=== PATIENT | female | born 1960 | race Caucasian/White ===

== ENCOUNTER 2017-07-09 | Emergency (ER) | payer OTHER ==
[~2017-07-09] VITALS: Ht 167.6 cm; Wt 55.0 kg
[~2017-07-09] MED LIST: DICY1TAB26 PO; MOTR200T PO; PRIL20TA2 PO; TAB-TAB PO; VITATAB11 PO; ZOFR4TAB3 SL
[2017-07-09 00:01] VITALS: PULSE 105; RESP 24; TEMP 98.7; O2SAT 100
[2017-07-09 00:30] VITALS: BP 105/56; PULSE 103; RESP 28; O2SAT 97
[2017-07-09] MEDS ORDERED: SODIUM CHLORIDE 0.9% FLUSH 10 ML FLUSH IVF PRN (00:30)
--- NOTE | 2017-07-09 00:58 | RADRPT ---
EXAM DATE/TIME: 07/09/2017 00:39 [facility] COMPARISON: No previous studies available for comparison. INDICATIONS : Cough. MEDICAL HISTORY : Chronic obstructive pulmonary disease. SURGICAL HISTORY : None. ENCOUNTER: Initial ACUITY: 1 day PAIN SCORE: 0/10 LOCATION: Bilateral chest FINDINGS: A single view of the chest demonstrates the lungs to be symmetrically aerated without evidence of mas s, infiltrate or effusion. The cardiomediastinal contours are unremarkable. Osseous structures are intact. CONCLUSION: No acute cardiopulmonary disease demonstrated. Kristian Abraham MD on July 09, 2017 at 0:56 Board Certified Radiologist. This report was verified electronically.
[2017-07-09 01:19] LABS: BICARBONATE 28.5 MEQ/L (21.0-32.0); POTASSIUM 3.4 MEQ/L (3.5-5.1)
--- NOTE | 2017-07-09 01:44 | PD ---
HPI . Cough Chief Complaint: General Weakness Time Seen by Provider: 00:30 Travel History International Travel<30 days: No Contact w/Intl Traveler<30days: No Traveled to known affect area: No History of Present Illness HPI This patient was sent to us from [facility] for evaluation of cough. She is currently at [facility] for alcohol abuse. She is of absolutely no use as far as a history is concerned. PFSH Past Medical History Cancer: Yes (vocal cord right side) COPD: Yes Diminished Hearing: No Respiratory: Yes (COPD) Immunizations Current: Yes Radiation Therapy: Yes (2004) Tetanus Vaccination: > 5 Years ?: Not : 2 Para: 2 Past Surgical History Cholecystectomy: Yes Genitourinary Surgery: Yes (fistula repair bladder) Hysterectomy: Yes (partial) Social History Alcohol Use: Yes (1 -2 drinks daily) Tobacco Use: Yes (1/2 PPD) Substance Use: No Allergies-Medications (Allergen,Severity, Reaction): Coded Allergies: penicillin G (Unverified Allergy, Severe, hives, 07/09/17) Reported Meds & Prescriptions Reported Meds & Active Scripts Active No Active Prescriptions or Reported Medications Review of Systems ROS Limitations: Poor Historian Respiratory: Positive: Cough Physical Exam Narrative GENERAL: This is a chronically ill-appearing woman who appears much older than her stated age. SKIN: warm/dry. Scattered old bruises. HEAD: Normocephalic. Atraumatic. EYES: Pupils equal and round. No scleral icterus. No injection or drainage. ENT: No nasal bleeding or discharge. Mucous membranes pink and moist. NECK: Trachea midline. Full range of motion without pain.. CARDIOVASCULAR: Regular rate and rhythm. Heart sounds are normal. RESPIRATORY: No accessory muscle use. Clear to auscultation. Breath sounds equal bilaterally. GASTROINTESTINAL: Abdomen soft. Nontender. Bowel sounds present. Nondistended. MUSCULOSKELETAL: No obvious deformities. NEUROLOGICAL: Awake and alert. No obvious cranial nerve deficits. Motor grossly within normal limits. Normal speech. PSYCHIATRIC: History of substance abuse. Data Data Last Documented VS Vital Signs Date Time Temp Pulse Resp B/P (MAP) Pulse Ox O2 Delivery O2 Flow Rate FiO2 07/09/17 00:30 103 28 105/56 (72) 97 2.00 07/09/17 00:01 98.7 Orders Orders Basic Metabolic Panel (Bmp) (07/09/17 00:30) Complete Blood Count With Diff (07/09/17 00:30) Chest, Single Ap (07/09/17 00:30) Sodium Chloride 0.9% Flush (Ns Flush) (07/09/17 00:30) Sodium Chlor 0.9% 1000 Ml Inj (Ns 1000 M (07/09/17 01:45) Labs Laboratory Tests Test 07/09/17 00:39 07/09/17 00:44 Blood Urea Nitrogen 8 MG/DL Creatinine 0.56 MG/DL Random Glucose 98 MG/DL Calcium Level 8.3 MG/DL Sodium Level 135 MEQ/L Potassium Level 3.4 MEQ/L Chloride Level 97 MEQ/L Carbon Dioxide Level 28.5 MEQ/L Anion Gap 10 MEQ/L Estimat Glomerular Filtration Rate 111 ML/MIN MDM Medical Decision Making Medical Screen Exam Complete: Yes Emergency Medical Condition: Yes Differential Diagnosis Differential diagnosis includes but is not limited to viral respiratory illness , bronchitis, pneumonia, allergies, CHF, asthma/COPD. Narrative Course Patient was sent to us from [facility] for the evaluation of cough. Vital Signs Date Time Temp Pulse Resp B/P (MAP) Pulse Ox O2 Delivery O2 Flow Rate FiO2 07/09/17 00:30 103 28 105/56 (72) 97 2.00 07/09/17 00:01 98.7 105 24 100 She is now off of oxygen and her sats continue to run in the upper 90s. Chest x-ray is negative for infiltrate. CBC Diagram 07/09/17 00:44 BMP Diagram 07/09/17 00:39 Calcium Level 8.3 L This patient is stable for discharge back to [facility]. I hand wrote her a prescription for Delsym. The long-acting formulation was not in our formulary. Diagnosis Primary Impression: Cough Patient Instructions: Acute Cough (ED), General Instructions Med/Other Pt SpecificInfo: Prescription(s) given Scripts No Active Prescriptions or Reported Meds Disposition: DISCHARGE HOME Condition: Stable Akiko Singh MD Jul 09, 2017 01:44
[2017-07-09] MEDS ORDERED: SODIUM CHLOR 0.9% 1000 ML INJ 1,000 ML IV ONE (01:45)
[2017-07-09 01:48] LABS: AUTOMATED NEUTROPHIL # 10.4 TH/MM3 (1.8-7.7); BASOPHIL % 0.1 % (0.0-2.0); HEMATOCRIT 38.5 % (35.0-46.0); HEMO FLAGS DIFF FINAL; LYMPH % 3.1 % (9.0-44.0); LYMPHOCYTE # 0.4 TH/MM3 (1.0-4.8); MEAN CELL VOLUME 108.6 FL (80.0-100.0); MEAN CORPUSCULAR HEMOGLOBIN 37.6 PG (27.0-34.0); MEAN CORPUSCULAR HGB CONC 34.7 % (32.0-36.0); NEUT % 86.8 % (16.0-70.0); PLATELET COUNT 183 TH/MM3 (150-450); RED BLOOD COUNT 3.55 MIL/MM3 (4.00-5.30); RED CELL DISTRIBUTION WIDTH 14.2 % (11.6-17.2)
[2017-07-09] MEDS ORDERED: CLON0.1T PO (22:19)
[2017-07-09] MEDS ORDERED: VIST25CA PO (22:19)
[2017-07-09] MEDS ORDERED: LORA-392 PO (22:19)
== END 2017-07-09 03:34 | disposition home or self-care (01) ==
LOC: NEPE → NEPB 03:34
DX: R05 Cough (principal); F17.200 Nicotine dependence, unspecified, uncomplicated
CPT/HCPCS: 71010; 80048; 85025; 99284; J7030

== ENCOUNTER 2017-07-09 19:14 | Inpatient (IN) | payer OTHER ==
[~2017-07-09] VITALS: Ht 149.9 cm; Wt 45.0 kg
[2017-07-09 19:56] VITALS: BP 102/69; PULSE 91; RESP 24; TEMP 98
[2017-07-09] MEDS ORDERED: RESP: ALBUTEROL 2.5 MG/IPRATROPIUM 0.5 MG NEB (SCH) NEB ONE (20:00)
[2017-07-09] MEDS ORDERED: methylPREDNISolone SOD SUCC 125 MG/2 ML VIAL IV PUSH ONE (20:00)
--- NOTE | 2017-07-09 20:01 | PD ---
HPI Chief Complaint: Respiratory Symptoms Time Seen by Provider: 19:39 Travel History International Travel<30 days: No Contact w/Intl Traveler<30days: No History of Present Illness HPI The patient is a 56 year old female who presents to the [facility] emergency department with a history of shortness of breath that she reports has gradually been worsening since Saturday. She reports that she's had a cough that has been intermittent only productive of yellow sputum for the last 2 months. The patient was seen in the emergency department yesterday and had an evaluation done and was discharged back to the [facility] to continue alcohol-related rehabilitation with a prescription for Delsym. The patient reports that she was admitted to the [facility] on Saturday for alcohol abuse. She reports that she was drinking vodka daily. 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 The patient is incidentally also noted to have older appearing ecchymosis underneath the right eye and a Band-Aid over the nasal bridge. She reports that she fell approximately a week ago. She reports having a headache and neck pain. She denies being evaluated for this previously. The patient reports that she does have a history of COPD. The patient is brought in by ambulance services. The patient's O2 saturations on room air were 88% prior to arrival. The patient was placed on 2 L nasal cannula by ambulance services and her O2 saturation came up to 92-93%. She denies being on oxygen at home. On review of systems, she denies any recent known fevers, neck pain, chest pain, abdominal pain, vomiting, diarrhea, urinary symptoms, or neurologic symptoms. The patient reports that she did have vomiting on Saturday, however this resolved. [facility] Past Medical History Narrative Medical The patient's past medical history is significant for vocal cord cancer status post surgery and radiation therapy, history of COPD, history of alcohol abuse, currently in rehabilitation, history of tobacco abuse. Cancer: Yes (vocal cord right side) COPD: Yes Diminished Hearing: No Respiratory: Yes (COPD) Immunizations Current: Yes Radiation Therapy: Yes (2004) : 2 Para: 2 Past Surgical History Narrative Surgical The patient's past surgical history is significant for a cholecystectomy, fistula repair, partial hysterectomy Cholecystectomy: Yes Genitourinary Surgery: Yes (fistula repair bladder) Hysterectomy: Yes (partial) Social History Alcohol Use: No (in rehabilitation since Saturday) Tobacco Use: Yes (1/2 PPD) Substance Use: No Allergies-Medications (Allergen,Severity, Reaction): Coded Allergies: penicillin G (Verified Allergy, Severe, hives, 07/09/17) Reported Meds & Prescriptions Reported Meds & Active Scripts Active Reported Clonidine (Clonidine HCl) 0.1 Mg Tab 0.1 Mg PO Q3HR PRN Vistaril (Hydroxyzine Pamoate) 25 Mg Cap 25 Mg PO Q6H PRN Ativan (Lorazepam) 0.5 Mg Tab 0.5 Mg PO Q6H PRN Review of Systems Except as stated in HPI: all other systems reviewed are Neg General / Constitutional: No: Fever Eyes: No: Visual changes HENT: Positive: Congestion, No: Headaches Cardiovascular: Positive: Dyspnea on exertion, No: Chest Pain or Discomfort Respiratory: Positive: Cough, Shortness of Breath Gastrointestinal: Positive: Nausea, Vomiting (last a few days ago), No: Diarrhea, Abdominal Pain Genitourinary: No: Dysuria Musculoskeletal: No: Pain Skin: No Rash Neurologic: No: Weakness, Focal Abnormalities, Change in Mentation, Slurred Speech, Sensory Disturbance Psychiatric: No: Depression Endocrine: No: Polydipsia Hematologic/Lymphatic: No: Easy Bruising Physical Exam Narrative General: The patient is a well-developed thin appearing female in no acute distress. Head and Neck exam: Head is normocephalic, evidence of older appearing trauma with an area of older appearing bruise underneath the right eye, abrasion over lying the nasal bridge. No crepitus or step-off. No increase facial bone motility on palpation. Eyes: EOMI, pupils are equal round and reactive to light. Nose: Midline septum with pink mucous membranes Mouth: Dentition unremarkable. Moist mucus membranes. Posterior oropharynx is not erythematous. No tonsillar hypertrophy. Uvula midline. Airway patent. Neck: No palpable lymphadenopathy. No nuchal rigidity. No thyromegaly. No spinous process tenderness to palpation, no step-off or crepitus, no erythema or ecchymosis. The patient does however have paraspinal muscle tenderness on palpation of the cervical spine musculature bilaterally. She reports neck tightness with rotation of her neck and flexion and extension. Cardiovascular: Regular rate and rhythm without murmurs, gallops, or rubs. Lungs: Clear to auscultation bilaterally. No wheezes, rhonchi, or rales. Abdomen: Soft, without tenderness to palpation in all 4 quadrants of the abdomen. No guarding, rebound, or rigidity. Normal bowel sounds are audible. No tenderness on palpation of McBurney's point. Extremities: No clubbing, cyanosis, or edema. 2+ pulses in all 4 extremities. No calf tenderness on palpation. Back: No spinous process tenderness to palpation. No costovertebral angle tenderness to palpation. Neurologic Exam: Grossly nonfocal. Skin Exam: No rash noted. Intact skin that is warm and dry. Data Data Last Documented VS Vital Signs Date Time Temp Pulse Resp B/P (MAP) Pulse Ox O2 Delivery O2 Flow Rate FiO2 07/09/17 21:06 94 Nasal Cannula 2.00 07/09/17 20:52 92 24 07/09/17 19:56 98.0 102/69 (80) Orders Orders Electrocardiogram (07/09/17 19:51) Complete Blood Count With Diff (07/09/17 19:51) Comprehensive Metabolic Panel (07/09/17 19:51) Ckmb (Isoenzyme) Profile (07/09/17 19:51) Troponin I (07/09/17 19:51) B-Type Natriuretic Peptide (07/09/17 19:51) Prothrombin Time / Inr (Pt) (07/09/17 19:51) Act Partial Throm Time (Ptt) (07/09/17 19:51) Blood Culture (07/09/17 19:51) Urinalysis - C+S If Indicated (07/09/17 19:51) D-Dimer (07/09/17 19:51) Magnesium (Mg) (07/09/17 19:51) Chest, Single Ap (07/09/17 19:51) Ct Brain W/O Iv Contrast(Rout) (07/09/17 19:51) Iv Access Insert/Monitor (07/09/17 19:51) Ecg Monitoring (07/09/17 19:51) Oximetry (07/09/17 19:51) Lactic Acid Sepsis Protocol (07/09/17 19:51) Ct Cerv Spine W/O Contrast (07/09/17 ) Methylprednisolone So Succ Inj (Solumedr (07/09/17 20:00) Albuterol-Ipratropium Neb (Duoneb Neb) (07/09/17 20:00) Urine Culture (07/09/17 20:40) Ceftriaxone Inj (Rocephin Inj) (07/09/17 21:30) Azithromycin Inj (Zithromax Inj) (07/09/17 21:30) Mri C Spine W&W/O Contrast (07/09/17 ) Admit Order (Ed Use Only) (07/09/17 21:54) Ct Pulmonary Angiogram (07/09/17 ) Place In Observation (07/09/17 ) Vital Signs (Adult) Q4H (07/09/17 22:05) Activity Oob With Assistance (07/09/17 22:05) Sign Artist / Telemetry .CONTINUOUS (07/09/17 22:05) Diet Heart Healthy (07/10/17 Breakfast) Sodium Chloride 0.9% Flush (Ns Flush) (07/09/17 22:15) Sodium Chloride 0.9% Flush (Ns Flush) (07/10/17 09:00) Basic Metabolic Panel (Bmp) (07/10/17 06:00) Complete Blood Count With Diff (07/10/17 06:00) Case Management Consult (07/09/17 22:05) Naloxone Inj (Narcan Inj) (07/09/17 22:15) Labs Laboratory Tests Test 07/09/17 20:40 White Blood Count 11.8 TH/MM3 Red Blood Count 3.13 MIL/MM3 Hemoglobin 11.6 GM/DL Hematocrit 33.6 % Mean Corpuscular Volume 107.4 FL Mean Corpuscular Hemoglobin 37.1 PG Mean Corpuscular Hemoglobin Concent 34.5 % Red Cell Distribution Width 14.3 % Platelet Count 149 TH/MM3 Mean Platelet Volume 7.7 FL Neutrophils (%) (Auto) 78.5 % Lymphocytes (%) (Auto) 7.3 % Monocytes (%) (Auto) 13.5 % Eosinophils (%) (Auto) 0.5 % Basophils (%) (Auto) 0.2 % Neutrophils # (Auto) 9.2 TH/MM3 Lymphocytes # (Auto) 0.9 TH/MM3 Monocytes # (Auto) 1.6 TH/MM3 Eosinophils # (Auto) 0.1 TH/MM3 Basophils # (Auto) 0.0 TH/MM3 CBC Comment DIFF FINAL Differential Comment Prothrombin Time 12.0 SEC Prothromb Time International Ratio 1.1 RATIO Activated Partial Thromboplast Time 31.7 SEC D-Dimer Quantitative (PE/DVT) 3.06 MG/L FEU Urine Color YELLOW Urine Turbidity HAZY Urine pH 5.5 Urine Specific [place] 1.010 Urine Protein NEG mg/dL Urine Glucose (UA) NEG mg/dL Urine Ketones 10 mg/dL Urine Occult Blood NEG Urine Nitrite POS Urine Bilirubin NEG Urine Urobilinogen 8.0 MG/DL Urine Leukocyte Esterase LARGE Urine RBC 2 /hpf Urine WBC 19 /hpf Urine Squamous Epithelial Cells 2 /hpf Urine Bacteria MANY /hpf Urine Mucus FEW /lpf Microscopic Urinalysis Comment CULTURE INDICATED Blood Urea Nitrogen 10 MG/DL Creatinine 0.40 MG/DL Random Glucose 86 MG/DL Total Protein 5.9 GM/DL Albumin 1.9 GM/DL Calcium Level 8.2 MG/DL Magnesium Level 1.4 MG/DL Alkaline Phosphatase 132 U/L Aspartate Amino Transf (AST/SGOT) 54 U/L Alanine Aminotransferase (ALT/SGPT) 18 U/L Total Bilirubin 0.8 MG/DL Sodium Level 136 MEQ/L Potassium Level 3.2 MEQ/L Chloride Level 101 MEQ/L Carbon Dioxide Level 24.5 MEQ/L Anion Gap 11 MEQ/L Estimat Glomerular Filtration Rate 164 ML/MIN Lactic Acid Level 0.8 mmol/L Total Creatine Kinase 24 U/L Troponin I LESS THAN 0.02 NG/ML B-Type Natriuretic Peptide 316 PG/ML MDM Medical Decision Making Medical Screen Exam Complete: Yes Emergency Medical Condition: Yes Medical Record Reviewed: Yes Differential Diagnosis COPD exacerbation, versus pulmonary embolus, versus pneumonia, versus new-onset congestive heart failure, versus acute coronary syndrome Narrative Course During the course of the patients emergency department visit, the patients history, examination, and differential diagnosis were reviewed with the patient. The patient had IV access obtained and blood work sent for analysis. The patient was placed on a general expeditor with oximetry and blood pressure monitoring. The patient had an ECG done on arrival. The patient's ECG shows a sinus rhythm with a short NE interval, right bundle branch block with a QRS duration of 122 ms, QTC 453 ms, no acute ST segment elevation. T waves are inverted in V1. The patient was initially provided Solu-Medrol 125 mg IV, DuoNeb 1. Rocephin 1 g IV, Zithromax 500 IV for respiratory coverage of suspected bronchitis versus pneumonia with a COPD exacerbation. The patients laboratory studies were reviewed and remarkable for a white count of 11.8, hemoglobin 11.6, platelets 149 with 78.5 neutrophils, lymphocytes 7.3, monocytes 13.5. CMP is remarkable for potassium of 3.2 which will be supplemented orally, creatinine 0.40, calcium 8.2, magnesium 1.4 which will be supplemented IV, AST 54, alkaline phosphatase 132, CPK 24, troponin I less than 0.02, BNP 316, albumin 1.9, urinalysis shows positive nitrite 8 urobilinogen, large leukocyte esterase, 19 WBCs and many bacteria, culture indicated. The patient's initial dose of Rocephin will cover for urinary tract infection. Radiology studies were reviewed and remarkable for a chest x-ray that shows volume loss in the right chest, prominence of the hilar regions. The prominent hilar regions and the volume loss of the right chest could be further evaluated with a CT scan ideally with contrast according to the reading radiologist. CT scan of the brain showed no acute abnormality. CT scan of the C-spine was called to me by Dr. Johnston as showing a C3 vertebral lucency that appears to be chronic, and a right lateral recess disc protrusion with epidural mass like effect. He recommended an MRI of the C-spine with and without contrast on a nonemergent basis to further evaluate these abnormalities. The MRI was ordered. The patients results were discussed with the patient, including the plan of care. I explained that further testing and/ or monitoring is indicated based on the patients history, examination, and/ or laboratory findings. Therefore, I recommended admission for additional evaluation. The patient expressed understanding and was agreeable with this plan. The patient was admitted to the hospital in stable condition and [facility] Communication Physician Communication The patient's case is discussed with Dr. Rosales who did agree to admit the patient for further evaluation and treatment at this time. Diagnosis Primary Impression: Hypoxemia Additional Impressions: Shortness of breath Abnormal CT scan, cervical spine Admitting Information Admitting Physician Requests: Admit Keesha Portillo MD Jul 09, 2017 20:01
--- NOTE | 2017-07-09 20:47 | RADRPT ---
EXAM DATE/TIME: 07/09/2017 20:04 [facility] COMPARISON: CHEST SINGLE AP, July 09, 2017, 0:39. INDICATIONS : Short of breath. MEDICAL HISTORY : Chronic obstructive pulmonary disease. SURGICAL HISTORY : None. ENCOUNTER: Initial ACUITY: 1 day PAIN SCORE: 0/10 LOCATION: Bilateral chest FINDINGS: There is volume loss in the right chest with shift of the heart and mediastinal structures towards th e right and elevation of the right hemidiaphragm. The hilar regions appear somewhat prominent. There is minimal increased density seen at the right base. The left lung is clear. Surgical hardware is see n at the proximal left humerus. CONCLUSION: 1. Volume loss in the right chest. 2. Prominence of the hilar regions. 3. The prominent hilar regions and the volume loss at the right chest could be further evaluated with a CT examination ideally with contrast if there is no contraindication. Kristian Fierro MD on July 09, 2017 at 20:43 Board Certified Radiologist. This report was verified electronically.
[2017-07-09 20:53] LABS: AUTOMATED NEUTROPHIL # 9.2 TH/MM3 (1.8-7.7); BASOPHIL % 0.2 % (0.0-2.0); EOSINOPHIL # 0.1 TH/MM3 (0-0.4); EOSINOPHIL % 0.5 % (0.0-4.0); HEMATOCRIT 33.6 % (35.0-46.0); HEMO FLAGS DIFF FINAL; LYMPH % 7.3 % (9.0-44.0); LYMPHOCYTE # 0.9 TH/MM3 (1.0-4.8); MEAN CELL VOLUME 107.4 FL (80.0-100.0); MEAN CORPUSCULAR HEMOGLOBIN 37.1 PG (27.0-34.0); MEAN CORPUSCULAR HGB CONC 34.5 % (32.0-36.0); MONO % 13.5 % (0.0-8.0); NEUT % 78.5 % (16.0-70.0); PLATELET COUNT 149 TH/MM3 (150-450); RED BLOOD COUNT 3.13 MIL/MM3 (4.00-5.30); RED CELL DISTRIBUTION WIDTH 14.3 % (11.6-17.2); WHITE BLOOD COUNT 11.8 TH/MM3 (4.0-11.0)
[2017-07-09 20:54] VITALS: O2SAT 94
[2017-07-09 21:00] LABS: BACTERIA, URINE MANY /hpf; BLOOD, URINE NEG (NEG); COMMENT (UR) CULTURE INDICATED; CULTURE IF INDICATED CULTURE INDICATED; GLUCOSE,URINE NEG (NEG); KETONE, URINE 10 mg/dL (NEG); MUCUS URINE FEW /lpf (OCC); NITRITE,URINE POS (NEG); PH, URINE 5.5 (5.0-8.5); SQUAMOUS EPITHELIAL CELL URINE 2 /hpf (0-5); URINE COLOR YELLOW (YELLW/STRAW)
[2017-07-09 21:06] VITALS: O2SAT 94
[2017-07-09 21:18] LABS: ANION GAP 11 MEQ/L (5-15); AST (GOT) 54 U/L (15-37); BICARBONATE 24.5 MEQ/L (21.0-32.0); BLOOD UREA NITROGEN 10 MG/DL (7-18); CHLORIDE 101 MEQ/L (98-107); GLOMERULAR FILTRATION RATE 164 ML/MIN (>89); MAGNESIUM 1.4 MG/DL (1.5-2.5); POTASSIUM 3.2 MEQ/L (3.5-5.1); SODIUM (NA) 136 MEQ/L (136-145)
[2017-07-09 21:19] LABS: ALT (GPT) 18 U/L (10-53)
[2017-07-09 21:22] LABS: ALKALINE PHOSPHATASE 132 U/L (45-117); TOTAL BILIRUBIN ADULT 0.8 MG/DL (0.2-1.0)
[2017-07-09] MEDS ORDERED: AZITHROMYCIN INJ 500 MG in SODIUM CHLOR 0.9% 250 ML INJ 250 ML IV ONE (21:30)
[2017-07-09] MEDS ORDERED: cefTRIAXone INJ 1,000 MG in SODIUM CHLORIDE 0.9% INJ 100 ML IV ONE (21:30)
[2017-07-09 21:32] LABS: CREATINE KINASE 24 U/L (26-192)
--- NOTE | 2017-07-09 21:38 | RADRPT ---
EXAM DATE/TIME: 07/09/2017 20:45 [facility] COMPARISON: No previous studies available for comparison. INDICATIONS : Trauma, fall. RADIATION DOSE: 50.16 CTDIvol (mGy) MEDICAL HISTORY : Chronic obstructive pulmonary disease. Cancer of vocal cords, right side. SURGICAL HISTORY : Hysterectomy. Cholecystectomy. ENCOUNTER: Initial ACUITY: 1 day PAIN SCALE: 6/10 LOCATION: cranial TECHNIQUE: Multiple contiguous axial images were obtained of the head. Using automated exposure control and adj ustment of the mA and/or kV according to patient size, radiation dose was kept as low as reasonably a chievable to obtain optimal diagnostic quality images. DICOM format image data is available electro nically for review and comparison. FINDINGS: CEREBRUM: The ventricles are normal for age. No evidence of midline shift, mass lesion, hemorrhage or acute in farction. No extra-axial fluid collections are seen. POSTERIOR FOSSA: The cerebellum and brainstem are intact. The 4th ventricle is midline. The cerebellopontine angle i s unremarkable. EXTRACRANIAL: The visualized portion of the orbits is intact. SKULL: The calvaria is intact. No evidence of skull fracture. CONCLUSION: No acute disease. Kristian Fierro MD on July 09, 2017 at 21:36 Board Certified Radiologist. This report was verified electronically.
[2017-07-09 21:48] LABS: APTT (PATIENT) 31.7 SEC (24.3-30.1); INTERNATIONAL NORMALIZED RATIO 1.1 RATIO
--- NOTE | 2017-07-09 22:06 | RADRPT ---
EXAM DATE/TIME: 07/09/2017 20:45 [facility] COMPARISON: No previous studies available for comparison. INDICATIONS : Trauma, fall. RADIATION DOSE: 36.36 CTDIvol (mGy) MEDICAL HISTORY : Chronic obstructive pulmonary disease. Vocal cord cancer, right side. SURGICAL HISTORY : Cholecystectomy. Hysterectomy. ENCOUNTER: Initial ACUITY: 1 day PAIN SCALE: 4/10 LOCATION: Neck TECHNIQUE: Volumetric scanning of the cervical spine was performed. Multiplanar reconstructions i n the sagittal, coronal and oblique axial planes were performed. Using automated exposure control a nd adjustment of the mA and/or kV according to patient size, radiation dose was kept as low as reason ably achievable to obtain optimal diagnostic quality images. DICOM format image data is available e lectronically for review and comparison. FINDINGS: VERTEBRAE: There is a focal lucent area seen at the anterior inferior aspect of the C3 vertebral body measuring approximately 0.6 x 0.5 cm. There is some possible minimal fragmentation at the ante rior inferior cortex of C3 associated with this lucent lesion. The remaining aspect of the C3 vertebr al body is intact. No other possible focal bone lesions are seen. There is air within the soft tiss ues in the prevertebral soft tissues and in the anterior epidural space. There is a vacuum phenomeno n at the C3-C4 disc space. An injury to this level could result in the intradiscal gas escaping into the soft tissues. Gas is not seen in any other disc level. The craniovertebral junction is intact. The C1 ring is intact. The C1-C2 articulation and dens are intact. ALIGNMENT: No evidence of subluxation. C2-C3: The disc space is intact. There is air within the anterior right lateral epidural space. Th ere is some mild expansion with increased density seen in the anterior right lateral epidural space w hich may represent a mild area of hemorrhage. There continues to be CSF around the cord. C3-C4: Again noted is the vacuum phenomenon. The disc appears decreased in height. There is a right lateral recess suspected disc protrusion. Air is seen within this region. This causes at least a m ild impression on the anterior right lateral aspect of the thecal sac. There is some narrowing of th e right neural foramina secondary to this. The left neural foramina is patent. There is a thin laye r of CSF seen around the cord. C4-C5: The posterior disc margin appears grossly intact. Significant spinal stenosis is not appreci ated. The neural foramina are grossly intact. C5-C6: Disc space is intact. There is no spinal stenosis and the neural foramina are normal. C6-C7: Disc space is intact. There is no spinal stenosis and the neural foramina are normal. C7-T1: Disc space is intact. There is no spinal stenosis and the neural foramina are normal. CONCLUSION: 1. Focal lucent lesion at the anterior-inferior aspect of the C3 vertebral body. Much of the anterio r cortex over this region is missing. There is some fragmentation at the anterior-inferior cortex wh ich may represent some minimal fracturing of the anterior-inferior aspect of the C3 vertebral body at the margin of this lucent mass. The remaining aspect of the C3 vertebral body is intact. 2. Right lateral recess mild disc protrusion at the C3-C4 level. There does appear to be increased so ft tissue density in the anterior right lateral epidural space at this region and extending to the C2 -3 level. This could be secondary to some degree of superior extrusion and/or some degree of accompa nying hemorrhage. There does continue to be CSF around the cord at these levels. 3. Air within the epidural space and the prevertebral soft tissues likely from disruption of the C3-4 disc. 4. The cervical spine could be further evaluated with an MRI examination with and without contrast. The above information was relayed to Dr. Portillo by telephone. Kirstian Fierro MD on July 09, 2017 at 21:37 Board Certified Radiologist. This report was verified electronically.
[2017-07-09] MEDS ORDERED: SODIUM CHLORIDE 0.9% FLUSH 10 ML FLUSH IV FLUSH PRN (22:15)
[2017-07-09] MEDS ORDERED: IOHEXOL 350 MG/ML 10 ML VIAL (for RAD DIAG) IVCONTRAST ONE (22:15)
[2017-07-09] MEDS ORDERED: NALOXONE HCL 0.4 MG/ML AMP IV PUSH PRN (22:15)
[2017-07-09] MEDS ORDERED: VIST25CA PO (22:19)
[2017-07-09] MEDS ORDERED: CLON0.1T PO (22:19)
[2017-07-09] MEDS ORDERED: LORA-392 PO (22:19)
[2017-07-09] MEDS ORDERED: MAGNESIUM SULFATE 1 GM PREMIX 100 ML IV ONE (22:30)
[2017-07-09] MEDS ORDERED: POTASSIUM CHLORIDE 20 MEQ CONTROLLED RELEASE TAB PO ONE (22:30)
[2017-07-10] VITALS (7 sets, daily range): BP systolic 104–114; BP diastolic 57–76; PULSE 70–89; RESP 17–24; TEMP 96.2–98; O2SAT 90–98
--- NOTE | 2017-07-10 00:01 | RADRPT ---
EXAM DATE/TIME: 07/09/2017 23:22 [facility] COMPARISON: Report only CT ABDOMEN & PELVIS W/O CONTRAST, June 05, 2013, 19:22. INDICATIONS : Short of breath. IV CONTRAST: 60 cc Omnipaque 350 (iohexol) IV RADIATION DOSE: 4.37 CTDIvol (mGy) MEDICAL HISTORY : Chronic obstructive pulmonary disease. Vocal cord cancer. SURGICAL HISTORY : Cholecystectomy. Hysterectomy.Arm sx. ENCOUNTER: Initial ACUITY: 1 day PAIN SCALE: 3/10 LOCATION: Bilateral cranial TECHNIQUE: Volumetric scanning of the chest was performed using a pulmonary embolism protocol MIP images were re constructed. Using automated exposure control and adjustment of the mA and/or kV according to patien t size, radiation dose was kept as low as reasonably achievable to obtain optimal diagnostic quality images. DICOM format image data is available electronically for review and comparison. Follow-up recommendations for detected pulmonary nodules are based at a minimum on nodule size and pa tient risk factors according to Fleischner Society Guidelines. FINDINGS: There is no pulmonary embolus. Right side of the heart is enlarged and central pulmonary arteries are prominent caliber suggesting pulmonary hypertension. Patient has mild to moderate emphysema. A tiny pericardial effusion is present. Patchy infiltrates seen of both lungs, especially right greater the left bases and in the medial lingula. A few scattered areas of nodular consolidation are noted, 9 x 17 mm in the left upper lobe 14 x 18 mm in the right upper lobe, a 7 x 10 mm in the right lower lobe and 7 x 10 mm in the right up per lobe. A tiny right pleural effusion is present. There is no pneumothorax. 13 x 20 mm right hilar lymph node. No mediastinal or left hilar lymphadenopathy demonstrated. No acute abnormality seen of the upper abdomen. A few scattered calcifications are noted within the samira er, have been described previously. CONCLUSION: 1. No pulmonary embolus. 2. Suspected pulmonary artery hypertension. 3. Mild to moderate emphysema. 4. Patchy bilateral infiltrate including bilateral nodular areas which are most likely infectious or inflammatory. Followup noncontrast chest CT is recommended in approximately 3 months. The nonspecific mildly enlarged right hilar lymph node should be rechecked at that time as well. 5. Tiny pericardial effusion. Kristian Abraham MD on July 09, 2017 at 23:53 Board Certified Radiologist. This report was verified electronically.
[2017-07-10] MEDS ORDERED: LORazepam 2 MG TAB PO PRN (01:00)
[2017-07-10] MEDS ORDERED: LORazepam 1 MG TAB PO PRN (01:00)
[2017-07-10] MEDS ORDERED: LORazepam 2 MG/ML VIAL IV PUSH PRN ×4 (01:00)
[2017-07-10] MEDS ORDERED: FLUMAZENIL 0.5 MG/5 ML VIAL IV PUSH PRN (01:00)
--- NOTE | 2017-07-10 04:45 | HHI.HP ---
[facility] No Primary Care Physician Admission Diagnosis COPD exacerbation, hypoxemia on RA, Acute cervical disc protrusion Diagnoses: (1) Bilateral pneumonia (2) Hypoxemia Chief Complaint: Low oxygen saturation, weakness, high blood pressure Travel History International Travel<30 Days: No Contact w/Intl Traveler <30 Da: No Traveled to Known Affected Are: No History of Present Illness Written by Ana Velez, acting as scribe for Dr. Rosales on 07/10/17 at 04:45. The patient is seen in the CDU. The patient states that she came to the hospital because her oxygen was low, high blood pressure, neck and head pain. The patient came here from [facility] where she is being detoxified. She said she stood up there and felt weak and fell down face first a few days ago. Denies chest pain, palpations prior to fall. Denies syncope. She states she wasn't getting up, wasn't able to eat, wasn't able to take care of herself. She says she had a fever: once was over 101 and another time over 99. They didn 't like the way she was breathing. She also had a cough but she states this is a chronic smoker's cough. Her oxygen saturation was checked and it was in the 70's. Cough with sputum that was no different than her normal. Denies fever, chest pain, abdominal pain, nausea, vomiting, diarrhea, black or bloody stool. . Review of Systems Except as stated in HPI: all other systems reviewed are Neg Past Family Social History Past Medical History COPD - not on home oxygen Valvular heart disease - when she was in her 20's treated with antibiotics by Dr. Mullins per patient; never treated surgically Cancer of vocal cord s/p radiation Denies hypertension, diabetes mellitus, CAD, CHF, COPD, liver or kidney problems , blood clots in legs or lungs, CVA, seizures . Past Surgical History Hysterectomy Cholecystectomy Bladder fistula surgery Left wrist fracture repair Left humerus fracture repair . Reported Medications Reported Meds & Active Scripts Active Reported Clonidine (Clonidine HCl) 0.1 Mg Tab 0.1 Mg PO Q3HR PRN Vistaril (Hydroxyzine Pamoate) 25 Mg Cap 25 Mg PO Q6H PRN Ativan (Lorazepam) 0.5 Mg Tab 0.5 Mg PO Q6H PRN . Allergies: Coded Allergies: penicillin G (Verified Allergy, Severe, hives, 07/09/17) Active Ordered Medications Current Medications Methylprednisolone Sodium Succinate (SoluMEDROL INJ) 125 mg ONCE ONCE IV PUSH Last administered on 07/09/17 20:00; Start 07/09/17 at 20:00; Stop 07/09/17 at 20:01; Status DC Albuterol/ Ipratropium (Duoneb Neb) 1 ampule ONCE ONCE NEB Last administered on 07/09/17 21:04; Start 07/09/17 at 20:00; Stop 07/09/17 at 20:01; Status DC Ceftriaxone Sodium 1000 mg/ Sodium Chloride 100 ml @ 200 mls/hr ONCE ONCE IV Last administered on 07/09/17 23:05; Start 07/09/17 at 21:30; Stop 07/09/17 at 21:59; Status DC Azithromycin 500 mg/Sodium Chloride 250 ml @ 250 mls/hr ONCE ONCE IV Last administered on 07/10/17 01:43; Start 07/09/17 at 21:30; Stop 07/09/17 at 22:29 ; Status DC Sodium Chloride (NS Flush) 2 ml UNSCH PRN IV FLUSH FLUSH AFTER USING IV ACCESS ; Start 07/09/17 at 22:15 Sodium Chloride (NS Flush) 2 ml BID IV FLUSH ; Start 07/10/17 at 09:00 Naloxone HCl (Narcan Inj) 0.4 mg UNSCH PRN IV PUSH SEE LABEL COMMENTS; Start 07/09/17 at 22:15 Potassium Chloride (KCl) 20 meq ONCE ONCE PO Last administered on 07/09/17 23 :05; Start 07/09/17 at 22:30; Stop 07/09/17 at 22:31; Status DC Magnesium Sulfate/ Dextrose 100 ml @ 100 mls/hr ONCE ONCE IV Last administered on 07/09/17 23:05; Start 07/09/17 at 22:30; Stop 07/09/17 at 23:29 ; Status DC Iohexol (Omnipaque 350 Inj) 60 ml STK-MED ONCE IVCONTRAST Last administered on 07/09/17t 22:15; Start 07/09/17 at 22:15; Stop 07/09/17 at 23:30; Status DC Folic Acid (Folate) 1 mg DAILY PO ; Start 07/10/17 at 09:00; Stop 07/15/17 at 08 :59 Thiamine HCl (Vitamin B1) 100 mg DAILY PO ; Start 07/10/17 at 09:00 Multivitamins/ Minerals Therapeutic (Theragran M Tab) 1 tab DAILY PO ; Start at 09:00; Stop 07/15/17 at 08:59 Flumazenil (Romazicon Inj) 0.2 mg Q1M PRN IV PUSH SEE LABEL COMMENTS; Start at 01:00 Lorazepam (Ativan) 1 mg Q4H PRN PO CIWA 8 - 10; Start 07/10/17 at 01:00 Lorazepam (Ativan Inj) 1 mg Q4H PRN IV PUSH CIWA 8 - 10; Start 07/10/17 at 01: 00 Lorazepam (Ativan) 2 mg Q2H PRN PO CIWA 11-14; Start 07/10/17 at 01:00 Lorazepam (Ativan Inj) 2 mg Q2H PRN IV PUSH CIWA 11-14; Start 07/10/17 at 01:00 Lorazepam (Ativan Inj) 2 mg Q1H PRN IV PUSH CIWA 15-20; Start 07/10/17 at 01:00 Lorazepam (Ativan Inj) 2 mg Q15M PRN IV PUSH CIWA > 20; Start 07/10/17 at 01:00 . Family History Denies any family history of cancers, heart disease . Social History Tobacco: smokes 1 PPD Alcohol: excessive alcohol intake; "I drink a lot" Illicit Drugs: former IVDA . Physical Exam Vital Signs Vital Signs Date Time Temp Pulse Resp B/P (MAP) Pulse Ox O2 Delivery O2 Flow Rate FiO2 07/10/17 03:45 97.8 80 17 113/76 (88) 98 07/10/17 00:18 98.0 83 18 114/75 (88) 96 07/09/17 21:06 94 Nasal Cannula 2.00 07/09/17 20:54 94 Nasal Cannula 2.00 07/09/17 20:52 92 24 92 Nasal Cannula 07/09/17 19:56 98.0 91 24 102/69 (80) Physical Exam GENERAL: This is a thin, chronically ill-appearing patient, in no apparent distress. SKIN: No rashes. Cool and dry. Multiple ecchymotic areas noted on upper extremities. HEAD: Atraumatic. Normocephalic. EYES: No scleral icterus. No injection or drainage. ENT: Nose without bleeding, purulent drainage. Uvula midline. Hypophonia. NECK: Trachea midline. No JVD. CARDIOVASCULAR: Regular rate and rhythm without murmurs, gallops, or rubs. RESPIRATORY: Clear to auscultation. Breath sounds equal bilaterally. No wheezes , rales, or rhonchi. GASTROINTESTINAL: Abdomen soft, non-tender, nondistended. No guarding. MUSCULOSKELETAL: Extremities without clubbing, cyanosis, or edema. No calf tenderness. NEUROLOGICAL: Sleepy. Motor and sensory grossly within normal limits. Normal speech. . Laboratory Laboratory Tests Test 07/09/17 20:40 White Blood Count 11.8 Red Blood Count 3.13 Hemoglobin 11.6 Hematocrit 33.6 Mean Corpuscular Volume 107.4 Mean Corpuscular Hemoglobin 37.1 Mean Corpuscular Hemoglobin Concent 34.5 Red Cell Distribution Width 14.3 Platelet Count 149 Mean Platelet Volume 7.7 Neutrophils (%) (Auto) 78.5 Lymphocytes (%) (Auto) 7.3 Monocytes (%) (Auto) 13.5 Eosinophils (%) (Auto) 0.5 Basophils (%) (Auto) 0.2 Neutrophils # (Auto) 9.2 Lymphocytes # (Auto) 0.9 Monocytes # (Auto) 1.6 Eosinophils # (Auto) 0.1 Basophils # (Auto) 0.0 CBC Comment DIFF FINAL Differential Comment Prothrombin Time 12.0 Prothromb Time International Ratio 1.1 Activated Partial Thromboplast Time 31.7 D-Dimer Quantitative (PE/DVT) 3.06 Urine Color YELLOW Urine Turbidity HAZY Urine pH 5.5 Urine Specific [place] 1.010 Urine Protein NEG Urine Glucose (UA) NEG Urine Ketones 10 Urine Occult Blood NEG Urine Nitrite POS Urine Bilirubin NEG Urine Urobilinogen 8.0 Urine Leukocyte Esterase LARGE Urine RBC 2 Urine WBC 19 Urine Squamous Epithelial Cells 2 Urine Bacteria MANY Urine Mucus FEW Microscopic Urinalysis Comment CULTURE INDICATED Blood Urea Nitrogen 10 Creatinine 0.40 Random Glucose 86 Total Protein 5.9 Albumin 1.9 Calcium Level 8.2 Magnesium Level 1.4 Alkaline Phosphatase 132 Aspartate Amino Transf (AST/SGOT) 54 Alanine Aminotransferase (ALT/SGPT) 18 Total Bilirubin 0.8 Sodium Level 136 Potassium Level 3.2 Chloride Level 101 Carbon Dioxide Level 24.5 Anion Gap 11 Estimat Glomerular Filtration Rate 164 Lactic Acid Level 0.8 Total Creatine Kinase 24 Troponin I LESS THAN 0.02 B-Type Natriuretic Peptide 316 Date/Time Source Procedure Growth Status 07/09/17 20:40 Blood Peripheral Aerobic Blood Culture Pending Received 07/09/17 20:40 Blood Peripheral Anaerobic Blood Culture Pending Received 07/09/17 20:40 Urine Random Urine Urine Culture Pending Received Result Diagram: 07/09/17203907/09/172039 Imaging Last Impressions Head CT 07/09/171950 Signed Impressions: Service Date/Time: Sunday, July 09, 2017 20:45 - CONCLUSION: No acute disease. Kristian Fierro MD Chest X-Ray 07/09/171950 Signed Impressions: Service Date/Time: Sunday, July 09, 2017 20:04 - CONCLUSION: 1. Volume loss in the right chest. 2. Prominence of the hilar regions. 3. The prominent hilar regions and the volume loss at the right chest could be further evaluated with a CT examination ideally with contrast if there is no contraindication. Kristian Fierro MD Cervical Spine CT 07/09/17 0000 Signed Impressions: Service Date/Time: Sunday, July 09, 2017 20:45 - CONCLUSION: 1. Focal lucent lesion at the anterior-inferior aspect of the C3 vertebral body. Much of the anterior cortex over this region is missing. There is some fragmentation at the anterior-inferior cortex which may represent some minimal fracturing of the anterior-inferior aspect of the C3 vertebral body at the margin of this lucent mass. The remaining aspect of the C3 vertebral body is intact. 2. Right lateral recess mild disc protrusion at the C3-C4 level. There does appear to be increased soft tissue density in the anterior right lateral epidural space at this region and extending to the C2-3 level. This could be secondary to some degree of superior extrusion and/or some degree of accompanying hemorrhage. There does continue to be CSF around the cord at these levels. 3. Air within the epidural space and the prevertebral soft tissues likely from disruption of the C3-4 disc. 4. The cervical spine could be further evaluated with an MRI examination with and without contrast. The above information was relayed to Dr. Portillo by telephone. MD Isabel Huntley VTE Risk Assessment Isabel VTE Risk Assessment: Mod/High Risk (score >= 2) Caprini Risk Assessment Model Point Value = 1 Point Value = 2 Point Value = 3 Point Value = 5 Age 41-60 Minor surgery BMI > 25 kg/m2 Swollen legs Varicose veins or History of unexplained or recurrent spontaneous Oral contraceptives or hormone replacement Sepsis (< 1 month) Serious lung disease, including pneumonia (< 1 month) Abnormal pulmonary function Acute myocardial infarction Congestive heart failure (< 1 month) History of inflammatory bowel disease Medical patient at bed rest Age 61-74 Arthroscopic surgery Major open surgery (> 45 min) Laparoscopic surgery (> 45 min) Malignancy Confined to bed (> 72 hours) Immobilizing plaster cast Central venous access Age >= 75 History of VTE Family history of VTE Factor V Leiden Prothrombin [id number] Lupus anticoagulant Anticardiolipin antibodies Elevated serum homocysteine Heparin-induced thrombocytopenia Other congenital or acquired thrombophilia Stroke (< 1 month) Elective arthroplasty Hip, pelvis, or leg fracture Acute spinal cord injury (< 1 month) Prophylaxis Regimen Total Risk Factor Score Risk Level Prophylaxis Regimen 0-1 Low Early ambulation 2 Moderate Order ONE of the following: *Sequential Compression Device (SCD) *Heparin 5000 units SQ BID 3-4 Higher Order ONE of the following medications: *Heparin 5000 units SQ TID *Enoxaparin/Lovenox 40 mg SQ daily (WT < 150 kg, CrCl > 30 mL/min) *Enoxaparin/Lovenox 30 mg SQ daily (WT < 150 kg, CrCl > 10-29 mL/min) *Enoxaparin/Lovenox 30 mg SQ BID (WT < 150 kg, CrCl > 30 mL/min) AND/OR *Sequential Compression Device (SCD) 5 or more Highest Order ONE of the following medications: *Heparin 5000 units SQ TID (Preferred with Epidurals) *Enoxaparin/Lovenox 40 mg SQ daily (WT < 150 kg, CrCl > 30 mL/min) *Enoxaparin/Lovenox 30 mg SQ daily (WT < 150 kg, CrCl > 10-29 mL/min) *Enoxaparin/Lovenox 30 mg SQ BID (WT < 150 kg, CrCl > 30 mL/min) AND *Sequential Compression Device (SCD) Assessment and Plan Problem List: (1) Bilateral pneumonia ICD Code: J18.9 - Pneumonia, unspecified organism (2) Hypoxemia ICD Code: R09.02 - Hypoxemia Status: Acute Assessment and Plan 56 y/o female undergoing detoxification at [facility] who presented to ED on 07/09/17 for evaluation of hypoxemia: Bilateral pneumonia - Levaquin 750 mg IV - Duonebulizers q6h and q2h PRN shortness of breath/wheezing - physical therapy to prevent further debility Recent Fall with abnormal CT of cervical spine - CT shows a focal lucent lesion at the anterior inferior aspect of the C3 vertebral body and a right lateral recess disc protrusion with epidural mass like effect. - MRI with and without contrast of spine due to abnormality noted on CT scan of spine. Alcohol Abuse - CIWA protocol - Librium 10 mg QID p.o. - CM consultation - should return to [facility] on discharge Hypokalemia - K+ 3.2 on admission - replace potassium - recheck bmp and replace potassium as needed DVT prophylaxis - SCDs/TEDs . This note was transcribed by [email or web address] [Ana Velez]. I, Dr. Leigha Rosales personally performed the history, physical exam, and medical decision making; and confirmed the accuracy of the information in the transcribed note. Authenticated by Dr. Leigha Rosales on07/10/17 at 04:45. Discussed Condition With ER physician, patient, and RN Physician Certification 2 Midnight Certification Type: Admission for Inpatient Services Order for Inpatient Services The services are ordered in accordance with Medicare regulations or non- Medicare payer requirements, as applicable. In the case of services not specified as inpatient-only, they are appropriately provided as inpatient services in accordance with the 2-midnight benchmark. Estimated LOS (days): 3 days is the estimated time the patient will need to remain in the hospital, assuming treatment plan goals are met and no additional complications. Post-Hospital Plan: Not yet determined Ana Velez Jul 10, 2017 04:45 Leigha Rosales MD Jul 16, 2017 23:17
[2017-07-10] MEDS: LEVOFLOXACIN 750 MG PREMIX INJ 150 ML IV SCH (05:12)
[2017-07-10 08:50] LABS: AUTOMATED NEUTROPHIL # 9.1 TH/MM3 (1.8-7.7); EOSINOPHIL # 0.1 TH/MM3 (0-0.4); EOSINOPHIL % 0.9 % (0.0-4.0); HEMATOCRIT 37.3 % (35.0-46.0); HEMO FLAGS DIFF FINAL; LYMPH % 1.9 % (9.0-44.0); LYMPHOCYTE # 0.2 TH/MM3 (1.0-4.8); MEAN CELL VOLUME 107.7 FL (80.0-100.0); MEAN CORPUSCULAR HEMOGLOBIN 37.1 PG (27.0-34.0); MEAN CORPUSCULAR HGB CONC 34.4 % (32.0-36.0); MONO % 5.2 % (0.0-8.0); PLATELET COUNT 146 TH/MM3 (150-450); RED BLOOD COUNT 3.46 MIL/MM3 (4.00-5.30); RED CELL DISTRIBUTION WIDTH 14.6 % (11.6-17.2); WHITE BLOOD COUNT 9.9 TH/MM3 (4.0-11.0)
[2017-07-10 09:00] LABS: BICARBONATE 25.4 MEQ/L (21.0-32.0); POTASSIUM 3.4 MEQ/L (3.5-5.1)
[2017-07-10] MEDS: FOLIC ACID 1 MG TAB PO SCH (09:59)
[2017-07-10] MEDS: THIAMINE HCL 100 MG TAB PO SCH (09:59)
[2017-07-10] MEDS: MULTIVITAMINS/MINERALS THERAPEUTIC TAB PO SCH (09:59)
[2017-07-10] MEDS: SODIUM CHLORIDE 0.9% FLUSH 10 ML FLUSH IV FLUSH SCH ×2 (09:59→20:18)
--- NOTE | 2017-07-10 10:02 | EKG ---
Date Performed: 07/10/2017 Time Performed: 02:51:25 PTAGE: 56 years EKG: Sinus rhythm ABNORMAL ECG NO PREVIOUS TRACING DOCTOR: Philippe Sandy Interpretating Date/Time 07/10/2017 10:01:38
--- NOTE | 2017-07-10 10:17 | EKG ---
Date Performed: 07/09/2017 Time Performed: 21:07:40 PTAGE: 56 years EKG: Sinus rhythm WITH SHORT OH INTERVAL INCOMPLETE RIGHT BUNDLE BRANCH BLOCK ABNORMAL ECG NO PREVIOUS TRACING DOCTOR: Philippe Sandy Interpretating Date/Time 07/10/2017 10:17:03
[2017-07-10] MEDS ORDERED: GADODIAMIDE PF 287 MG/ML 10 ML VIAL (for RAD MRI) IVCONTRAST ONE (17:03)
--- NOTE | 2017-07-10 17:38 | RADRPT ---
EXAM DATE/TIME: 07/10/2017 16:30 [facility] COMPARISON: CT CERVICAL SPINE W/O CONTRAST, July 09, 2017, 20:45. INDICATIONS : Trauma. Fall. Neck pain for 3 weeks. CONTRAST: 8 cc Omniscan (gadodiamide) IV MEDICAL HISTORY : Seizures. Hepatitis C. Carcinoma, esophageal. COPD. SURGICAL HISTORY : Hysterectomy. Cholecystectomy. Left wrist. Throat cancer removed. ENCOUNTER: Subsequent ACUITY: 2 day PAIN SCORE: 7/10 LOCATION: neck. TECHNIQUE: Multiplanar, multisequence MRI examination of the cervical spine was performed. FINDINGS: VERTEBRAE: Moderate presumed reactive signal changes and enhancement involving the C3 and C4 vertebra. ALIGNMENT: No evidence of subluxation. CORD: Normal configuration and signal. POST FOSSA: The cerebellar tonsils are normal in position. POST-CONTRAST: See above C2-C3: The thecal sac has a normal configuration. There is no evidence of disc herniation or spinal canal stenosis. The neural foramina are patent bilaterally. C3-C4: Very large right paracentral disc herniation obliterating the right lateral recess and neural foramen . C4-C5: The thecal sac has a normal configuration. There is no evidence of disc herniation or spinal canal s tenosis. The neural foramina are patent bilaterally. C5-C6: Minimal central disc protrusion slightly indenting thecal sac. Canal and foramina satisfactory. C6-C7: The thecal sac has a normal configuration. There is no evidence of disc herniation or spinal canal s tenosis. The neural foramina are patent bilaterally. C7-T1: The thecal sac has a normal configuration. There is no evidence of disc herniation or spinal canal s tenosis. The neural foramina are patent bilaterally. CONCLUSION: Very large right paracentral disc herniation at C3-4 obliterating the right lateral recess and neural foramen Kristian Avery MD on July 10, 2017 at 17:29 Board Certified Radiologist. This report was verified electronically.
--- NOTE | 2017-07-10 18:36 | HHI.PR ---
Addendum to Inpatient Note Addendum Reason: Additional Documentation Additional Information Nursing reports no acute deterioration since admission, patient still needing oxygen. Patient tolerated by mouth intake well. Patient seen, lying in bed, unlabored breathing, watching television. Vital signs stable, afebrile. Amol Reed MD Jul 10, 2017 18:36
[2017-07-11] VITALS (8 sets, daily range): BP systolic 102–131; BP diastolic 60–79; PULSE 75–85; RESP 16–20; TEMP 97.9–98.2; O2SAT 95–99
[2017-07-11] MEDS: LEVOFLOXACIN 750 MG PREMIX INJ 150 ML IV SCH (06:12)
[2017-07-11 08:18] LABS: ALT (GPT) 22 U/L (10-53); ANION GAP 10 MEQ/L (5-15); AST (GOT) 56 U/L (15-37); BICARBONATE 27.5 MEQ/L (21.0-32.0); BLOOD UREA NITROGEN 10 MG/DL (7-18); CHLORIDE 100 MEQ/L (98-107); GLOMERULAR FILTRATION RATE 143 ML/MIN (>89); SODIUM (NA) 137 MEQ/L (136-145)
[2017-07-11 08:19] LABS: ALKALINE PHOSPHATASE 122 U/L (45-117); TOTAL BILIRUBIN ADULT 0.6 MG/DL (0.2-1.0)
[2017-07-11] MEDS: THIAMINE HCL 100 MG TAB PO SCH (08:46)
[2017-07-11] MEDS: FOLIC ACID 1 MG TAB PO SCH (08:47)
[2017-07-11] MEDS: SODIUM CHLORIDE 0.9% FLUSH 10 ML FLUSH IV FLUSH SCH ×2 (08:47→22:20)
[2017-07-11] MEDS: MULTIVITAMINS/MINERALS THERAPEUTIC TAB PO SCH (08:47)
--- NOTE | 2017-07-11 15:53 | HHI.PR ---
Subjective Remarks The patient was with her mother. She said that she had a lot of pain that was generalized. The patient's mother was concerned that the patient never gets follow-up as an outpatient secondary to insurance problems. The patient says she was getting to the level of nearly being a bad alcoholic. Objective Vitals Vital Signs Date Time Temp Pulse Resp B/P (MAP) Pulse Ox O2 Delivery O2 Flow Rate FiO2 07/11/17 11:34 98.1 75 18 119/73 (88) 99 07/11/17 07:40 98.2 80 20 110/60 (77) 96 07/11/17 04:00 98.0 81 20 102/60 (74) 95 07/11/17 00:00 98.0 81 20 125/64 (84) 98 07/10/17 16:10 70 I/O 07/10/17 07/10/17 07/10/17 07/11/17 07/11/17 07/11/17 06:59 14:59 22:59 06:59 14:59 22:59 Intake Total 500 ml 700 ml 220 ml Output Total 600 ml Balance 500 ml 700 ml -380 ml Intake Oral 700 ml 220 ml IV Total 500 ml Output Urine Total 600 ml # Voids 5 3 # Bowel Movements 0 0 Result Diagram: 07/10/17 0759 07/11/17 0614 Imaging Last Impressions Cervical Spine MRI 07/10/17 0000 Signed Impressions: Service Date/Time: Monday, July 10, 2017 16:30 - CONCLUSION: Very large right paracentral disc herniation at C3-4 obliterating the right lateral recess and neural foramen Kristian Avery MD Head CT 07/09/171950 Signed Impressions: Service Date/Time: Sunday, July 09, 2017 20:45 - CONCLUSION: No acute disease. Kirstian Fierro MD Chest X-Ray 07/09/171950 Signed Impressions: Service Date/Time: Sunday, July 09, 2017 20:04 - CONCLUSION: 1. Volume loss in the right chest. 2. Prominence of the hilar regions. 3. The prominent hilar regions and the volume loss at the right chest could be further evaluated with a CT examination ideally with contrast if there is no contraindication. Kristian Fierro MD Cervical Spine CT 07/09/17 0000 Signed Impressions: Service Date/Time: Sunday, July 09, 2017 20:45 - CONCLUSION: 1. Focal lucent lesion at the anterior-inferior aspect of the C3 vertebral body. Much of the anterior cortex over this region is missing. There is some fragmentation at the anterior-inferior cortex which may represent some minimal fracturing of the anterior-inferior aspect of the C3 vertebral body at the margin of this lucent mass. The remaining aspect of the C3 vertebral body is intact. 2. Right lateral recess mild disc protrusion at the C3-C4 level. There does appear to be increased soft tissue density in the anterior right lateral epidural space at this region and extending to the C2-3 level. This could be secondary to some degree of superior extrusion and/or some degree of accompanying hemorrhage. There does continue to be CSF around the cord at these levels. 3. Air within the epidural space and the prevertebral soft tissues likely from disruption of the C3-4 disc. 4. The cervical spine could be further evaluated with an MRI examination with and without contrast. The above information was relayed to Dr. Portillo by telephone. Kristian Fierro MD CT Angiography 07/09/17 0000 Signed Impressions: Service Date/Time: Sunday, July 09, 2017 23:22 - CONCLUSION: 1. No pulmonary embolus. 2. Suspected pulmonary artery hypertension. 3. Mild to moderate emphysema. 4. Patchy bilateral infiltrate including bilateral nodular areas which are most likely infectious or inflammatory. Followup noncontrast chest CT is recommended in approximately 3 months. The nonspecific mildly enlarged right hilar lymph node should be rechecked at that time as well. 5. Tiny pericardial effusion. Kristian Abraham MD Objective Remarks GENERAL: This is a thin, chronically ill-appearing patient, in no apparent distress, appearing much older than stated age. SKIN: No rashes. Cool and dry. Multiple ecchymotic areas noted on upper extremities. HEAD: Atraumatic. Normocephalic. EYES: No scleral icterus. No injection or drainage. ENT: Nose without bleeding, purulent drainage. Uvula midline. Hypophonia. NECK: Trachea midline. No JVD. CARDIOVASCULAR: Regular rate and rhythm without murmurs, gallops, or rubs. RESPIRATORY: Decreased breath sounds. GASTROINTESTINAL: Abdomen soft, non-tender, nondistended. No guarding. MUSCULOSKELETAL: Extremities without clubbing, cyanosis, or edema. NEUROLOGICAL: Awake and alert. Motor and sensory grossly within normal limits. Normal speech. PSYCH: Flattened affect. Medications and IVs Current Medications Medications (Trade) Dose Ordered Sig/Valentine Route Start Time Stop Time Status Last Admin (NS Flush) 2 ml UNSCH PRN IV FLUSH 07/09/17 22:15 (NS Flush) 2 ml BID IV FLUSH 07/10/17 09:00 07/11/17 08:47 (Narcan Inj) 0.4 mg UNSCH PRN IV PUSH 07/09/17 22:15 (Folate) 1 mg DAILY PO 07/10/17 09:00 07/15/17 08:59 07/11/17 08:47 (Vitamin B1) 100 mg DAILY PO 07/10/17 09:00 07/11/17 08:46 (Theragran M Tab) 1 tab DAILY PO 07/10/17 09:00 07/15/17 08:59 07/11/17 08:47 (Romazicon Inj) 0.2 mg Q1M PRN IV PUSH 07/10/17 01:00 (Ativan) 1 mg Q4H PRN PO 07/10/17 01:00 (Ativan Inj) 1 mg Q4H PRN IV PUSH 07/10/17 01:00 (Ativan) 2 mg Q2H PRN PO 07/10/17 01:00 (Ativan Inj) 2 mg Q2H PRN IV PUSH 07/10/17 01:00 (Ativan Inj) 2 mg Q1H PRN IV PUSH 07/10/17 01:00 (Ativan Inj) 2 mg Q15M PRN IV PUSH 07/10/17 01:00 Levofloxacin/ Dextrose 150 ml @ 100 mls/hr Q24H IV 07/10/17 05:00 07/11/17 06:12 (Librium) 10 mg QID PO 07/10/17 09:00 07/11/17 13:09 (Roxicodone) 5 mg Q4H PRN PO 07/11/17 14:00 07/11/17 14:11 A/P Problem List: (1) Bilateral pneumonia ICD Code: J18.9 - Pneumonia, unspecified organism (2) Hypoxemia ICD Code: R09.02 - Hypoxemia Status: Acute Assessment and Plan 56 y/o female undergoing detoxification at [facility] who presented to ED on 07/09/17 for evaluation of hypoxemia: Bilateral pneumonia/ UTI Breathing well at this time. No pain on urination. - Levaquin 750 mg IV. - Duonebulizers q6h and q2h PRN shortness of breath/wheezing. - physical therapy to prevent further debility. - follow urine culture. Recent Fall with abnormal CT of cervical spine CT shows a focal lucent lesion at the anterior inferior aspect of the C3 vertebral body and a right lateral recess disc protrusion with epidural mass like effect. MRI with severe C3-C4 herniation. - neurosurgery consult requested. - PT/ OT. Alcohol Abuse The pt was at [facility] prior to hospitalization. - [facility] protocol - Librium scheduled. - CM consultation - should return to [facility] on discharge. Hypokalemia Persistent. - replace potassium. - recheck bmp and replace potassium as needed. Check mag and phos too. DVT prophylaxis - Nadeem/Aroldo Christopher DO Jul 11, 2017 15:53
[2017-07-11] MEDS ORDERED: POTASSIUM CHLORIDE 25 MEQ EFFERVESCENT TAB PO ONE (16:00)
[2017-07-12] VITALS (9 sets, daily range): BP systolic 108–144; BP diastolic 60–71; PULSE 75–97; RESP 16–20; TEMP 97.9–99.6; O2SAT 94–99
[2017-07-12] MEDS: LEVOFLOXACIN 750 MG PREMIX INJ 150 ML IV SCH (05:54)
[2017-07-12] MEDS: SODIUM CHLORIDE 0.9% FLUSH 10 ML FLUSH IV FLUSH SCH ×2 (08:51→21:30)
[2017-07-12] MEDS: MULTIVITAMINS/MINERALS THERAPEUTIC TAB PO SCH (08:51)
[2017-07-12] MEDS: FOLIC ACID 1 MG TAB PO SCH (08:51)
[2017-07-12] MEDS: THIAMINE HCL 100 MG TAB PO SCH (08:51)
[2017-07-12 11:01] LABS: MEAN CELL VOLUME 106.2 FL (80.0-100.0); MEAN CORPUSCULAR HEMOGLOBIN 36.7 PG (27.0-34.0); MEAN CORPUSCULAR HGB CONC 34.6 % (32.0-36.0); PLATELET COUNT 141 TH/MM3 (150-450); RED CELL DISTRIBUTION WIDTH 14.4 % (11.6-17.2); WHITE BLOOD COUNT 9.4 TH/MM3 (4.0-11.0)
[2017-07-12 11:02] LABS: REVIEW FLAG FINAL
[2017-07-12 11:18] LABS: BICARBONATE 25.3 MEQ/L (21.0-32.0); MAGNESIUM 1.4 MG/DL (1.5-2.5); POTASSIUM 3.9 MEQ/L (3.5-5.1)
--- NOTE | 2017-07-12 14:46 | MB ---
cc: ISABELLA GUY MD DATE OF CONSULTATION: 07/12/2017. REASON FOR CONSULTATION: Cervical disk protrusion. HISTORY OF PRESENT ILLNESS: This is a 56-year-old female who was admitted on 07/09/2017 after she presented to the emergency room with shortness of breath progressively worsening along with productive cough which she has had the past two months. She has also admitted to the [facility] for alcohol abuse rehabilitation. She admits to drinking vodka heavily on a daily basis. She has chronic hoarseness from vocal cord surgery and radiation therapy to her neck and vocal cords with cancer diagnosed over ten years ago. She also complains of headache and neck pain which is chronic for the last several years. She does have a history of COPD. Denies any numbness, paresthesias in the upper or lower extremities or incontinence. PAST MEDICAL HISTORY: 1. Vocal cord cancer status post surgery and radiation therapy. 2. COPD. 3. Alcohol abuse currently in rehabilitation. 4. Tobacco abuse. 5. Cholecystectomy. 6. Bladder fistula repair. 7. Partial hysterectomy. ALLERGIES: PENICILLIN. MEDICATIONS PRIOR TO ADMISSION: 1. Clonidine. 2. Vistaril. 3. Ativan. SOCIAL HISTORY: She admits to smoking half a pack of cigarettes a day. She was drinking heavily prior to admission to the [facility]. Denies any illicit drug use. REVIEW OF SYSTEMS: Positive for neck pain. Positive for headache. Positive for productive cough and congestion. Positive for dyspnea though denies chest pain. Positive nausea. No abdominal pain or diarrhea or dysuria. Denies any focal weakness or numbness in the upper or lower extremities and just complains of generalized weakness. No skin rash or history of easy bleeding or bruising or fevers or chills. All other systems are negative. FAMILY HISTORY: Unremarkable for any cancer or coronary artery disease. LABORATORY FINDINGS: White blood cell count is 9.9, hemoglobin 12.8, platelet count is 146,000. PT 12, INR 1.1, PTT 31.7. Sodium 137, potassium 3.0, BUN 10, creatinine 0.5, glucose 86. Urinalysis is positive for urinary tract infection. PHYSICAL EXAMINATION: VITAL SIGNS: Temperature 98, pulse is 84, rest rate 16, blood pressure 130/79, oxygen saturations 97% on 2 liters nasal cannula. GENERAL: She has an overall very cachectic appearance. HEAD: Normocephalic, atraumatic. NECK: Neck is supple with no guarding or rigidity. CHEST: Clear bilaterally. HEART: Regular rate rhythm, normal without murmurs. ABDOMEN: Soft, nontender. No guarding or rigidity. EXTREMITIES: No cyanosis, edema or tenderness. NEUROLOGICAL EXAMINATION: She is awake, alert. Cranial nerves grossly intact. She is very hoarse which is chronic. Overall she moves upper and lower extremities with good strength and normal sensation. No Heydi's or Babinski. Speech is fluent. RADIOGRAPHY: Head CT scan is negative. CT of the cervical spine reveals small lucent abnormality in the right side at the C3 vertebral body, although no fracture is noted. MRI scan of the cervical spine reviewed shows a hypodensity involving the C3 and C4 vertebral bodies with some enhancement with contrast likely reflecting radiation changes. The disc space does not enhance with contrast and there is a disc protrusion at C3-4 on the right side but no spinal cord compression with some foraminal stenosis noted. No prevertebral soft tissue swelling is noted. IMPRESSION: 1. C3-4 disc protrusion without any spinal cord compression with changes in the vertebral body likely reflective of radiation effect. 2. Pneumonia / COPD with productive cough and dyspnea. Unfortunately the patient continues to smoke. 3. Alcohol abuse, currently in rehabilitation. PLAN: The patient does not require any neurosurgical intervention for the C3 and C4 disk protrusion as it does not appear to be symptomatic. There is no cord compression noted. Unfortunately given her vocal cord surgery and radiation to this area, any surgical intervention would also be fraught with significant complications. In any case at this point, no intervention is recommended and continued rehabilitation and treatment of her pneumonia / urinary tract infection. She has been instructed on alcohol and smoking cessation. MD SOHAM Avalos/YOSVANY /2:13 PM /2:25 PM SUZI
[2017-07-12] MEDS: MAGNESIUM SULFATE 1 GM PREMIX 100 ML IV SCH ×2 (14:51→16:11)
--- NOTE | 2017-07-12 17:23 | HHI.PR ---
Subjective Remarks The pt said she feels weak. She said that she has had some loose stools. She wants to go back home with her mother when she leaves the hospital. Objective Vitals Vital Signs Date Time Temp Pulse Resp B/P (MAP) Pulse Ox O2 Delivery O2 Flow Rate FiO2 07/12/17 16:12 97.9 88 20 144/64 (90) 97 07/12/17 12:18 98.2 80 18 120/60 (80) 95 07/12/17 08:36 98.2 90 20 119/64 (82) 96 07/12/17 08:00 88 07/12/17 04:21 99.6 90 18 122/67 (85) 94 07/12/17 00:09 99.6 94 18 123/71 (88) 95 07/12/17 00:05 98.0 75 18 108/66 (80) 99 07/11/17 19:46 97.9 85 18 131/66 (87) 98 I/O 07/11/17 07/11/17 07/11/17 07/12/17 07/12/17 07/12/17 07:00 15:00 23:00 07:00 15:00 23:00 Intake Total 220 ml 50 ml 200 ml 100 ml Output Total 600 ml Balance -380 ml 50 ml 200 ml 100 ml Intake Oral 220 ml 50 ml 200 ml IV Total 100 ml Output Urine Total 600 ml # Voids 3 # Bowel Movements 0 Result Diagram: 07/12/17 1013 07/12/17 1013 Imaging Last Impressions Cervical Spine MRI 07/10/17 0000 Signed Impressions: Service Date/Time: Monday, July 10, 2017 16:30 - CONCLUSION: Very large right paracentral disc herniation at C3-4 obliterating the right lateral recess and neural foramen Kristian Avery MD Head CT 07/09/171950 Signed Impressions: Service Date/Time: Sunday, July 09, 2017 20:45 - CONCLUSION: No acute disease. Kristian Fierro MD Chest X-Ray 07/09/171950 Signed Impressions: Service Date/Time: Sunday, July 09, 2017 20:04 - CONCLUSION: 1. Volume loss in the right chest. 2. Prominence of the hilar regions. 3. The prominent hilar regions and the volume loss at the right chest could be further evaluated with a CT examination ideally with contrast if there is no contraindication. Kristian Fierro MD Cervical Spine CT 07/09/17 0000 Signed Impressions: Service Date/Time: Sunday, July 09, 2017 20:45 - CONCLUSION: 1. Focal lucent lesion at the anterior-inferior aspect of the C3 vertebral body. Much of the anterior cortex over this region is missing. There is some fragmentation at the anterior-inferior cortex which may represent some minimal fracturing of the anterior-inferior aspect of the C3 vertebral body at the margin of this lucent mass. The remaining aspect of the C3 vertebral body is intact. 2. Right lateral recess mild disc protrusion at the C3-C4 level. There does appear to be increased soft tissue density in the anterior right lateral epidural space at this region and extending to the C2-3 level. This could be secondary to some degree of superior extrusion and/or some degree of accompanying hemorrhage. There does continue to be CSF around the cord at these levels. 3. Air within the epidural space and the prevertebral soft tissues likely from disruption of the C3-4 disc. 4. The cervical spine could be further evaluated with an MRI examination with and without contrast. The above information was relayed to Dr. Portillo by telephone. Kristian Fierro MD CT Angiography 07/09/17 0000 Signed Impressions: Service Date/Time: Sunday, July 09, 2017 23:22 - CONCLUSION: 1. No pulmonary embolus. 2. Suspected pulmonary artery hypertension. 3. Mild to moderate emphysema. 4. Patchy bilateral infiltrate including bilateral nodular areas which are most likely infectious or inflammatory. Followup noncontrast chest CT is recommended in approximately 3 months. The nonspecific mildly enlarged right hilar lymph node should be rechecked at that time as well. 5. Tiny pericardial effusion. Kristian Abraham MD Objective Remarks GENERAL: This is a thin, chronically ill-appearing patient, in no apparent distress, appearing much older than stated age. SKIN: No rashes. Cool and dry. Multiple ecchymotic areas noted on upper extremities. HEAD: Atraumatic. Normocephalic. EYES: No scleral icterus. No injection or drainage. ENT: Nose without bleeding, purulent drainage. Uvula midline. Hypophonia. NECK: Trachea midline. No JVD. CARDIOVASCULAR: Regular rate and rhythm without murmurs, gallops, or rubs. RESPIRATORY: Decreased breath sounds. GASTROINTESTINAL: Abdomen soft, non-tender, nondistended. No guarding. MUSCULOSKELETAL: Extremities without clubbing, cyanosis, or edema. NEUROLOGICAL: Awake and alert. Motor and sensory grossly within normal limits. Normal speech. PSYCH: Flattened affect. Medications and IVs Current Medications Medications (Trade) Dose Ordered Sig/Valentine Route Start Time Stop Time Status Last Admin (NS Flush) 2 ml UNSCH PRN IV FLUSH 07/09/17 22:15 (NS Flush) 2 ml BID IV FLUSH 07/10/17 09:00 07/12/17 08:51 (Narcan Inj) 0.4 mg UNSCH PRN IV PUSH 07/09/17 22:15 (Folate) 1 mg DAILY PO 07/10/17 09:00 07/15/17 08:59 07/12/17 08:51 (Vitamin B1) 100 mg DAILY PO 07/10/17 09:00 07/12/17 08:51 (Theragran M Tab) 1 tab DAILY PO 07/10/17 09:00 07/15/17 08:59 07/12/17 08:51 (Romazicon Inj) 0.2 mg Q1M PRN IV PUSH 07/10/17 01:00 (Ativan) 1 mg Q4H PRN PO 07/10/17 01:00 (Ativan Inj) 1 mg Q4H PRN IV PUSH 07/10/17 01:00 (Ativan) 2 mg Q2H PRN PO 07/10/17 01:00 (Ativan Inj) 2 mg Q2H PRN IV PUSH 07/10/17 01:00 (Ativan Inj) 2 mg Q1H PRN IV PUSH 07/10/17 01:00 (Ativan Inj) 2 mg Q15M PRN IV PUSH 07/10/17 01:00 Levofloxacin/ Dextrose 150 ml @ 100 mls/hr Q24H IV 07/10/17 05:00 07/12/17 05:54 (Librium) 10 mg QID PO 07/10/17 09:00 07/12/17 13:28 (Roxicodone) 5 mg Q4H PRN PO 07/11/17 14:00 07/12/17 16:13 A/P Problem List: (1) Bilateral pneumonia ICD Code: J18.9 - Pneumonia, unspecified organism (2) Hypoxemia ICD Code: R09.02 - Hypoxemia Status: Acute Assessment and Plan 56 y/o female undergoing detoxification at [facility] who presented to ED on 07/09/17 for evaluation of hypoxemia: Bilateral pneumonia/ UTI Breathing well at this time. No pain on urination. - Levaquin 750 mg IV. - Duonebulizers q6h and q2h PRN shortness of breath/wheezing. - physical therapy to prevent further debility. - follow urine culture. Growing pseudomonas and E coli. Recent Fall with abnormal CT of cervical spine CT shows a focal lucent lesion at the anterior inferior aspect of the C3 vertebral body and a right lateral recess disc protrusion with epidural mass like effect. MRI with severe C3-C4 herniation. - neurosurgery consult appreciated. No intervention needed at this time. - PT/ OT. Alcohol Abuse The pt was at [facility] prior to hospitalization. - [facility] protocol - Librium scheduled. - CM consultation - should return to [facility] on discharge. Hypokalemia/ Hypomagnesemia Improving. - recheck bmp and replace as needed. DVT prophylaxis - SCDs/TEDs Discharge Planning Anticipate 1-2 more days Aroldo Villasenor DO Jul 12, 2017 17:23
[2017-07-13 03:17] VITALS: BP 119/66; PULSE 87; RESP 17; TEMP 99.2; O2SAT 97
[2017-07-13] MEDS: LEVOFLOXACIN 750 MG PREMIX INJ 150 ML IV SCH (04:50)
[2017-07-13 07:21] LABS: BICARBONATE 27.4 MEQ/L (21.0-32.0); MAGNESIUM 1.7 MG/DL (1.5-2.5)
[2017-07-13] MEDS: THIAMINE HCL 100 MG TAB PO SCH (08:03)
[2017-07-13] MEDS: FOLIC ACID 1 MG TAB PO SCH (08:03)
[2017-07-13] MEDS: SODIUM CHLORIDE 0.9% FLUSH 10 ML FLUSH IV FLUSH SCH ×2 (08:03→21:00)
[2017-07-13] MEDS: MULTIVITAMINS/MINERALS THERAPEUTIC TAB PO SCH (08:03)
[2017-07-13 08:15] VITALS: PULSE 94
[2017-07-13 08:52] VITALS: BP 120/60; PULSE 68; RESP 20; TEMP 96.8; O2SAT 96
[2017-07-13 12:09] VITALS: BP 120/60; PULSE 68; RESP 18; TEMP 97.8; O2SAT 95
--- NOTE | 2017-07-13 14:55 | PD.ID.CON ---
History of Present Illness Service ID Consult Requested By Reason for Consult Evaluation and Mment of UTI and Pneumonia. Primary Care Physician No Primary Care Physician Diagnoses: History of Present Illness is a 56 y/o CF with hx ETOH abuse, vocal cord ca s/p radiation who presented from [facility] with hypoxemia. She says she was smoking too much, getting drunk and falling down. After being at the center for 2 days she stood up and got dizzy. She was found to have bilat PNA. She has had difficulty swallowing for 11 years. She c/o of intermittent bolus sensation, regurgitation, and odynophagia. Has with liquids and solids. Never had EGD. Had colonoscopy 4-5 years ago in [facility], says findings were polyps. ID was consulted for evaluation and Mment of Bilateral Pneumonia, UTI. Review of Systems ROS Limitations: Poor Historian Past Family Social History Allergies: Coded Allergies: penicillin G (Verified Allergy, Severe, hives, 07/09/17) Past Medical History COPD - not on home oxygen Valvular heart disease - when she was in her 20's treated with antibiotics by Dr. Mullins per patient; never treated surgically Cancer of vocal cord s/p radiation Past Surgical History Hysterectomy Cholecystectomy Bladder fistula surgery Left wrist fracture repair Left humerus fracture repair Reported Medications I attest I obtained, reviewed or updated home meds and current meds(name, dose, freq and route of meds) Reported Meds & Active Scripts Active Reported Clonidine (Clonidine HCl) 0.1 Mg Tab 0.1 Mg PO Q3HR PRN Vistaril (Hydroxyzine Pamoate) 25 Mg Cap 25 Mg PO Q6H PRN Ativan (Lorazepam) 0.5 Mg Tab 0.5 Mg PO Q6H PRN Active Ordered Medications Current Medications Medications (Trade) Dose Ordered Sig/Valentine Route Start Time Stop Time Status Last Admin (NS Flush) 2 ml UNSCH PRN IV FLUSH 07/09/17 22:15 (NS Flush) 2 ml BID IV FLUSH 07/10/17 09:00 07/13/17 08:03 (Narcan Inj) 0.4 mg UNSCH PRN IV PUSH 07/09/17 22:15 (Folate) 1 mg DAILY PO 07/10/17 09:00 07/15/17 08:59 07/13/17 08:03 (Vitamin B1) 100 mg DAILY PO 07/10/17 09:00 07/13/17 08:03 (Theragran M Tab) 1 tab DAILY PO 07/10/17 09:00 07/15/17 08:59 07/13/17 08:03 (Romazicon Inj) 0.2 mg Q1M PRN IV PUSH 07/10/17 01:00 (Ativan) 1 mg Q4H PRN PO 07/10/17 01:00 (Ativan Inj) 1 mg Q4H PRN IV PUSH 07/10/17 01:00 (Ativan) 2 mg Q2H PRN PO 07/10/17 01:00 (Ativan Inj) 2 mg Q2H PRN IV PUSH 07/10/17 01:00 (Ativan Inj) 2 mg Q1H PRN IV PUSH 07/10/17 01:00 (Ativan Inj) 2 mg Q15M PRN IV PUSH 07/10/17 01:00 Levofloxacin/ Dextrose 150 ml @ 100 mls/hr Q24H IV 07/10/17 05:00 07/13/17 04:50 (Roxicodone) 5 mg Q4H PRN PO 07/11/17 14:00 07/13/17 14:53 Potassium Chloride/Sodium Chloride 1,000 ml @ 100 mls/hr Q10H IV 07/13/17 16:00 07/13/17 16:22 (Motrin) 800 mg Q8H PRN PO 07/13/17 16:15 (Librium) 10 mg BID PO 07/13/17 21:00 (Lovenox Inj) 30 mg Q24H SQ 07/13/17 18:00 07/13/17 17:49 Family History reviewed and NC to current ID problems. Social History Alcoholism. Has been to [facility] and was admitted from there. No illicit drugs. Physical Exam Vital Signs Vital Signs Date Time Temp Pulse Resp B/P (MAP) Pulse Ox O2 Delivery O2 Flow Rate FiO2 07/13/17 12:09 97.8 68 18 120/60 (80) 95 07/13/17 08:52 96.8 68 20 120/60 (80) 96 07/13/17 08:15 94 07/13/17 03:17 99.2 87 17 119/66 (83) 97 07/12/17 23:30 98.9 94 16 120/65 (83) 97 07/12/17 19:53 99.3 97 17 109/70 (83) 96 07/12/17 16:12 97.9 88 20 144/64 (90) 97 Physical Exam GENERAL: Thin built poorly-nourished, well-developed patient, in no apparent distress. SKIN: No rashes, ecchymoses or lesions. Cool and dry. HEAD: Atraumatic. Normocephalic. No temporal or scalp tenderness. EYES: Pupils equal round and reactive. Extraocular motions intact. No scleral icterus. No injection or drainage. ENT: Nose without bleeding, purulent drainage or septal hematoma. Throat without erythema, tonsillar hypertrophy or exudate. Uvula midline. Airway patent. NECK: Trachea midline. Supple, nontender, no meningeal signs. CARDIOVASCULAR: Regular rate and rhythm without murmurs, gallops, or rubs. RESPIRATORY: Clear to auscultation. Breath sounds equal bilaterally. No wheezes , rales, or rhonchi. GASTROINTESTINAL: Abdomen soft, non-tender, nondistended. MUSCULOSKELETAL: Extremities without clubbing, cyanosis, or edema. No joint tenderness, effusion, or edema noted. No calf tenderness. Negative Homans sign bilaterally. NEUROLOGICAL: Awake and alert. Cranial nerves II through XII intact. Motor and sensory grossly within normal limits. Five out of 5 muscle strength in all muscle groups. Normal speech. Psych: anxious, cursing at times. IV line sites with no e.o infection. Laboratory Laboratory Tests Test 07/13/17 05:55 Blood Urea Nitrogen 4 Creatinine 0.32 Random Glucose 119 Calcium Level 8.2 Magnesium Level 1.7 Sodium Level 128 Potassium Level 3.0 Chloride Level 93 Carbon Dioxide Level 27.4 Anion Gap 8 Estimat Glomerular Filtration Rate 212 Date/Time Source Procedure Growth Status 07/09/17 20:40 Blood Peripheral Aerobic Blood Culture - Preliminary NO GROWTH IN 4 DAYS Resulted 07/09/17 20:40 Blood Peripheral Anaerobic Blood Culture - Preliminary NO GROWTH IN 4 DAYS Resulted 07/09/17 20:40 Urine Random Urine Urine Culture - Final Escherichia Coli Pseudomonas Aeruginosa Complete Result Diagram: 07/12/17 1013 07/13/17 0555 Imaging Last Impressions Cervical Spine MRI 07/10/17 0000 Signed Impressions: Service Date/Time: Monday, July 10, 2017 16:30 - CONCLUSION: Very large right paracentral disc herniation at C3-4 obliterating the right lateral recess and neural foramen Kristian Avery MD Head CT 07/09/171950 Signed Impressions: Service Date/Time: Sunday, July 09, 2017 20:45 - CONCLUSION: No acute disease. Kristian Fierro MD Chest X-Ray 07/09/171950 Signed Impressions: Service Date/Time: Sunday, July 09, 2017 20:04 - CONCLUSION: 1. Volume loss in the right chest. 2. Prominence of the hilar regions. 3. The prominent hilar regions and the volume loss at the right chest could be further evaluated with a CT examination ideally with contrast if there is no contraindication. Kristian Fierro MD Cervical Spine CT 07/09/17 0000 Signed Impressions: Service Date/Time: Sunday, July 09, 2017 20:45 - CONCLUSION: 1. Focal lucent lesion at the anterior-inferior aspect of the C3 vertebral body. Much of the anterior cortex over this region is missing. There is some fragmentation at the anterior-inferior cortex which may represent some minimal fracturing of the anterior-inferior aspect of the C3 vertebral body at the margin of this lucent mass. The remaining aspect of the C3 vertebral body is intact. 2. Right lateral recess mild disc protrusion at the C3-C4 level. There does appear to be increased soft tissue density in the anterior right lateral epidural space at this region and extending to the C2-3 level. This could be secondary to some degree of superior extrusion and/or some degree of accompanying hemorrhage. There does continue to be CSF around the cord at these levels. 3. Air within the epidural space and the prevertebral soft tissues likely from disruption of the C3-4 disc. 4. The cervical spine could be further evaluated with an MRI examination with and without contrast. The above information was relayed to Dr. Portillo by telephone. Kristian Fierro MD CT Angiography 07/09/17 0000 Signed Impressions: Service Date/Time: Sunday, July 09, 2017 23:22 - CONCLUSION: 1. No pulmonary embolus. 2. Suspected pulmonary artery hypertension. 3. Mild to moderate emphysema. 4. Patchy bilateral infiltrate including bilateral nodular areas which are most likely infectious or inflammatory. Followup noncontrast chest CT is recommended in approximately 3 months. The nonspecific mildly enlarged right hilar lymph node should be rechecked at that time as well. 5. Tiny pericardial effusion. Kristian Abraham MD Assessment and Plan Assessment and Plan Aspiration Pneumonia E.coli PSAE UTI vs colonization Alcoholism Weight loss Dysphagia Prior Head neck cancer s/p radiation C3-4 large disc herniation Depression Recs: Continue Levaquin IV GI consult (Dysphagia evaluation) Psych consult (Depression, Alcoholism) d/w patients Mom: She was very concerned about pts depression, anorexia and dysphagia. Dolores Devlin MD Jul 13, 2017 14:55
[2017-07-13] MEDS ORDERED: IBUPROFEN 800 MG TAB PO PRN (16:15)
[2017-07-13] MEDS ORDERED: IBUPROFEN 800 MG TAB PO ONE (16:15)
[2017-07-13] MEDS ORDERED: POTASSIUM CHLORIDE 25 MEQ EFFERVESCENT TAB PO ONE (16:15)
[2017-07-13 16:16] VITALS: BP 122/60; PULSE 68; RESP 20; TEMP 98.2; O2SAT 96
--- NOTE | 2017-07-13 16:21 | HHI.PR ---
Subjective Remarks The patient said that she had a headache. She said her breathing was okay but sometimes worse depending on positioning. She said she has been trying to eat. She said her mom brought her some food. Discussed with nursing. Objective Vitals Vital Signs Date Time Temp Pulse Resp B/P (MAP) Pulse Ox O2 Delivery O2 Flow Rate FiO2 07/13/17 12:09 97.8 68 18 120/60 (80) 95 07/13/17 08:52 96.8 68 20 120/60 (80) 96 07/13/17 08:15 94 07/13/17 03:17 99.2 87 17 119/66 (83) 97 07/12/17 23:30 98.9 94 16 120/65 (83) 97 07/12/17 19:53 99.3 97 17 109/70 (83) 96 I/O 07/12/17 07/12/17 07/12/17 07/13/17 07/13/17 07/13/17 06:59 14:59 22:59 06:59 14:59 22:59 Intake Total 200 ml 1150 ml 240 ml Output Total 1100 ml Balance 200 ml 50 ml 240 ml Intake Oral 200 ml 750 ml 240 ml IV Total 400 ml Output Urine Total 1100 ml # Voids 1 2 Result Diagram: 07/12/17 1013 07/13/17 0555 Imaging Last Impressions Cervical Spine MRI 07/10/17 0000 Signed Impressions: Service Date/Time: Monday, July 10, 2017 16:30 - CONCLUSION: Very large right paracentral disc herniation at C3-4 obliterating the right lateral recess and neural foramen Kristian Avery MD Head CT 07/09/171950 Signed Impressions: Service Date/Time: Sunday, July 09, 2017 20:45 - CONCLUSION: No acute disease. Kristian Fierro MD Chest X-Ray 07/09/171950 Signed Impressions: Service Date/Time: Sunday, July 09, 2017 20:04 - CONCLUSION: 1. Volume loss in the right chest. 2. Prominence of the hilar regions. 3. The prominent hilar regions and the volume loss at the right chest could be further evaluated with a CT examination ideally with contrast if there is no contraindication. Kristian Fierro MD Cervical Spine CT 07/09/17 0000 Signed Impressions: Service Date/Time: Sunday, July 09, 2017 20:45 - CONCLUSION: 1. Focal lucent lesion at the anterior-inferior aspect of the C3 vertebral body. Much of the anterior cortex over this region is missing. There is some fragmentation at the anterior-inferior cortex which may represent some minimal fracturing of the anterior-inferior aspect of the C3 vertebral body at the margin of this lucent mass. The remaining aspect of the C3 vertebral body is intact. 2. Right lateral recess mild disc protrusion at the C3-C4 level. There does appear to be increased soft tissue density in the anterior right lateral epidural space at this region and extending to the C2-3 level. This could be secondary to some degree of superior extrusion and/or some degree of accompanying hemorrhage. There does continue to be CSF around the cord at these levels. 3. Air within the epidural space and the prevertebral soft tissues likely from disruption of the C3-4 disc. 4. The cervical spine could be further evaluated with an MRI examination with and without contrast. The above information was relayed to Dr. Portillo by telephone. Kristian Fierro MD CT Angiography 07/09/17 0000 Signed Impressions: Service Date/Time: Sunday, July 09, 2017 23:22 - CONCLUSION: 1. No pulmonary embolus. 2. Suspected pulmonary artery hypertension. 3. Mild to moderate emphysema. 4. Patchy bilateral infiltrate including bilateral nodular areas which are most likely infectious or inflammatory. Followup noncontrast chest CT is recommended in approximately 3 months. The nonspecific mildly enlarged right hilar lymph node should be rechecked at that time as well. 5. Tiny pericardial effusion. Kristian Abraham MD Objective Remarks GENERAL: This is a thin, chronically ill-appearing patient, in no apparent distress, appearing much older than stated age. SKIN: No rashes. Cool and dry. Multiple ecchymotic areas noted on upper extremities. HEAD: Atraumatic. Normocephalic. EYES: No scleral icterus. No injection or drainage. ENT: Nose without bleeding, purulent drainage. Uvula midline. Hypophonia. NECK: Trachea midline. No JVD. Tender to palpation. CARDIOVASCULAR: Regular rate and rhythm without murmurs, gallops, or rubs. RESPIRATORY: Decreased breath sounds. GASTROINTESTINAL: Abdomen soft, non-tender, nondistended. No guarding. MUSCULOSKELETAL: Extremities without clubbing, cyanosis, or edema. NEUROLOGICAL: Awake and alert. Motor and sensory grossly within normal limits. Normal speech. PSYCH: Flattened affect. Medications and IVs Current Medications Medications (Trade) Dose Ordered Sig/Valentine Route Start Time Stop Time Status Last Admin (NS Flush) 2 ml UNSCH PRN IV FLUSH 07/09/17 22:15 (NS Flush) 2 ml BID IV FLUSH 07/10/17 09:00 07/13/17 08:03 (Narcan Inj) 0.4 mg UNSCH PRN IV PUSH 07/09/17 22:15 (Folate) 1 mg DAILY PO 07/10/17 09:00 07/15/17 08:59 07/13/17 08:03 (Vitamin B1) 100 mg DAILY PO 07/10/17 09:00 07/13/17 08:03 (Theragran M Tab) 1 tab DAILY PO 07/10/17 09:00 07/15/17 08:59 07/13/17 08:03 (Romazicon Inj) 0.2 mg Q1M PRN IV PUSH 07/10/17 01:00 (Ativan) 1 mg Q4H PRN PO 07/10/17 01:00 (Ativan Inj) 1 mg Q4H PRN IV PUSH 07/10/17 01:00 (Ativan) 2 mg Q2H PRN PO 07/10/17 01:00 (Ativan Inj) 2 mg Q2H PRN IV PUSH 07/10/17 01:00 (Ativan Inj) 2 mg Q1H PRN IV PUSH 07/10/17 01:00 (Ativan Inj) 2 mg Q15M PRN IV PUSH 07/10/17 01:00 Levofloxacin/ Dextrose 150 ml @ 100 mls/hr Q24H IV 07/10/17 05:00 07/13/17 04:50 (Librium) 10 mg QID PO 07/10/17 09:00 07/13/17 13:07 (Roxicodone) 5 mg Q4H PRN PO 07/11/17 14:00 07/13/17 14:53 Potassium Chloride/Sodium Chloride 1,000 ml @ 100 mls/hr Q10H IV 07/13/17 16:00 (K-Lyte Cl Eff) 25 meq ONCE ONCE PO 07/13/17 16:15 07/13/17 16:16 UNV A/P Problem List: (1) Bilateral pneumonia ICD Code: J18.9 - Pneumonia, unspecified organism (2) Hypoxemia ICD Code: R09.02 - Hypoxemia Status: Acute Assessment and Plan 56 y/o female undergoing detoxification at [facility] who presented to ED on 07/09/17 for evaluation of hypoxemia: Bilateral pneumonia/ UTI Breathing well at this time. No pain on urination. - Levaquin 750 mg IV. - Duonebulizers q6h and q2h PRN shortness of breath/wheezing. - physical therapy to prevent further debility. - follow urine culture. Growing pseudomonas and E coli. ID consult requested. Recent Fall with abnormal CT of cervical spine CT shows a focal lucent lesion at the anterior inferior aspect of the C3 vertebral body and a right lateral recess disc protrusion with epidural mass like effect. MRI with severe C3-C4 herniation. - neurosurgery consult appreciated. No intervention needed at this time. - PT/ OT. - Ibuprofen started for pain control. Alcohol Abuse The pt was at [facility] prior to hospitalization. - CIWA protocol - Librium scheduled. Wean to 10 mg BID. - CM consultation. Hypokalemia/ Hyponatremia/ Hypomagnesemia Potassium and sodium still low. - IVFs with KCl started. PO supplementation also ordered. - recheck bmp and replace as needed. Dysphagia/ Hoarse voice S/t history of vocal cord cancer. - GI eval pending. PPx: Lovenox Discharge Planning Awaiting clinical improvement Aroldo Villasenor DO Jul 13, 2017 16:21
[2017-07-13] MEDS: NS + KCL 40 MEQ INJ 1,000 ML IV SCH (16:22)
--- NOTE | 2017-07-13 16:22 | PD.CONS ---
HPI History of Present Illness This is a 56 year old female with hx ETOH abuse, vocal cord ca s/p radiation who presented from [facility] with hypoxemia. She says she was smoking too much, getting drunk and falling down. AFter being at the center for 2 days she stook up and got dizzy. She was found to have bilat PNA. GI has been consulted for dysphagia. She has had difficulty swallowing for 11 years. SHe c/o of intermittent bolus sensation, regurgitation, and odynophagia. Has with liquids and solids. Never had EGD. Had colonoscopy 4-5 years ago in [facility], says findings were polyps. (Kristin Lino) PFSH Past Medical History COPD - not on home oxygen Valvular heart disease - when she was in her 20's treated with antibiotics by Dr. Mullins per patient; never treated surgically Cancer of vocal cord s/p radiation Denies hypertension, diabetes mellitus, CAD, CHF, COPD, liver or kidney problems , blood clots in legs or lungs, CVA, seizures . Past Surgical History Hysterectomy Cholecystectomy Bladder fistula surgery Left wrist fracture repair Left humerus fracture repair . (Kristin Lino) Coded Allergies: penicillin G (Verified Allergy, Severe, hives, 07/09/17) Family History Denies any family history of cancers, heart disease . Social History Tobacco: smokes 1 PPD Alcohol: excessive alcohol intake; "I drink a lot" Illicit Drugs: former IVDA . (Kristin Lino) Review of Systems Constitutional: COMPLAINS OF: Fever Respiratory: COMPLAINS OF: Cough Cardiovascular: DENIES: Chest pain Gastrointestinal: COMPLAINS OF: Difficulty Swallowing, Odynophagia, DENIES: Abdominal pain, Black stools, Bloody stools, Nausea, Vomiting Genitourinary: DENIES: Hematuria Musculoskeletal: DENIES: Joint Swelling Neurologic: COMPLAINS OF: Abnormal gait Psychiatric: DENIES: Agitation (Kristin Lino) GI Exam Vitals I&O Vital Signs Date Time Temp Pulse Resp B/P (MAP) Pulse Ox O2 Delivery O2 Flow Rate FiO2 07/13/17 12:09 97.8 68 18 120/60 (80) 95 07/13/17 08:52 96.8 68 20 120/60 (80) 96 07/13/17 08:15 94 07/13/17 03:17 99.2 87 17 119/66 (83) 97 07/12/17 23:30 98.9 94 16 120/65 (83) 97 07/12/17 19:53 99.3 97 17 109/70 (83) 96 I/O 07/12/17 07/12/17 07/12/17 07/13/17 07/13/17 07/13/17 07:00 15:00 23:00 07:00 15:00 23:00 Intake Total 200 ml 1150 ml 240 ml Output Total 1100 ml Balance 200 ml 50 ml 240 ml Intake Oral 200 ml 750 ml 240 ml IV Total 400 ml Output Urine Total 1100 ml # Voids 1 2 Laboratory Test 07/13/17 05:55 Blood Urea Nitrogen 4 MG/DL Creatinine 0.32 MG/DL Random Glucose 119 MG/DL Calcium Level 8.2 MG/DL Magnesium Level 1.7 MG/DL Sodium Level 128 MEQ/L Potassium Level 3.0 MEQ/L Chloride Level 93 MEQ/L Carbon Dioxide Level 27.4 MEQ/L Anion Gap 8 MEQ/L Estimat Glomerular Filtration Rate 212 ML/MIN Date/Time Source Procedure Growth Status 07/09/17 20:40 Blood Peripheral Aerobic Blood Culture - Preliminary NO GROWTH IN 4 DAYS Resulted 07/09/17 20:40 Blood Peripheral Anaerobic Blood Culture - Preliminary NO GROWTH IN 4 DAYS Resulted 07/13/17 15:30 Nasal Aspirate Influenza Types A,B Antigen (RL) - Final NEGATIVE FOR FLU A AND B ANTIGEN.... Complete 07/09/17 20:40 Urine Random Urine Urine Culture - Final Escherichia Coli Pseudomonas Aeruginosa Complete Physical Examination HEENT: PERRL; normocephalic; atraumatic; no jaundice. CHEST: diminished CARDIAC: RRR ABDOMEN: Soft, nondistended, nontender; no hepatosplenomegaly; bowel sounds are present in all four quadrants. EXTREMITIES: No clubbing, cyanosis, or edema. SKIN: Normal; no rash; no jaundice. FLAME CHANNELER: No focal deficits; alert and oriented times three. (Kristin Lino) Assessment and Plan Plan ASSESSMENT - dysphagia - intermittent bolus sensation, odynophagia, regurgitation foods solid and liquid for 11 years, hx vocal chord ca s/p radiation - bilat PNA, ID following PLAN - EGD inpt vs outpt when respiratory status improved - [facility] - supportive care This pt seen by [facility] and Dr Holder and this note is written on her behalf (Kristin Lino) Physician Comments seen, examined agree with above we will ask speech pathology to see her ba swallow depending on the reslts we will discuss about egd/dilatation states she lost a lot of weight over the years, does not recall having endoscopy , but she had colonoscopy 5 years ago (Mary Ann Holder MD) Kristin Lino Jul 13, 2017 16:22 Mary Ann Holder MD Jul 13, 2017 17:17
[2017-07-13] MEDS: ENOXAPARIN SODIUM 30 MG/0.3 ML SYRINGE SQ SCH (17:49)
[2017-07-13 20:31] VITALS: BP 92/45; PULSE 85; RESP 18; TEMP 98.2
[2017-07-14] VITALS (8 sets, daily range): BP systolic 95–124; BP diastolic 48–86; PULSE 80–100; RESP 16–22; TEMP 97.4–98.7; O2SAT 86–99
[2017-07-14] MEDS: NS + KCL 40 MEQ INJ 1,000 ML IV SCH (02:00)
[2017-07-14] MEDS: LEVOFLOXACIN 750 MG PREMIX INJ 150 ML IV SCH (04:13)
[2017-07-14] MEDS: MULTIVITAMINS/MINERALS THERAPEUTIC TAB PO SCH (08:31)
[2017-07-14] MEDS: THIAMINE HCL 100 MG TAB PO SCH (08:31)
[2017-07-14] MEDS: FOLIC ACID 1 MG TAB PO SCH (08:31)
[2017-07-14] MEDS: SODIUM CHLORIDE 0.9% FLUSH 10 ML FLUSH IV FLUSH SCH ×2 (08:33→22:32)
[2017-07-14 08:38] LABS: HEMATOCRIT 40.7 % (35.0-46.0); MEAN CELL VOLUME 108.1 FL (80.0-100.0); MEAN CORPUSCULAR HEMOGLOBIN 36.9 PG (27.0-34.0); MEAN CORPUSCULAR HGB CONC 34.2 % (32.0-36.0); PLATELET COUNT 246 TH/MM3 (150-450); RED BLOOD COUNT 3.77 MIL/MM3 (4.00-5.30); RED CELL DISTRIBUTION WIDTH 14.5 % (11.6-17.2); REVIEW FLAG FINAL; WHITE BLOOD COUNT 13.1 TH/MM3 (4.0-11.0)
[2017-07-14 09:12] LABS: BICARBONATE 25.5 MEQ/L (21.0-32.0); MAGNESIUM 1.8 MG/DL (1.5-2.5); POTASSIUM 4.6 MEQ/L (3.5-5.1)
--- NOTE | 2017-07-14 12:46 | RADRPT ---
EXAM DATE/TIME: 07/14/2017 11:58 [facility] COMPARISON: CHEST SINGLE AP, July 09, 2017, 20:04. INDICATIONS : Difficulty swallowing FLUORO TIME: 1.4 minutes IMAGE COUNT: 10 CONTRAST: 1. Liquid E-Z Paque Barium Sulfate (60% w/v, 41% w.w) MEDICAL HISTORY : Seizures. Hepatitis C. Carcinoma, esophageal. COPD SURGICAL HISTORY : Hysterectomy. Cholecystectomy. Left wrist. Throat cancer removed. ENCOUNTER: Initial ACUITY: 1 day PAIN SCORE: 0/10 LOCATION: esophagram FINDINGS: The patient was able to consume thin barium through a straw. The examination had to be performed with the patient lying down on or side due to or overall debilitated condition. There was prompt transit of barium from the oral pharynx into the esophagus. The examination demonstr ated penetration of barium into the airway with coating of the posterior aspect of the epiglottis but no definite aspiration into the airway. The mucosal contours of the esophagus were unremarkable by single contrast examination. The GE junction was unremarkable. CONCLUSION: 1. There was penetration of barium into the airway with coating of the inferior aspect of the epiglot tis but no definite aspiration. Rehabilitation swallow service would be indicated for further assessm ent. 2. No findings to indicate esophageal obstruction were identified. Silvestre Sumner MD on July 14, 2017 at 12:42 Board Certified Radiologist. This report was verified electronically.
--- NOTE | 2017-07-14 14:36 | HHI.PR ---
Subjective Remarks The patient endorsed weakness. She said she was afraid to stand with physical therapy. She said she was trying to eat a little bit. She had some pot roast. She has had a cough. Discussed with nursing. Objective Vitals Vital Signs Date Time Temp Pulse Resp B/P (MAP) Pulse Ox O2 Delivery O2 Flow Rate FiO2 07/14/17 12:00 100 07/14/17 12:00 98.6 98 22 109/86 (94) 99 07/14/17 08:00 98.4 92 18 95/63 (74) 98 07/14/17 06:10 98 07/14/17 06:02 98.2 80 20 86 07/14/17 00:56 98.2 86 18 99/48 (65) 92 07/13/17 20:31 98.2 85 18 92/45 (61) 07/13/17 16:16 98.2 68 20 122/60 (80) 96 I/O 07/13/17 07/13/17 07/13/17 07/14/17 07/14/17 07/14/17 07:00 15:00 23:00 07:00 15:00 23:00 Intake Total 240 ml Output Total 600 ml Balance 240 ml -600 ml Intake Oral 240 ml Output Urine Total 600 ml # Voids 2 Result Diagram: 07/14/17 0752 07/14/17 0752 Imaging Last Impressions Barium Swallow X-Ray 07/14/17 0000 Signed Impressions: Service Date/Time: Friday, July 14, 2017 11:58 - CONCLUSION: 1. There was penetration of barium into the airway with coating of the inferior aspect of the epiglottis but no definite aspiration. Rehabilitation swallow service would be indicated for further assessment. 2. No findings to indicate esophageal obstruction were identified. Silvestre Sumner MD Cervical Spine MRI 07/10/17 0000 Signed Impressions: Service Date/Time: Monday, July 10, 2017 16:30 - CONCLUSION: Very large right paracentral disc herniation at C3-4 obliterating the right lateral recess and neural foramen Kristian Avery MD Head CT 07/09/171950 Signed Impressions: Service Date/Time: Sunday, July 09, 2017 20:45 - CONCLUSION: No acute disease. Kristian Fierro MD Chest X-Ray 07/09/171950 Signed Impressions: Service Date/Time: Sunday, July 09, 2017 20:04 - CONCLUSION: 1. Volume loss in the right chest. 2. Prominence of the hilar regions. 3. The prominent hilar regions and the volume loss at the right chest could be further evaluated with a CT examination ideally with contrast if there is no contraindication. Kristian Fierro MD Cervical Spine CT 07/09/17 0000 Signed Impressions: Service Date/Time: Sunday, July 09, 2017 20:45 - CONCLUSION: 1. Focal lucent lesion at the anterior-inferior aspect of the C3 vertebral body. Much of the anterior cortex over this region is missing. There is some fragmentation at the anterior-inferior cortex which may represent some minimal fracturing of the anterior-inferior aspect of the C3 vertebral body at the margin of this lucent mass. The remaining aspect of the C3 vertebral body is intact. 2. Right lateral recess mild disc protrusion at the C3-C4 level. There does appear to be increased soft tissue density in the anterior right lateral epidural space at this region and extending to the C2-3 level. This could be secondary to some degree of superior extrusion and/or some degree of accompanying hemorrhage. There does continue to be CSF around the cord at these levels. 3. Air within the epidural space and the prevertebral soft tissues likely from disruption of the C3-4 disc. 4. The cervical spine could be further evaluated with an MRI examination with and without contrast. The above information was relayed to Dr. Portillo by telephone. Kristian Fierro MD CT Angiography 07/09/17 0000 Signed Impressions: Service Date/Time: Sunday, July 09, 2017 23:22 - CONCLUSION: 1. No pulmonary embolus. 2. Suspected pulmonary artery hypertension. 3. Mild to moderate emphysema. 4. Patchy bilateral infiltrate including bilateral nodular areas which are most likely infectious or inflammatory. Followup noncontrast chest CT is recommended in approximately 3 months. The nonspecific mildly enlarged right hilar lymph node should be rechecked at that time as well. 5. Tiny pericardial effusion. Kristian Abraham MD Objective Remarks GENERAL: This is a thin, chronically ill-appearing patient, in no apparent distress, appearing much older than stated age. SKIN: No rashes. Cool and dry. Multiple ecchymotic areas noted on upper extremities. HEAD: Atraumatic. Normocephalic. EYES: No scleral icterus. No injection or drainage. ENT: Nose without bleeding, purulent drainage. Uvula midline. Hypophonia. NECK: Trachea midline. No JVD. Tender to palpation. CARDIOVASCULAR: Regular rate and rhythm without murmurs, gallops, or rubs. RESPIRATORY: Decreased breath sounds. Bilateral wheezing. GASTROINTESTINAL: Abdomen soft, non-tender, nondistended. No guarding. MUSCULOSKELETAL: Extremities without clubbing, cyanosis, or edema. NEUROLOGICAL: Awake and alert. Motor and sensory grossly within normal limits. Normal speech. PSYCH: Flattened affect. Medications and IVs Current Medications Medications (Trade) Dose Ordered Sig/Valentine Route Start Time Stop Time Status Last Admin (NS Flush) 2 ml UNSCH PRN IV FLUSH 07/09/17 22:15 (NS Flush) 2 ml BID IV FLUSH 07/10/17 09:00 07/13/17 08:03 (Narcan Inj) 0.4 mg UNSCH PRN IV PUSH 07/09/17 22:15 (Folate) 1 mg DAILY PO 07/10/17 09:00 07/15/17 08:59 07/14/17 08:31 (Vitamin B1) 100 mg DAILY PO 07/10/17 09:00 07/14/17 08:31 (Theragran M Tab) 1 tab DAILY PO 07/10/17 09:00 07/15/17 08:59 07/14/17 08:31 (Romazicon Inj) 0.2 mg Q1M PRN IV PUSH 07/10/17 01:00 (Ativan) 1 mg Q4H PRN PO 07/10/17 01:00 (Ativan Inj) 1 mg Q4H PRN IV PUSH 07/10/17 01:00 (Ativan) 2 mg Q2H PRN PO 07/10/17 01:00 (Ativan Inj) 2 mg Q2H PRN IV PUSH 07/10/17 01:00 (Ativan Inj) 2 mg Q1H PRN IV PUSH 07/10/17 01:00 (Ativan Inj) 2 mg Q15M PRN IV PUSH 07/10/17 01:00 Levofloxacin/ Dextrose 150 ml @ 100 mls/hr Q24H IV 07/10/17 05:00 07/14/17 04:13 (Roxicodone) 5 mg Q4H PRN PO 07/11/17 14:00 07/14/17 13:19 (Motrin) 800 mg Q8H PRN PO 07/13/17 16:15 (Librium) 10 mg BID PO 07/13/17 21:00 07/14/17 08:31 (Lovenox Inj) 30 mg Q24H SQ 07/13/17 18:00 07/13/17 17:49 A/P Problem List: (1) Bilateral pneumonia ICD Code: J18.9 - Pneumonia, unspecified organism (2) Hypoxemia ICD Code: R09.02 - Hypoxemia Status: Acute Assessment and Plan 56 y/o female undergoing detoxification at [facility] who presented to ED on 07/09/17 for evaluation of hypoxemia: Bilateral pneumonia/ UTI Has wheezing on exam. No pain on urination. - Levaquin 750 mg IV. - Duonebulizers q6h and q2h PRN shortness of breath/wheezing. - Solumedrol 40 IV q 8 hours. - PT/ OT to prevent further debility. ST following. - follow urine culture. Growing pseudomonas and E coli. ID consult appreciated. Recent Fall with abnormal CT of cervical spine CT shows a focal lucent lesion at the anterior inferior aspect of the C3 vertebral body and a right lateral recess disc protrusion with epidural mass like effect. MRI with severe C3-C4 herniation. - neurosurgery consult appreciated. No intervention needed at this time. - PT/ OT. - Ibuprofen started for pain control. Alcohol Abuse The pt was at [facility] prior to hospitalization. - CISD protocol - Librium scheduled. Wean to 10 mg BID. - CM consultation. Hypokalemia/ Hyponatremia/ Hypomagnesemia Potassium and sodium still low. - IVFs with KCl started. PO supplementation also ordered. D/c fluids. - recheck bmp and replace as needed. Dysphagia/ Hoarse voice S/t history of vocal cord cancer. - GI eval appreciated. Barium study noted. - ST. PPx: Lovenox Discharge Planning Awaiting clinical improvement Aroldo Villasenor DO Jul 14, 2017 14:36
[2017-07-14] MEDS: RESP: ALBUTEROL 2.5 MG/IPRATROPIUM 0.5 MG NEB (SCH) NEB (14:45)
[2017-07-14] MEDS ORDERED: RESP: ALBUTEROL 2.5 MG/IPRATROPIUM 0.5 MG NEB (PRN) NEB (14:45)
--- NOTE | 2017-07-14 14:45 | HHI.GIFU ---
Subjective Remarks Patient is sitting up in bed, cont. to have difficulty swallowing, hoarse voice. (Allison Robbins) Objective Vitals I&O Vital Signs Date Time Temp Pulse Resp B/P (MAP) Pulse Ox O2 Delivery O2 Flow Rate FiO2 07/14/17 12:00 100 07/14/17 12:00 98.6 98 22 109/86 (94) 99 07/14/17 08:00 98.4 92 18 95/63 (74) 98 07/14/17 06:10 98 07/14/17 06:02 98.2 80 20 86 07/14/17 00:56 98.2 86 18 99/48 (65) 92 07/13/17 20:31 98.2 85 18 92/45 (61) 07/13/17 16:16 98.2 68 20 122/60 (80) 96 I/O 07/13/17 07/13/17 07/13/17 07/14/17 07/14/17 07/14/17 07:00 15:00 23:00 07:00 15:00 23:00 Intake Total 240 ml Output Total 600 ml Balance 240 ml -600 ml Intake Oral 240 ml Output Urine Total 600 ml # Voids 2 Laboratory Laboratory Tests Test 07/14/17 07:52 White Blood Count 13.1 Red Blood Count 3.77 Hemoglobin 13.9 Hematocrit 40.7 Mean Corpuscular Volume 108.1 Mean Corpuscular Hemoglobin 36.9 Mean Corpuscular Hemoglobin Concent 34.2 Red Cell Distribution Width 14.5 Platelet Count 246 Mean Platelet Volume 8.5 Blood Urea Nitrogen 5 Creatinine 0.35 Random Glucose 82 Calcium Level 8.7 Magnesium Level 1.8 Sodium Level 132 Potassium Level 4.6 Chloride Level 99 Carbon Dioxide Level 25.5 Anion Gap 8 Estimat Glomerular Filtration Rate 191 Date/Time Source Procedure Growth Status 07/09/17 20:40 Blood Peripheral Aerobic Blood Culture - Final NO GROWTH IN 5 DAYS Complete 07/09/17 20:40 Blood Peripheral Anaerobic Blood Culture - Final NO GROWTH IN 5 DAYS Complete 07/13/17 15:30 Nasal Aspirate Influenza Types A,B Antigen (RL) - Final NEGATIVE FOR FLU A AND B ANTIGEN.... Complete 07/09/17 20:40 Urine Random Urine Urine Culture - Final Escherichia Coli Pseudomonas Aeruginosa Complete Imaging Last Impressions Barium Swallow X-Ray 07/14/17 Signed Impressions: Service Date/Time: Friday, July 14, 2017 11:58 - CONCLUSION: 1. There was penetration of barium into the airway with coating of the inferior aspect of the epiglottis but no definite aspiration. Rehabilitation swallow service would be indicated for further assessment. 2. No findings to indicate esophageal obstruction were identified. Silvestre Sumner MD Cervical Spine MRI 07/10/17 Signed Impressions: Service Date/Time: Monday, July 10, 2017 16:30 - CONCLUSION: Very large right paracentral disc herniation at C3-4 obliterating the right lateral recess and neural foramen Kristian Avery MD Head CT 07/09/171950 Signed Impressions: Service Date/Time: Sunday, July 09, 2017 20:45 - CONCLUSION: No acute disease. Kristian Fierro MD Chest X-Ray 07/09/171950 Signed Impressions: Service Date/Time: Sunday, July 09, 2017 20:04 - CONCLUSION: 1. Volume loss in the right chest. 2. Prominence of the hilar regions. 3. The prominent hilar regions and the volume loss at the right chest could be further evaluated with a CT examination ideally with contrast if there is no contraindication. Kristian Fierro MD Cervical Spine CT 07/09/17 Signed Impressions: Service Date/Time: Sunday, July 09, 2017 20:45 - CONCLUSION: 1. Focal lucent lesion at the anterior-inferior aspect of the C3 vertebral body. Much of the anterior cortex over this region is missing. There is some fragmentation at the anterior-inferior cortex which may represent some minimal fracturing of the anterior-inferior aspect of the C3 vertebral body at the margin of this lucent mass. The remaining aspect of the C3 vertebral body is intact. 2. Right lateral recess mild disc protrusion at the C3-C4 level. There does appear to be increased soft tissue density in the anterior right lateral epidural space at this region and extending to the C2-3 level. This could be secondary to some degree of superior extrusion and/or some degree of accompanying hemorrhage. There does continue to be CSF around the cord at these levels. 3. Air within the epidural space and the prevertebral soft tissues likely from disruption of the C3-4 disc. 4. The cervical spine could be further evaluated with an MRI examination with and without contrast. The above information was relayed to Dr. Portillo by telephone. Kristian Fierro MD CT Angiography 07/09/17 0000 Signed Impressions: Service Date/Time: Sunday, July 09, 2017 23:22 - CONCLUSION: 1. No pulmonary embolus. 2. Suspected pulmonary artery hypertension. 3. Mild to moderate emphysema. 4. Patchy bilateral infiltrate including bilateral nodular areas which are most likely infectious or inflammatory. Followup noncontrast chest CT is recommended in approximately 3 months. The nonspecific mildly enlarged right hilar lymph node should be rechecked at that time as well. 5. Tiny pericardial effusion. Kristian Abraham MD Physical Exam HEENT: normocephalic; atraumatic; no jaundice. Throat is clear. CHEST: Bilateral wheezing CARDIAC: Regular rate and rhythm with no murmur gallop or rubs. ABDOMEN: Soft, nondistended, nontender; no hepatosplenomegaly; bowel sounds are present in all four quadrants. EXTREMITIES: No clubbing, cyanosis, or edema. SKIN: Normal; no rash; no jaundice. RISK MANAGEMENT DIRECTOR: No focal deficits; alert and oriented times three. (Allison Robbins) Assessment and Plan Plan ASSESSMENT - dysphagia - intermittent bolus sensation, odynophagia, regurgitation foods solid and liquid for 11 years, hx vocal chord ca s/p radiation S/P ST eval who recommended mech. soft and thin liquids. Barium swallow ( 07/14)---> penetration of barium into the airway with coating the inferior aspect of the epiglottis but no definite aspiration. No evidence of esophageal obstruction - bilat PNA, ID following, abx, PLAN - Mech. soft and thin liquids per ST recommendation - Cont. ST - EGD/dill one medically cleared and respiratory status has improved - supportive care This pt seen by myself and Dr Holder and this note is written on her behalf (Allison Robbins) Allison Robbins Jul 14, 2017 14:45 Mary Ann Holder MD Jul 14, 2017 19:37
--- NOTE | 2017-07-14 16:33 | PD.PSY.CON ---
Provisional Diagnosis Admission Date Jul 10, 2017 at 01:36 [place] I. Adjustment disorder with depressed mood History of Present Illness Service Psychiatry Consult Requested By Attending physician Reason for Consult Depression and anorexia. Primary Care Physician No Primary Care Physician Review of Systems Except as stated in HPI: all other systems reviewed are Neg Past Family Social History Coded Allergies: penicillin G (Verified Allergy, Severe, hives, 07/09/17) Reported Medications Clonidine (Clonidine) 0.1 Mg Tab, 0.1 MG PO Q3HR Y for Blood Pressure Management , #60 TAB 0 Refills 07/09/17 Hydroxyzine Pamoate (Vistaril) 25 Mg Cap, 25 MG PO Q6H Y for NAUSEA, CAP 0 Refills 07/09/17 Lorazepam (Ativan) 0.5 Mg Tab, 0.5 MG PO Q6H Y for ANXIETY AND/OR AGITATION, TAB 0 Refills 07/09/17 Current Medications Medications (Trade) Dose Ordered Sig/Valentine Route Start Time Stop Time Status Last Admin (NS Flush) 2 ml UNSCH PRN IV FLUSH 07/09/17 22:15 (NS Flush) 2 ml BID IV FLUSH 07/10/17 09:00 07/13/17 08:03 (Narcan Inj) 0.4 mg UNSCH PRN IV PUSH 07/09/17 22:15 (Folate) 1 mg DAILY PO 07/10/17 09:00 07/15/17 08:59 07/14/17 08:31 (Vitamin B1) 100 mg DAILY PO 07/10/17 09:00 07/14/17 08:31 (Theragran M Tab) 1 tab DAILY PO 07/10/17 09:00 07/15/17 08:59 07/14/17 08:31 (Romazicon Inj) 0.2 mg Q1M PRN IV PUSH 07/10/17 01:00 (Ativan) 1 mg Q4H PRN PO 07/10/17 01:00 (Ativan Inj) 1 mg Q4H PRN IV PUSH 07/10/17 01:00 (Ativan) 2 mg Q2H PRN PO 07/10/17 01:00 (Ativan Inj) 2 mg Q2H PRN IV PUSH 07/10/17 01:00 (Ativan Inj) 2 mg Q1H PRN IV PUSH 07/10/17 01:00 (Ativan Inj) 2 mg Q15M PRN IV PUSH 07/10/17 01:00 Levofloxacin/ Dextrose 150 ml @ 100 mls/hr Q24H IV 07/10/17 05:00 07/14/17 04:13 (Roxicodone) 5 mg Q4H PRN PO 07/11/17 14:00 07/14/17 13:19 (Motrin) 800 mg Q8H PRN PO 07/13/17 16:15 (Librium) 10 mg BID PO 07/13/17 21:00 07/14/17 08:31 (Lovenox Inj) 30 mg Q24H SQ 07/13/17 18:00 07/13/17 17:49 (Duoneb Neb) 1 ampule Q2HR NEB PRN NEB 07/14/17 14:45 (Duoneb Neb) 1 ampule Q6HR WHILE AWAKE NEB NEB 07/14/17 14:45 (SoluMEDROL INJ) 40 mg Q8HR IV PUSH 07/14/17 14:45 Family Psych History Significant for depression and alcoholism. Social History Multiyear history of alcoholism. Not currently employed. Does not have history of drug abuse. Limited family support. Patient's Strengths (min. 2) Verbal and has access to healthcare. Physical Exam Vital Signs Vital Signs Date Time Temp Pulse Resp B/P (MAP) Pulse Ox O2 Delivery O2 Flow Rate FiO2 07/14/17 16:16 99 Nasal Cannula 3.00 07/14/17 12:00 100 07/14/17 12:00 98.6 22 109/86 (94) I/O 07/14/17 07/14/17 07/15/17 08:00 16:00 00:00 Output Total 600 ml Balance -600 ml Lab Results Test 07/14/17 07:52 White Blood Count 13.1 TH/MM3 Red Blood Count 3.77 MIL/MM3 Hemoglobin 13.9 GM/DL Hematocrit 40.7 % Mean Corpuscular Volume 108.1 FL Mean Corpuscular Hemoglobin 36.9 PG Mean Corpuscular Hemoglobin Concent 34.2 % Red Cell Distribution Width 14.5 % Platelet Count 246 TH/MM3 Mean Platelet Volume 8.5 FL Blood Urea Nitrogen 5 MG/DL Creatinine 0.35 MG/DL Random Glucose 82 MG/DL Calcium Level 8.7 MG/DL Magnesium Level 1.8 MG/DL Sodium Level 132 MEQ/L Potassium Level 4.6 MEQ/L Chloride Level 99 MEQ/L Carbon Dioxide Level 25.5 MEQ/L Anion Gap 8 MEQ/L Estimat Glomerular Filtration Rate 191 ML/MIN Date/Time Source Procedure Growth Status 07/09/17 20:40 Blood Peripheral Aerobic Blood Culture - Final NO GROWTH IN 5 DAYS Complete 07/09/17 20:40 Blood Peripheral Anaerobic Blood Culture - Final NO GROWTH IN 5 DAYS Complete 07/13/17 15:30 Nasal Aspirate Influenza Types A,B Antigen (RL) - Final NEGATIVE FOR FLU A AND B ANTIGEN.... Complete 07/09/17 20:40 Urine Random Urine Urine Culture - Final Escherichia Coli Pseudomonas Aeruginosa Complete Mental Status Examination Appearance: Appropriate Consciousness: Alert Orientation: x4 Motor Activity: Normal gait Speech: Unremarkable Language: Adequate Fund of Knowledge: Adequate Attention and Concentration: Adequate Memory: Unremarkable Mood: Sad Affect: Sad Thought Process & Associations: Intact Thought Content: Appropriate Hallucination Type: None Delusion Type: None Suicidal Ideation: No Suicidal Plan: No Suicidal Intention: No Homicidal Ideation: No Homicidal Plan: No Homicidal Intention: No Insight: Adequate Judgment: Adequate Assessment & Plan Problem List: (1) Adjustment disorder with depressed mood ICD Codes: F43.21 - Adjustment disorder with depressed mood Assessment & Plan Estimated LOS: days. Patient felt to have depression as the direct result and the indirect result of her chronic alcoholism. This would also explain her anhedonia and her anorexia. This physician notes she was transferred to the [facility] from [facility], where she was being treated for alcoholism. In the face of chronic alcoholism, it is inappropriate for this physician to diagnose a major depressive disorder or some other major mental disorder. Patient's psychiatric needs are currently best served by providing supportive care. This would include medications for detox, nutritional supplements such as boost, appetite stimulants such as Remeron or Maxalt, and supportive encouragement from family and friends. Antidepressants are not likely to work under these circumstances. This physician hopes the patient can continue with rehabilitation at [facility] once she is medically stabilized. Marv Kearney MD Jul 14, 2017 16:33
[2017-07-14] MEDS: methylPREDNISolone SOD SUCC 40 MG/1 ML VIAL IV PUSH SCH ×2 (18:39→22:00)
[2017-07-14] MEDS: ENOXAPARIN SODIUM 30 MG/0.3 ML SYRINGE SQ SCH (18:39)
[2017-07-15] VITALS (16 sets, daily range): BP systolic 81–137; BP diastolic 44–89; PULSE 76–118; RESP 15–18; TEMP 97.7–98.4; O2SAT 92–100
[2017-07-15] MEDS: RESP: ALBUTEROL 2.5 MG/IPRATROPIUM 0.5 MG NEB (SCH) NEB ×4 (00:01→19:51)
[2017-07-15] MEDS: methylPREDNISolone SOD SUCC 40 MG/1 ML VIAL IV PUSH SCH ×5 (02:12→21:49)
[2017-07-15] MEDS: LEVOFLOXACIN 750 MG PREMIX INJ 150 ML IV SCH ×2 (05:00→09:00)
[2017-07-15] MEDS ORDERED: RESP: ACETYLCYSTEINE 20% 30 ML NEB NEB ONE (05:30)
--- NOTE | 2017-07-15 06:12 | RADRPT ---
EXAM DATE/TIME: 07/15/2017 05:26 [facility] COMPARISON: CT PULMONARY ANGIOGRAM, July 09, 2017, 23:22. CHEST SINGLE AP, July 09, 2017, 20:04. INDICATIONS : Shortness of breath, Low O2 SATS MEDICAL HISTORY : Chronic obstructive pulmonary disease. SURGICAL HISTORY : None. ENCOUNTER: Subsequent ACUITY: 1 week PAIN SCORE: 6/10 LOCATION: Bilateral chest FINDINGS: There has been interval collapse of the right lower lobe. There is rightward cardiomediastinal shift. Left lung remains focally clear. CONCLUSION: Collapse of the right lower lobe Kristian Avery MD on July 15, 2017 at 6:10 Board Certified Radiologist. This report was verified electronically.
[2017-07-15 06:13] LABS: BLOOD GAS BASE EXCESS 0.9 mmol/L (-2-2); BLOOD GAS HCO3 26 mmol/L (22-26); BLOOD GAS METHEMOGLOBIN 0.6 % (0-2); BLOOD GAS O2 HGB SATURATION 86 % (90-100); BLOOD GAS OXYGEN CONTENT 17.4 Vol % (12.0-20.0); BLOOD GAS PCO2 46 mmHg (38-42); BLOOD GAS PO2 57 mmHg (61-120); BLOOD GAS TOTAL HGB 14.3 G/DL (12.0-16.0); TEMP CORR TO 98.6
[2017-07-15 06:13] LABS: HEMATOCRIT 37.7 % (35.0-46.0); MEAN CELL VOLUME 106.9 FL (80.0-100.0); MEAN CORPUSCULAR HEMOGLOBIN 36.7 PG (27.0-34.0); MEAN CORPUSCULAR HGB CONC 34.3 % (32.0-36.0); PLATELET COUNT 332 TH/MM3 (150-450); RED BLOOD COUNT 3.52 MIL/MM3 (4.00-5.30); RED CELL DISTRIBUTION WIDTH 14.7 % (11.6-17.2); REVIEW FLAG FINAL
[2017-07-15 06:14] LABS: CRITICAL VALUE YES; DRAW SITE RT RADIAL; FIO2 100 %; NUMBER OF ARTERIAL PUNCTURES 1; OXYGEN DEVICE NRB; STAT YES; ULNAR PULSE PRESENT
[2017-07-15] MEDS ORDERED: ROCURONIUM INJ 100 MG/10 ML VIAL IV ONE (06:45)
[2017-07-15] MEDS ORDERED: ETOMIDATE 40 MG/20 ML VIAL IV PUSH ONE (06:45)
[2017-07-15 06:53] LABS: BICARBONATE 23.8 MEQ/L (21.0-32.0); MAGNESIUM 1.7 MG/DL (1.5-2.5); POTASSIUM 4.5 MEQ/L (3.5-5.1)
[2017-07-15] MEDS ORDERED: ETOMIDATE 20 MG/10 ML VIAL ONE (07:23)
--- NOTE | 2017-07-15 07:39 | PD.CONS ---
[facility] Service Critical Care Medicine Consult Requested By Ana Velez Reason for Consult Respiratory failure Primary Care Physician No Primary Care Physician History of Present Illness This is a 48-year-old female. Date of admission 07/10/2017. Date of consult 07/13/2017. 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 Patient was admitted to [facility] from [facility] with chief complaints of neck pain and symptomatic hypotension. She was originally admitted under the hospitalist service. Evaluation include evaluation by neurosurgery for C3/4 disc protrusion. Changes on MRI were thought to be secondary to radiation therapy. There is no spinal cord compression or significant foraminal encroachment. Recommended conservative therapy. Patient was evaluated by gastroenterology for dysphagia. Modified barium swallow showed no aspiration. Patient was evaluated by psychiatry for depression. Dr. Kearney recommended supportive care. Patient was evaluated by infectious disease for urinary tract infection. Patient is currently on levofloxacin for Pseudomonas and Escherichia coli UTI. This a.m., patient became acutely hypoxic likely secondary to aspiration. She was minimally responsive but was able to get permission for intubation and central line placement. Her peripheral IV was nonfunctional therefore central line was placed and patient was emergently intubated post line procedure. Follow-up chest x-ray revealed significant right lower lobe infiltrates likely aspiration. She is currently on low-dose norepinephrine. Review of Systems ROS Limitations: Intubated Past Family Social History Allergies: Coded Allergies: penicillin G (Verified Allergy, Severe, hives, 07/09/17) Past Medical History Depression/anxiety Alcohol abuse Seizure disorder NOS COPD Hepatitis C Valvular heart disease Hyperthyroidism History of vocal cord/laryngeal cancer status post radiation in chemotherapy C3/4 disc protrusion Past Surgical History Partial hysterectomy Cholecystectomy Bladder fistula repair Reported Medications Clonidine (Clonidine HCl) 0.1 Mg Tab 0.1 Mg PO Q3HR PRN Vistaril (Hydroxyzine Pamoate) 25 Mg Cap 25 Mg PO Q6H PRN Ativan (Lorazepam) 0.5 Mg Tab 0.5 Mg PO Q6H PRN Active Ordered Medications Reviewed in EMR Family History Not significant for coronary artery disease, hypertension, diabetes or cancer. Social History 1/2-1 pack per day 30 years. Binge drinking prior to Saturday admission to [facility]. Denies illicit drug use. Physical Exam Vital Signs Vital Signs Date Time Temp Pulse Resp B/P (MAP) Pulse Ox O2 Delivery O2 Flow Rate FiO2 07/15/17 06:31 118 18 85/56 (66) 96 07/15/17 06:27 92 100 07/15/17 06:25 98.4 114 16 81/44 (56) 97 07/15/17 06:12 94 Non-Rebreather 15.00 07/15/17 05:39 95 Non-Rebreather 15.00 07/15/17 05:33 90 Non-Rebreather 15.00 07/15/17 05:31 83 Non-Rebreather 15.00 07/15/17 05:25 80 Nasal Cannula 5.00 07/15/17 05:15 93 Nasal Cannula 5.00 07/15/17 05:15 93 Nasal Cannula 5.00 07/15/17 04:55 82 Nasal Cannula 4.00 07/15/17 04:00 97.7 99 18 92/55 (67) 07/15/17 00:02 97 Nasal Cannula 2.00 07/15/17 00:00 97.9 93 16 105/51 (69) 97 07/14/17 20:00 97.4 92 16 113/63 (80) 97 07/14/17 16:16 99 Nasal Cannula 3.00 07/14/17 16:00 98.7 97 20 124/70 (88) 97 07/14/17 12:00 100 07/14/17 12:00 98.6 98 22 109/86 (94) 99 07/14/17 08:00 98.4 92 18 95/63 (74) 98 Physical Exam GENERAL: 56-year-old female, critically ill currently orotracheally intubated SKIN: Cool and dry. Significant ecchymoses bilateral upper extremities. HEAD: Atraumatic. Normocephalic. EYES: Right pupil was 4 mm and reactive. Left pupil is 5 mm and reactive. No scleral icterus. No injection or drainage. ENT: No nasal bleeding or discharge. Mucous membranes pink and moist. NECK: Trachea midline. No JVD. CARDIOVASCULAR: Tachycardic, RR. S1, S2. No S4. No S3. 2/6 systolic murmur best appreciated in the left lower sternal border. RESPIRATORY: Breath sounds appreciated in the right lower lobe. No wheezing. Symmetrical excursion. GASTROINTESTINAL: Abdomen soft, non-tender, scaphoid. Hypoactive bowel sounds are appreciated.. MUSCULOSKELETAL: Extremities without significant peripheral edema. Ecchymoses at site of left upper extremity BP NEUROLOGICAL: Prior to intubation, awake and able to follow commands. Moves all 4 extremities spontaneously. Laboratory Laboratory Tests Test 07/14/17 07:52 07/15/17 05:55 07/15/17 06:04 White Blood Count 13.1 13.0 Red Blood Count 3.77 3.52 Hemoglobin 13.9 12.9 Hematocrit 40.7 37.7 Mean Corpuscular Volume 108.1 106.9 Mean Corpuscular Hemoglobin 36.9 36.7 Mean Corpuscular Hemoglobin Concent 34.2 34.3 Red Cell Distribution Width 14.5 14.7 Platelet Count 246 332 Mean Platelet Volume 8.5 7.8 Blood Urea Nitrogen 5 6 Creatinine 0.35 0.38 Random Glucose 82 150 Calcium Level 8.7 8.7 Magnesium Level 1.8 1.7 Sodium Level 132 130 Potassium Level 4.6 4.5 Chloride Level 99 96 Carbon Dioxide Level 25.5 23.8 Anion Gap 8 10 Estimat Glomerular Filtration Rate 191 174 Blood Gas Puncture Site RT RADIAL Blood Gas Patient Temperature 98.6 Blood Gas HCO3 26 Blood Gas Base Excess 0.9 Blood Gas Oxygen Saturation 86 Arterial Blood pH 7.36 Arterial Blood Partial Pressure CO2 46 Arterial Blood Partial Pressure O2 57 Arterial Blood Oxygen Content 17.4 Arterial Blood Carboxyhemoglobin 1.0 Arterial Blood Methemoglobin 0.6 Blood Gas Hemoglobin 14.3 Oxygen Delivery Device NRB Blood Gas Inspired Oxygen 100 Date/Time Source Procedure Growth Status 07/09/17 20:40 Blood Peripheral Aerobic Blood Culture - Final NO GROWTH IN 5 DAYS Complete 07/09/17 20:40 Blood Peripheral Anaerobic Blood Culture - Final NO GROWTH IN 5 DAYS Complete 07/13/17 15:30 Nasal Aspirate Influenza Types A,B Antigen (RL) - Final NEGATIVE FOR FLU A AND B ANTIGEN.... Complete 07/09/17 20:40 Urine Random Urine Urine Culture - Final Escherichia Coli Pseudomonas Aeruginosa Complete Result Diagram: 07/15/17 0604 07/15/17 0604 Imaging Last Impressions Chest X-Ray 07/15/17 0739 Signed Impressions: Service Date/Time: Saturday, July 15, 2017 07:40 - CONCLUSION: Right basilar consolidation with volume loss. Jonny Benton MD Barium Swallow X-Ray 07/14/17 Signed Impressions: Service Date/Time: Friday, July 14, 2017 11:58 - CONCLUSION: 1. There was penetration of barium into the airway with coating of the inferior aspect of the epiglottis but no definite aspiration. Rehabilitation swallow service would be indicated for further assessment. 2. No findings to indicate esophageal obstruction were identified. Silvestre Sumner MD Cervical Spine MRI 07/10/17 Signed Impressions: Service Date/Time: Monday, July 10, 2017 16:30 - CONCLUSION: Very large right paracentral disc herniation at C3-4 obliterating the right lateral recess and neural foramen Kristian Avery MD Head CT 07/09/171950 Signed Impressions: Service Date/Time: Sunday, July 09, 2017 20:45 - CONCLUSION: No acute disease. Kristian Fierro MD Cervical Spine CT 07/09/17 Signed Impressions: Service Date/Time: Sunday, July 09, 2017 20:45 - CONCLUSION: 1. Focal lucent lesion at the anterior-inferior aspect of the C3 vertebral body. Much of the anterior cortex over this region is missing. There is some fragmentation at the anterior-inferior cortex which may represent some minimal fracturing of the anterior-inferior aspect of the C3 vertebral body at the margin of this lucent mass. The remaining aspect of the C3 vertebral body is intact. 2. Right lateral recess mild disc protrusion at the C3-C4 level. There does appear to be increased soft tissue density in the anterior right lateral epidural space at this region and extending to the C2-3 level. This could be secondary to some degree of superior extrusion and/or some degree of accompanying hemorrhage. There does continue to be CSF around the cord at these levels. 3. Air within the epidural space and the prevertebral soft tissues likely from disruption of the C3-4 disc. 4. The cervical spine could be further evaluated with an MRI examination with and without contrast. The above information was relayed to Dr. Portillo by telephone. Kristian Fierro MD CT Angiography 07/09/17 Signed Impressions: Service Date/Time: Sunday, July 09, 2017 23:22 - CONCLUSION: 1. No pulmonary embolus. 2. Suspected pulmonary artery hypertension. 3. Mild to moderate emphysema. 4. Patchy bilateral infiltrate including bilateral nodular areas which are most likely infectious or inflammatory. Followup noncontrast chest CT is recommended in approximately 3 months. The nonspecific mildly enlarged right hilar lymph node should be rechecked at that time as well. 5. Tiny pericardial effusion. Kristian Abraham MD Assessment and Plan Assessment and Plan Neuro/Psych: Depression/anxiety Seizure disorder NOS EtOH abuse C3/4 disc protrusion Patient is currently on propofol/fentanyl drips for sedation/analgesia while intubated Goal of RA SS -2 to -1 Daily sedation vacation Patient is currently on thiamine, folate and multivitamin for EtOH abuse Patient was evaluated by Dr. Kearney/psychiatry this admission. Recommended supportive care. Possibly Maxalt/Remeron for dietary stimulation C-spine revealed C3/4 disc protrusion with mild foraminal protrusion without spinal cord compression. Likely radiation therapy induced. Evaluated by neurosurgery/Dr. Love. No intervention planned at this time CV: Sepsis Valvular Heart disease NOS Patient is currently on norepinephrine 4 g per minute to maintain mean arterial pressure greater than equal to 65 Status post 1 L normal saline Check CVP See infectious disease for antibiotic coverage Serial lactates Check limited 2-D echocardiogram to evaluate heart valves. Resp: Acute hypoxic hypercapnic respiratory failure likely secondary to aspiration pneumonia COPD [facility] 15/450/ Ventilator bundle Albuterol/ipratropium aerosols every 6 hours with albuterol aerosols every 2 hours as needed for dyspnea Spontaneous breathing trials when clinically indicated Follow-up post intubation ABG and chest x-ray CTA chest revealed moderate emphysema. Nodular densities recommended 3 month follow-up CT . GI: Dysphagia Severe protein calorie malnutrition NG tube has been placed currently to low intermittent wall suction Start tube feedings per dietary's recommendations. I did Jevity 1.5 goal 40 cc an hour lansoprazole for GI prophylaxis Docusate sodium liquid 100 mg twice a day for bowel regimen Gastroenterology is following Modified barium swallow showed penetration to the class but no suzanne aspiration. No signs of esophageal blockage : Mckee catheter has been placed for accurate I's and O's in a critically ill patient Endo: History of hypothyroidism Check TSH/free T4. Sliding-scale insulin with Accu-Cheks every 6 hours to maintain euglycemia Novulin R moderate regimen Renal: Creatinine currently within normal limits Monitor urine output Accurate I's and O's Currently on normal saline at 84 cc an hour Heme: Leukocytosis Macrocytosis Monitor CBC daily. Follow trends ID: Escherichia coli/Pseudomonas urinary tract infection Patient is currently on levofloxacin, aztreonam and vancomycin Pertinent cultures 07/13 - influenza a and b 07/09 - urine - E coli/Pseudomonas aeruginosa 07/09 - blood cultures 2 - no growth to date Infectious disease is following FEN: Hyponatremia Replace electrolytes as clinically indicated per ICU electrolyte protocol MSK: General debilitation PT/OT evaluate and treat Access - Utilize left IJ CVL day 1 placed 07/15/2017 Prophylaxis - GI - lansoprazole - DVT - SCD/enoxaparin Critical Care: The total critical care time was 35 minutes. Time to perform other separately billable procedures was not included in the critical care time. 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 Care plan discussed and all questions answered. Jace Yang MD Jul 15, 2017 07:39
--- NOTE | 2017-07-15 07:41 | PD.PROCEDR ---
Central Line Procedure REASON FOR PROCEDURE Central venous access PROCEDURE PERFORMED Central line placement: Left IJ CVL CONSENT Informed consent for procedure was obtained. The risks and benefits of the procedure were discussed to include but limited to bleeding, clot formation, infection, and even . ANESTHESIA Local injection of 1% Lidocaine DESCRIPTION OF THE PROCEDURE The patient was placed in supine, mild Trendelenburg position. The area was exposed and cleansed with ChloraPrep, times two. Large sterile drape was used to cover the patient, with the site exposed, under sterile conditions including cap, face mask, sterile gown, and sterile gloves. On single attempt, the introducer needle was inserted with negative pressure in syringe and venous flash was obtained. The guide wire was then advanced without any restriction and the needle was removed. The dilator was used without any complications. Using Seldinger technique the antibiotics coated triple-lumen catheter was advanced over the guide wire to a depth of 20 centimeters. The guide wire was removed. All ports were aspirated with dark venous blood return and flushed easily with sterile saline. All ports were capped. Antibiotic disc was placed around central line at puncture site. The central line was secured to the skin with two interrupted 2.0 silk sutures. The area was bandaged with sterile see- through central line bandage. RADIOLOGICAL DATA Ultrasound guidance was used to locate the left internal jugular vein. Doppler/ color flow was used to confirm venous flow. COMPLICATIONS: No apparent complications ESTIMATED BLOOD LOSS: Less than 1 cc. Jace Yang MD Jul 15, 2017 07:41
[2017-07-15] MEDS ORDERED: RESP: ALBUTEROL 2.5 MG/3 ML NEB (PRN) NEB (07:45)
[2017-07-15] MEDS ORDERED: SODIUM CHLOR 0.9% 1000 ML INJ 1,000 ML IV ONE (07:45)
[2017-07-15] MEDS ORDERED: SODIUM CHLORIDE 0.9% FLUSH 10 ML FLUSH IV FLUSH PRN (07:45)
--- NOTE | 2017-07-15 07:45 | PD.PROCEDR ---
Procedure Note Procedure DATE: 07/15/17 PROCEDURE: Orotracheal intubation INDICATION: Respiratory failure DETAILS OF PROCEDURE The patient was placed in optimal position and preoxygenated with 100% FiO2 via bag valve mask. At the start oxygen saturation was 100%. The patient was administered 20 mg etomidate IV. I entered the oropharynx with a size 3 laryngoscope blade and obtained a grade 2 view of the airway. On single attempt a size 7.5 cuffed endotracheal tube was passed through the vocal cords. Correct tube location was confirmed with end tidal CO2 detector and by auscultating over bilateral lung peters. The endotracheal tube was secured with adhesive tape at a depth of 23 cm at the lips. The patient was connected to the ventilator. The patient tolerated the procedure well without any apparent complications. Oxygen saturations were maintained greater than 95% all times. STAT chest x-ray pending at time of dictation. Jace Yang MD Jul 15, 2017 07:45
--- NOTE | 2017-07-15 08:20 | RADRPT ---
EXAM DATE/TIME: 07/15/2017 07:40 [place] COMPARISON: CHEST SINGLE AP, July 15, 2017, 5:26. INDICATIONS : Verify central line placement. MEDICAL HISTORY : Chronic obstructive pulmonary disease. Cancer of vocal cords, right side. SURGICAL HISTORY : Hysterectomy. Cholecystectomy. ENCOUNTER: Subsequent ACUITY: 4 - 6 days PAIN SCORE: Non-responsive. LOCATION: Bilateral chest FINDINGS: A single view of the chest demonstrates right basilar opacification with volume loss. Left jugular ce ntral line with tip in the cavoatrial junction. No pneumothorax. Endotracheal tube is seen with tip 4 cm above the naveed. Osseous structures are intact. CONCLUSION: Right basilar consolidation with volume loss. Jonny Benton MD on July 15, 2017 at 8:18 Board Certified Radiologist. This report was verified electronically.
[2017-07-15] MEDS: SODIUM CHLORIDE 0.9% FLUSH 10 ML FLUSH IV FLUSH SCH ×3 (09:00→21:00)
[2017-07-15] MEDS: fentaNYL DRIP 250 ML IV PRN (09:04)
[2017-07-15] MEDS: metroNIDAZOLE 500 MG INJ 100 ML IV SCH ×2 (09:06→18:00)
[2017-07-15] MEDS: SODIUM CHLOR 0.9% 1000 ML INJ 1,000 ML IV SCH ×2 (09:07→20:06)
[2017-07-15] MEDS: CHLORHEXIDINE 0.12% (ORAL KIT) 15 ML CUP MT SCH ×2 (09:08→20:07)
[2017-07-15] MEDS: MAGNESIUM SULFATE 1 GM PREMIX 100 ML IV SCH ×4 (09:08→20:07)
[2017-07-15] MEDS: THIAMINE HCL 100 MG TAB PO SCH (09:10)
[2017-07-15 09:11] LABS: BLOOD GAS BASE EXCESS -1.5 mmol/L (-2-2); BLOOD GAS CARBOXYHEMOGLOBIN 0.8 % (0-4); BLOOD GAS HCO3 24 mmol/L (22-26); BLOOD GAS METHEMOGLOBIN 0.7 % (0-2); BLOOD GAS O2 HGB SATURATION 96 % (90-100); BLOOD GAS OXYGEN CONTENT 18.8 Vol % (12.0-20.0); BLOOD GAS PCO2 49 mmHg (38-42); BLOOD GAS PO2 114 mmHg (61-120); BLOOD GAS TOTAL HGB 13.8 G/DL (12.0-16.0); CRITICAL VALUE NO; TEMP CORR TO 98.6
[2017-07-15 09:12] LABS: DRAW SITE RT RADIAL; FIO2 100 %; NUMBER OF ARTERIAL PUNCTURES 2; STAT NO; ULNAR PULSE PRESENT
[2017-07-15] MEDS ORDERED: LANSOPRAZOLE SOLUTAB 30 MG TAB NG ONE (09:15)
[2017-07-15] MEDS ORDERED: DEXTROSE 50% IN WATER 50 ML VIAL(D50) IV PUSH PRN (09:45)
[2017-07-15] MEDS ORDERED: GLUCAGON 1 MG/ML VIAL OTHER PRN (09:45)
[2017-07-15] MEDS ORDERED: MAGNESIUM SULFATE INJ 2 GM in SODIUM CHLORIDE 0.9% INJ 96 ML IV PRN (10:00)
[2017-07-15] MEDS ORDERED: POTASSIUM PHOSPHATE MONOBASIC 500 MG TAB PO PRN (10:00)
[2017-07-15] MEDS ORDERED: MAGNESIUM SULFATE INJ 4 GM in SODIUM CHLORIDE 0.9% INJ 92 ML IV PRN (10:00)
[2017-07-15] MEDS ORDERED: INFLUENZA VIRUS VACCINE (QUADRIVALENT) 0.5 ML SYR IM ONE (10:00)
[2017-07-15] MEDS ORDERED: SODIUM PHOSPHATE INJ 30 MMOL in SODIUM CHLOR 0.9% 250 ML INJ 240 ML IV PRN (10:00)
[2017-07-15] MEDS ORDERED: POTASSIUM CHLORIDE 25 MEQ EFFERVESCENT TAB PO PRN (10:00)
[2017-07-15] MEDS ORDERED: POTASSIUM CHLOR 20 MEQ PREMIX 100 ML IV PRN ×2 (10:00)
[2017-07-15] MEDS ORDERED: POTASSIUM PHOSPHATE MONOBASIC 500 MG TAB PO/TUBE PRN (10:00)
[2017-07-15] MEDS ORDERED: MAGNESIUM OXIDE 400 MG TAB PO PRN (10:00)
[2017-07-15] MEDS ORDERED: POTASSIUM CHLOR 40 MEQ PREMIX 100 ML IV PRN ×2 (10:00)
[2017-07-15] MEDS ORDERED: MICONAZOLE NITRATE 2% VAG CREAM 45 GM VAGINAL ONE (10:15)
[2017-07-15 10:37] LABS: BLOOD, URINE NEG (NEG); COMMENT (UR) CATH-CULT NOT IND; CULTURE IF INDICATED CATH CULTURE NOT IND; GLUCOSE,URINE NEG (NEG); KETONE, URINE 40 mg/dL (NEG); NITRITE,URINE NEG (NEG); SQUAMOUS EPITHELIAL CELL URINE 1 /hpf (0-5); TRANSITIONAL EPI CELLS, URINE <1 /hpf; URINE COLOR YELLOW (YELLW/STRAW)
[2017-07-15] MEDS: INSULIN NovoLIN REGULAR SUPPLEMENTAL SCALE SQ SCH ×2 (12:00→18:00)
[2017-07-15] MEDS: AZTREONAM INJ 2,000 MG in SODIUM CHLORIDE 0.9% INJ 100 ML IV SCH ×2 (12:16→18:02)
--- NOTE | 2017-07-15 12:30 | HHI.GIFU ---
Subjective Remarks Pt was Halicated earlier this morning for respiratory distress and required emergent intubation with mechanical ventilation. NGT was placed and is to suction. She is lightly sedated, following commands. (Padmini Blevins) Objective Vitals I&O Vital Signs Date Time Temp Pulse Resp B/P (MAP) Pulse Ox O2 Delivery O2 Flow Rate FiO2 07/15/17 07:30 100 100 07/15/17 06:31 118 18 85/56 (66) 96 07/15/17 06:27 92 100 07/15/17 06:25 98.4 114 16 81/44 (56) 97 07/15/17 06:12 94 Non-Rebreather 15.00 07/15/17 05:39 95 Non-Rebreather 15.00 07/15/17 05:33 90 Non-Rebreather 15.00 07/15/17 05:31 83 Non-Rebreather 15.00 07/15/17 05:25 80 Nasal Cannula 5.00 07/15/17 05:15 93 Nasal Cannula 5.00 07/15/17 05:15 93 Nasal Cannula 5.00 07/15/17 04:55 82 Nasal Cannula 4.00 07/15/17 04:00 97.7 99 18 92/55 (67) 07/15/17 00:02 97 Nasal Cannula 2.00 07/15/17 00:00 97.9 93 16 105/51 (69) 97 07/14/17 20:00 97.4 92 16 113/63 (80) 97 07/14/17 16:16 99 Nasal Cannula 3.00 07/14/17 16:00 98.7 97 20 124/70 (88) 97 I/O 07/14/17 07/14/17 07/14/17 07/15/17 07/15/17 07/15/17 07:00 15:00 23:00 07:00 15:00 23:00 Intake Total 240 ml 0 ml Output Total 600 ml Balance -600 ml 240 ml 0 ml Intake Oral 240 ml 0 ml Output Urine Total 600 ml # Voids 3 1 1 # Bowel Movements 0 0 Laboratory Laboratory Tests Test 07/15/17 05:55 07/15/17 06:04 07/15/17 08:57 07/15/17 10:00 Blood Gas Puncture Site RT RADIAL RT RADIAL Blood Gas Patient Temperature 98.6 98.6 Blood Gas HCO3 26 24 Blood Gas Base Excess 0.9 -1.5 Blood Gas Oxygen Saturation 86 96 Arterial Blood pH 7.36 7.31 Arterial Blood Partial Pressure CO2 46 49 Arterial Blood Partial Pressure O2 57 114 Arterial Blood Oxygen Content 17.4 18.8 Arterial Blood Carboxyhemoglobin 1.0 0.8 Arterial Blood Methemoglobin 0.6 0.7 Blood Gas Hemoglobin 14.3 13.8 Oxygen Delivery Device NRB Blood Gas Inspired Oxygen 100 100 White Blood Count 13.0 Red Blood Count 3.52 Hemoglobin 12.9 Hematocrit 37.7 Mean Corpuscular Volume 106.9 Mean Corpuscular Hemoglobin 36.7 Mean Corpuscular Hemoglobin Concent 34.3 Red Cell Distribution Width 14.7 Platelet Count 332 Mean Platelet Volume 7.8 Blood Urea Nitrogen 6 Creatinine 0.38 Random Glucose 150 Calcium Level 8.7 Magnesium Level 1.7 Sodium Level 130 Potassium Level 4.5 Chloride Level 96 Carbon Dioxide Level 23.8 Anion Gap 10 Estimat Glomerular Filtration Rate 174 Blood Gas Ventilator Setting Urine Color YELLOW Urine Turbidity CLEAR Urine pH 6.0 Urine Specific Girard 1.011 Urine Protein NEG Urine Glucose (UA) NEG Urine Ketones 40 Urine Occult Blood NEG Urine Nitrite NEG Urine Bilirubin NEG Urine Urobilinogen LESS THAN 2.0 Urine Leukocyte Esterase NEG Urine RBC LESS THAN 1 Urine WBC 1 Urine Squamous Epithelial Cells 1 Urine Transitional Epithelial Cells <1 Microscopic Urinalysis Comment CATH-CULT NOT IND Date/Time Source Procedure Growth Status 07/09/17 20:40 Blood Peripheral Aerobic Blood Culture - Final NO GROWTH IN 5 DAYS Complete 07/09/17 20:40 Blood Peripheral Anaerobic Blood Culture - Final NO GROWTH IN 5 DAYS Complete 07/13/17 15:30 Nasal Aspirate Influenza Types A,B Antigen (RL) - Final NEGATIVE FOR FLU A AND B ANTIGEN.... Complete 07/15/17 10:00 Urine Catheterized Urine Legionella Antigen Pending Received 07/15/17 10:00 Urine Catheterized Urine Streptococcus pneumoniae Antigen (M Pending Received Imaging Last Impressions Chest X-Ray 07/15/17 0739 Signed Impressions: Service Date/Time: Saturday, July 15, 2017 07:40 - CONCLUSION: Right basilar consolidation with volume loss. Jonny Benton MD Barium Swallow X-Ray 07/14/17 0000 Signed Impressions: Service Date/Time: Friday, July 14, 2017 11:58 - CONCLUSION: 1. There was penetration of barium into the airway with coating of the inferior aspect of the epiglottis but no definite aspiration. Rehabilitation swallow service would be indicated for further assessment. 2. No findings to indicate esophageal obstruction were identified. Silvestre Sumner MD Cervical Spine MRI 07/10/17 Signed Impressions: Service Date/Time: Monday, July 10, 2017 16:30 - CONCLUSION: Very large right paracentral disc herniation at C3-4 obliterating the right lateral recess and neural foramen Kristian Avery MD Head CT 07/09/171950 Signed Impressions: Service Date/Time: Sunday, July 09, 2017 20:45 - CONCLUSION: No acute disease. Kristian Fierro MD Cervical Spine CT 07/09/17 Signed Impressions: Service Date/Time: Sunday, July 09, 2017 20:45 - CONCLUSION: 1. Focal lucent lesion at the anterior-inferior aspect of the C3 vertebral body. Much of the anterior cortex over this region is missing. There is some fragmentation at the anterior-inferior cortex which may represent some minimal fracturing of the anterior-inferior aspect of the C3 vertebral body at the margin of this lucent mass. The remaining aspect of the C3 vertebral body is intact. 2. Right lateral recess mild disc protrusion at the C3-C4 level. There does appear to be increased soft tissue density in the anterior right lateral epidural space at this region and extending to the C2-3 level. This could be secondary to some degree of superior extrusion and/or some degree of accompanying hemorrhage. There does continue to be CSF around the cord at these levels. 3. Air within the epidural space and the prevertebral soft tissues likely from disruption of the C3-4 disc. 4. The cervical spine could be further evaluated with an MRI examination with and without contrast. The above information was relayed to Dr. Portillo by telephone. Kristian Fierro MD CT Angiography 07/09/17 Signed Impressions: Service Date/Time: Sunday, July 09, 2017 23:22 - CONCLUSION: 1. No pulmonary embolus. 2. Suspected pulmonary artery hypertension. 3. Mild to moderate emphysema. 4. Patchy bilateral infiltrate including bilateral nodular areas which are most likely infectious or inflammatory. Followup noncontrast chest CT is recommended in approximately 3 months. The nonspecific mildly enlarged right hilar lymph node should be rechecked at that time as well. 5. Tiny pericardial effusion. Kristian Abraham MD Physical Exam HEENT: Normocephalic; atraumatic; no jaundice. CHEST: OETT to vent. Diminished bases CARDIAC: RRR ABDOMEN: Soft, nondistended, nontender; no hepatosplenomegaly; bowel sounds are present in all four quadrants. EXTREMITIES: BUE edematous SKIN: Normal; no rash; no jaundice. 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 Pt c/o intermittent bolus sensation, odynophagia, regurgitation foods solid and liquid for 11 years, hx vocal chord ca, s/p radiation S/P ST eval who recommended mech. soft and thin liquids. Barium swallow ( 07/14)---> penetration of barium into the airway with coating the inferior aspect of the epiglottis but no definite aspiration. No evidence of esophageal obstruction. Plan was for EGD with dilatation once her respiratory condition improves. She is now intubated, on mechanical ventilation. Possibly tomorrow. ? Need for PEG. Would benefit from modified barium swallow once extubated. - Abnormal weight loss. - Respiratory failure, Aspiration pneumonia, COPD/Emphysema. Legionella ag pending, streptococcus pneumoniae pending. BCx no growth 5 days. Vent per CCM. ID following. - UTI with E. Coli, PSAE. - Depression. per psych. - Hx of head and neck cancer, s/p radiation. - Hx Hepatitis C, unclear if this was treated or not. PLAN - Plan for egd with dilatation in am - Obtain consents - [employer] evaluation for TF recommendations - Okay to start TF from GI standpoint- will get supervisor laboratory's recommendations - Abx per ID recommendations - ? Need for PEG tube placement - Supportive care - Further recommendations to follow based on results of above - Pt seen and examined by Dr. Zepeda and myself and this note is written on his behalf (Padmini Blevins) Physician Comments Seen and examined with REUBEN, intubated last night for aspiration. EGD/Dil planned for tomorrow. Discussed with Family at the bedside. (Emily Zepeda MD) Padmini Blevins Jul 15, 2017 12:30 Emily Zepeda MD Jul 15, 2017 13:22
--- NOTE | 2017-07-15 12:50 | HHI.IDPN ---
Subjective Subjective Remarks is a 56 y/o CF with hx ETOH abuse, vocal cord ca s/p radiation who presented from [facility] with hypoxemia. She says she was smoking too much, getting drunk and falling down. After being at the center for 2 days she stood up and got dizzy. She was found to have bilat PNA. She has had difficulty swallowing for 11 years. She c/o of intermittent bolus sensation, regurgitation, and odynophagia. Has with liquids and solids. Never had EGD. Had colonoscopy 4-5 years ago in [facility], says findings were polyps. ID was consulted for evaluation and Mment of Bilateral Pneumonia, UTI. Overnight events reviewed Transferred to ICU for resp distress. Intubated. No fever No rash No diarrhea Antibiotics I attest I obtained, reviewed or updated home meds and current meds(name, dose, freq and route of meds) Levaquin IV Aztreonam IV Flagyl IV Lines Line sites with no e.o infection Past Medical History reviewed Allergies: Coded Allergies: penicillin G (Verified Allergy, Severe, hives, 07/09/17) Objective . Vital Signs Date Time Temp Pulse Resp B/P (MAP) Pulse Ox O2 Delivery O2 Flow Rate FiO2 07/15/17 07:30 100 100 07/15/17 06:31 118 18 85/56 (66) 96 07/15/17 06:27 92 100 07/15/17 06:25 98.4 114 16 81/44 (56) 97 07/15/17 06:12 94 Non-Rebreather 15.00 07/15/17 05:39 95 Non-Rebreather 15.00 07/15/17 05:33 90 Non-Rebreather 15.00 07/15/17 05:31 83 Non-Rebreather 15.00 07/15/17 05:25 80 Nasal Cannula 5.00 07/15/17 05:15 93 Nasal Cannula 5.00 07/15/17 05:15 93 Nasal Cannula 5.00 07/15/17 04:55 82 Nasal Cannula 4.00 07/15/17 04:00 97.7 99 18 92/55 (67) 07/15/17 00:02 97 Nasal Cannula 2.00 07/15/17 00:00 97.9 93 16 105/51 (69) 97 07/14/17 20:00 97.4 92 16 113/63 (80) 97 07/14/17 16:16 99 Nasal Cannula 3.00 07/14/17 16:00 98.7 97 20 124/70 (88) 97 . Laboratory Tests Test 07/14/17 07:52 07/15/17 06:04 White Blood Count 13.1 TH/MM3 13.0 TH/MM3 Red Blood Count 3.77 MIL/MM3 3.52 MIL/MM3 Hemoglobin 13.9 GM/DL 12.9 GM/DL Hematocrit 40.7 % 37.7 % Mean Corpuscular Volume 108.1 FL 106.9 FL Mean Corpuscular Hemoglobin 36.9 PG 36.7 PG Mean Corpuscular Hemoglobin Concent 34.2 % 34.3 % Red Cell Distribution Width 14.5 % 14.7 % Platelet Count 246 TH/MM3 332 TH/MM3 Mean Platelet Volume 8.5 FL 7.8 FL Laboratory Tests Test 07/14/17 07:52 07/15/17 06:04 07/15/17 12:00 Blood Urea Nitrogen 5 MG/DL 6 MG/DL Creatinine 0.35 MG/DL 0.38 MG/DL Random Glucose 82 MG/DL 150 MG/DL Calcium Level 8.7 MG/DL 8.7 MG/DL Magnesium Level 1.8 MG/DL 1.7 MG/DL Sodium Level 132 MEQ/L 130 MEQ/L Potassium Level 4.6 MEQ/L 4.5 MEQ/L Chloride Level 99 MEQ/L 96 MEQ/L Carbon Dioxide Level 25.5 MEQ/L 23.8 MEQ/L Anion Gap 8 MEQ/L 10 MEQ/L Estimat Glomerular Filtration Rate 191 ML/MIN 174 ML/MIN Microbiology Date/Time Source Procedure Growth Status 07/13/17 15:30 Nasal Aspirate Influenza Types A,B Antigen (RL) - Final NEGATIVE FOR FLU A AND B ANTIGEN.... Complete 07/15/17 10:00 Urine Catheterized Urine Legionella Antigen Pending Received 07/15/17 10:00 Urine Catheterized Urine Streptococcus pneumoniae Antigen (M Pending Received Imaging Last Impressions Chest X-Ray 07/15/17 0739 Signed Impressions: Service Date/Time: Saturday, July 15, 2017 07:40 - CONCLUSION: Right basilar consolidation with volume loss. Jonny Benton MD Barium Swallow X-Ray 07/14/17 Signed Impressions: Service Date/Time: Friday, July 14, 2017 11:58 - CONCLUSION: 1. There was penetration of barium into the airway with coating of the inferior aspect of the epiglottis but no definite aspiration. Rehabilitation swallow service would be indicated for further assessment. 2. No findings to indicate esophageal obstruction were identified. Silvestre Sumner MD Cervical Spine MRI 07/10/17 Signed Impressions: Service Date/Time: Monday, July 10, 2017 16:30 - CONCLUSION: Very large right paracentral disc herniation at C3-4 obliterating the right lateral recess and neural foramen Kristian Avery MD Head CT 07/09/171950 Signed Impressions: Service Date/Time: Sunday, July 09, 2017 20:45 - CONCLUSION: No acute disease. Kristian Fierro MD Cervical Spine CT 07/09/17 Signed Impressions: Service Date/Time: Sunday, July 09, 2017 20:45 - CONCLUSION: 1. Focal lucent lesion at the anterior-inferior aspect of the C3 vertebral body. Much of the anterior cortex over this region is missing. There is some fragmentation at the anterior-inferior cortex which may represent some minimal fracturing of the anterior-inferior aspect of the C3 vertebral body at the margin of this lucent mass. The remaining aspect of the C3 vertebral body is intact. 2. Right lateral recess mild disc protrusion at the C3-C4 level. There does appear to be increased soft tissue density in the anterior right lateral epidural space at this region and extending to the C2-3 level. This could be secondary to some degree of superior extrusion and/or some degree of accompanying hemorrhage. There does continue to be CSF around the cord at these levels. 3. Air within the epidural space and the prevertebral soft tissues likely from disruption of the C3-4 disc. 4. The cervical spine could be further evaluated with an MRI examination with and without contrast. The above information was relayed to Dr. Portillo by telephone. Kristian Fierro MD CT Angiography 07/09/17 Signed Impressions: Service Date/Time: Sunday, July 09, 2017 23:22 - CONCLUSION: 1. No pulmonary embolus. 2. Suspected pulmonary artery hypertension. 3. Mild to moderate emphysema. 4. Patchy bilateral infiltrate including bilateral nodular areas which are most likely infectious or inflammatory. Followup noncontrast chest CT is recommended in approximately 3 months. The nonspecific mildly enlarged right hilar lymph node should be rechecked at that time as well. 5. Tiny pericardial effusion. Kristian Abraham MD Physical Exam GENERAL: Thin built poorly-nourished, well-developed patient, in no apparent distress. SKIN: No rashes, ecchymoses or lesions. Cool and dry. HEAD: Atraumatic. Normocephalic. No temporal or scalp tenderness. EYES: Pupils equal round and reactive. Extraocular motions intact. No scleral icterus. No injection or drainage. ENT: Nose without bleeding, purulent drainage or septal hematoma. Throat without erythema, tonsillar hypertrophy or exudate. Uvula midline. Airway patent. NECK: Trachea midline. Supple, nontender, no meningeal signs. CARDIOVASCULAR: Regular rate and rhythm without murmurs, gallops, or rubs. RESPIRATORY: Clear to auscultation. Breath sounds equal bilaterally. No wheezes , rales, or rhonchi. GASTROINTESTINAL: Abdomen soft, non-tender, nondistended. MUSCULOSKELETAL: Extremities without clubbing, cyanosis, or edema. No joint tenderness, effusion, or edema noted. No calf tenderness. Negative Homans sign bilaterally. NEUROLOGICAL: Awake and alert. Cranial nerves II through XII intact. Motor and sensory grossly within normal limits. Five out of 5 muscle strength in all muscle groups. Normal speech. Psych: anxious, cursing at times. IV line sites with no e.o infection. Assessment & Plan Remarks Aspiration Pneumonia/HCAP Acute resp failure E.coli PSAE UTI vs colonization Alcoholism Weight loss Dysphagia Prior Head neck cancer s/p radiation C3-4 large disc herniation Depression Recs: Continue Azactam IV Continue Flagyl IV (plan for GI procedure will reassess after the procedure to change to oral) Continue Levaquin IV Appreciate GI consult. Follow cultures Follow clinically. d/w and JASON. Dolores Devlin MD Jul 15, 2017 12:50
[2017-07-15 13:22] LABS: FREE T3 1.11 PG/ML (2.18-3.98); FREE T4 1.53 NG/DL (0.76-1.46)
[2017-07-15] MEDS: ARTIFICIAL TEARS OPTH SOLN 15 ML BTL EACH EYE SCH ×2 (13:42→21:49)
[2017-07-15] MEDS: ENOXAPARIN SODIUM 30 MG/0.3 ML SYRINGE SQ SCH (18:00)
[2017-07-15] MEDS ORDERED: NOREPINEPHRINE-DEXTROSE DRIP 250 ML IV ONE (18:16)
[2017-07-15] MEDS: PROPOFOL 1000 MG/100 ML INJ 100 ML IV PRN (18:19)
[2017-07-15] MEDS: RESP: BUDESONIDE 0.5 MG/2 ML NEB NEB SCH (19:51)
[2017-07-15] MEDS: DOCUSATE SODIUM 100 MG/10 ML UDC PO SCH (21:49)
[2017-07-16] VITALS (18 sets, daily range): BP systolic 113–135; BP diastolic 58–72; PULSE 66–96; RESP 15–20; TEMP 97.8–98.5; O2SAT 97–100
[2017-07-16] MEDS: metroNIDAZOLE 500 MG INJ 100 ML IV SCH ×3 (00:48→16:17)
[2017-07-16] MEDS: INSULIN NovoLIN REGULAR SUPPLEMENTAL SCALE SQ SCH ×4 (00:50→18:00)
[2017-07-16] MEDS: AZTREONAM INJ 2,000 MG in SODIUM CHLORIDE 0.9% INJ 100 ML IV SCH ×3 (02:02→16:30)
[2017-07-16] MEDS: RESP: ALBUTEROL 2.5 MG/IPRATROPIUM 0.5 MG NEB (SCH) NEB ×4 (03:02→19:53)
[2017-07-16] MEDS: NOREPINEPHRINE 4 MG/D5W 250 ML IV PRN ×3 (03:27→22:41)
[2017-07-16 05:59] LABS: AUTOMATED NEUTROPHIL # 24.8 TH/MM3 (1.8-7.7); BASOPHIL # 0.1 TH/MM3 (0-0.2); BASOPHIL % 0.6 % (0.0-2.0); HEMATOCRIT 32.2 % (35.0-46.0); HEMO FLAGS DIFF FINAL; LYMPH % 0.8 % (9.0-44.0); LYMPHOCYTE # 0.2 TH/MM3 (1.0-4.8); MEAN CELL VOLUME 106.7 FL (80.0-100.0); MEAN CORPUSCULAR HEMOGLOBIN 35.9 PG (27.0-34.0); MEAN CORPUSCULAR HGB CONC 33.6 % (32.0-36.0); NEUT % 93.6 % (16.0-70.0); PLATELET COUNT 410 TH/MM3 (150-450); RED BLOOD COUNT 3.02 MIL/MM3 (4.00-5.30); RED CELL DISTRIBUTION WIDTH 14.9 % (11.6-17.2); WHITE BLOOD COUNT 26.5 TH/MM3 (4.0-11.0)
[2017-07-16 06:18] LABS: ANION GAP 8 MEQ/L (5-15); AST (GOT) 31 U/L (15-37); BICARBONATE 25.1 MEQ/L (21.0-32.0); BLOOD UREA NITROGEN 7 MG/DL (7-18); CHLORIDE 103 MEQ/L (98-107); GLOMERULAR FILTRATION RATE 174 ML/MIN (>89); MAGNESIUM 1.9 MG/DL (1.5-2.5); POTASSIUM 3.7 MEQ/L (3.5-5.1); SODIUM (NA) 136 MEQ/L (136-145)
[2017-07-16 06:19] LABS: ALT (GPT) 27 U/L (10-53)
[2017-07-16] MEDS: methylPREDNISolone SOD SUCC 40 MG/1 ML VIAL IV PUSH SCH ×3 (06:20→21:13)
[2017-07-16] MEDS: ARTIFICIAL TEARS OPTH SOLN 15 ML BTL EACH EYE SCH ×3 (06:20→21:14)
[2017-07-16 06:21] LABS: ALKALINE PHOSPHATASE 126 U/L (45-117); TOTAL BILIRUBIN ADULT 0.4 MG/DL (0.2-1.0)
[2017-07-16] MEDS: fentaNYL DRIP 250 ML IV PRN (06:36)
[2017-07-16] MEDS: CHLORHEXIDINE 0.12% (ORAL KIT) 15 ML CUP MT SCH ×2 (08:00→21:14)
[2017-07-16] MEDS: SODIUM CHLOR 0.9% 1000 ML INJ 1,000 ML IV SCH ×2 (08:19→21:14)
[2017-07-16] MEDS: RESP: BUDESONIDE 0.5 MG/2 ML NEB NEB SCH ×2 (08:26→19:53)
[2017-07-16] MEDS: THIAMINE HCL 100 MG TAB PO SCH (09:21)
[2017-07-16] MEDS: SODIUM CHLORIDE 0.9% FLUSH 10 ML FLUSH IV FLUSH SCH ×3 (09:21→21:13)
[2017-07-16] MEDS: LEVOFLOXACIN 750 MG PREMIX INJ 150 ML IV SCH (09:24)
[2017-07-16] MEDS: LANSOPRAZOLE SOLUTAB 30 MG TAB NG SCH (09:27)
[2017-07-16] MEDS: DOCUSATE SODIUM 100 MG/10 ML UDC PO SCH ×2 (09:27→21:12)
--- NOTE | 2017-07-16 10:37 | RADRPT ---
EXAM DATE/TIME: 07/16/2017 09:20 [facility] COMPARISON: CHEST SINGLE AP, July 15, 2017, 7:40. INDICATIONS : Pneumonia. MEDICAL HISTORY : Chronic obstructive pulmonary disease. Cancer of vocal cords, right side. SURGICAL HISTORY : Hysterectomy. Cholecystectomy. ENCOUNTER: Subsequent ACUITY: 1 week PAIN SCORE: Non-responsive. LOCATION: Bilateral chest FINDINGS: There are COPD changes. The heart is normal in size. There is a right basilar effusion. There are ate lectatic changes in the right lower lobe. The ET tube and central venous catheter in good position. The visualized bony structures demonstrate postsurgical changes in the left humerus are otherwise yanet ssly intact. CONCLUSION: 1. COPD changes with right basilar effusion and consolidation concerning for pneumonia. The overall s ize of the area of effusion and consolidation has decreased when compared to prior exam. 2. The support equipment is in satisfactory position. Silvestre Sumner MD on July 16, 2017 at 10:34 Board Certified Radiologist. This report was verified electronically.
[2017-07-16] MEDS ORDERED: PROPOFOL 200 MG/20 ML AMP IV ONE (12:00)
--- NOTE | 2017-07-16 15:16 | GIPROC ---
[facility] [address] [facility]. [facility], [address] EGD PROCEDURE REPORT EXAM DATE: 07/16/2017 PATIENT NAME: Avani Ellis MR #: [id number] BIRTHDATE: 1960 ATTENDING: Emily Zepeda MD ORDER #: [id number] BURR SANDER: Katelynn Montejo and Virgen Dee STATUS: inpatient INDICATIONS: The patient is a 56 yr old female here for an EGD due to dysphagia PROCEDURE PERFORMED: EGD w/ biopsy MEDICATIONS: Per Anesthesia and None. TOPICAL ANESTHETIC: CONSENT: The patient understands the risks and benefits of the procedure and understands that these risks include, but are not limited to: sedation, allergic reaction, infection, perforation and/or bleeding. Alternative means of evaluation and treatment include, among others: physical exam, x-rays, and/or surgical intervention. The patient elects to proceed with this endoscopic procedure. medical equipment was checked for proper function. Hand hygiene and appropriate measures for infection prevention was taken. After the risks, benefits and alternatives of the procedure were thoroughly explained, Informed consent was verified, confirmed and timeout was successfully executed by the treatment team. The patient was anesthetized with topical anesthesia and the [employer] [id number] endoscope was introduced through the mouth and advanced to the second portion of the duodenum. Retroflexed views revealed no abnormalities The gastroscope was then slowly withdrawn and removed. ESOPHAGUS: The mucosa of the esophagus appeared normal. STOMACH: There was erythematous moderate gastritis in the gastric antrum. A biopsy was performed using cold forceps. Sample sent for histology. DUODENUM: The duodenal mucosa appeared normal in the bulb and second portion of the duodenum. ADVERSE EVENTS: There were no complications. IMPRESSIONS: 1. The esophagus appeared normal 2. There was erythematous gastritis in the gastric antrum; biopsy was performed 3. Normal duodenal mucosa in the bulb and second portion of the duodenum 4. Retroflexed views revealed no abnormalities RECOMMENDATIONS: 1. Await biopsy results. Biopsy results will not be ready for 7-10 days. If you don't hear from us in two weeks, call our office for biopsy results. 2. Anti-reflux regimen 3. Continue PPI PATIENT CONDITION: stable DISPOSITION: Inpatient REPEAT EXAM: Return 1 year EGD with dilatation Emily Zepeda MD eSigned: Emily Zepeda MD 07/16/2017 3:16 PM cc: PATIENT NAME: Avani Ellis MR#: [id number]
[2017-07-16] MEDS: PROPOFOL 1000 MG/100 ML INJ 100 ML IV PRN (15:44)
--- NOTE | 2017-07-16 17:37 | HHI.CCPN ---
Subjective Remarks/Hospital Course This is a 48-year-old female. Date of admission 07/10/2017. Date of consult 07/13/2017. 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 Patient was admitted to [facility] from [facility] with chief complaints of neck pain and symptomatic hypotension. She was originally admitted under the hospitalist service. Evaluation include evaluation by neurosurgery for C3/4 disc protrusion. Changes on MRI were thought to be secondary to radiation therapy. There is no spinal cord compression or significant foraminal encroachment. Recommended conservative therapy. Patient was evaluated by gastroenterology for dysphagia. Modified barium swallow showed no aspiration. Patient was evaluated by psychiatry for depression. Dr. Kearney recommended supportive care. Patient was evaluated by infectious disease for urinary tract infection. Patient is currently on levofloxacin for Pseudomonas and Escherichia coli UTI. This a.m., patient became acutely hypoxic likely secondary to aspiration. She was minimally responsive but was able to get permission for intubation and central line placement. Her peripheral IV was nonfunctional therefore central line was placed and patient was emergently intubated post line procedure. Follow-up chest x-ray revealed significant right lower lobe infiltrates likely aspiration. She is currently on low-dose norepinephrine. Subjective 07/16: Status post EGD today. This revealed gastritis. Normal esophagus and duodenum. MRI brain currently pending. Currently on low-dose norepinephrine at 7 g per minute. White Cell count currently 26,000. Objective Vital Signs Date Time Temp Pulse Resp B/P (MAP) Pulse Ox O2 Delivery O2 Flow Rate FiO2 07/16/17 12:01 99 40 07/16/17 12:00 98.3 72 15 122/65 (84) 07/16/17 07:00 Mechanical Ventilator 07/15/17 06:12 15.00 Intake and Output 07/16/17 07/16/17 07/17/17 08:00 16:00 00:00 Intake Total 705 ml 1250 ml Output Total 850 ml Balance -145 ml 1250 ml Result Diagram: 07/16/17 0520 07/16/17 0520 Other Results Microbiology Date/Time Source Procedure Growth Status 07/15/17 18:17 Blood Peripheral Aerobic Blood Culture - Preliminary NO GROWTH IN 1 DAY Resulted 07/15/17 18:17 Blood Peripheral Anaerobic Blood Culture - Preliminary NO GROWTH IN 1 DAY Resulted 07/15/17 14:30 Sputum Endotracheal Gram Stain - Final Resulted 07/15/17 14:30 Sputum Endotracheal Sputum Culture - Preliminary HEAVY GROWTH NORMAL RESPIRATORY KAYLEIGH... Resulted 07/15/17 10:00 Urine Catheterized Urine Legionella Antigen - Final PRESUMPTIVE NEGATIVE FOR LEGIONELLA P... Complete 07/15/17 10:00 Urine Catheterized Urine Streptococcus pneumoniae Antigen (M - Final PRESUMPTIVE NEGATIVE FOR STREPTOCOCCU... Complete Imaging Last Impressions Chest X-Ray 07/16/17 Signed Impressions: Service Date/Time: Sunday, July 16, 2017 09:20 - CONCLUSION: 1. COPD changes with right basilar effusion and consolidation concerning for pneumonia. The overall size of the area of effusion and consolidation has decreased when compared to prior exam. 2. The support equipment is in satisfactory position. Silvestre Sumner MD Barium Swallow X-Ray 07/14/17 Signed Impressions: Service Date/Time: Friday, July 14, 2017 11:58 - CONCLUSION: 1. There was penetration of barium into the airway with coating of the inferior aspect of the epiglottis but no definite aspiration. Rehabilitation swallow service would be indicated for further assessment. 2. No findings to indicate esophageal obstruction were identified. Silvestre Sumner MD Cervical Spine MRI 07/10/17 Signed Impressions: Service Date/Time: Monday, July 10, 2017 16:30 - CONCLUSION: Very large right paracentral disc herniation at C3-4 obliterating the right lateral recess and neural foramen Kristian Avery MD Head CT 07/09/171950 Signed Impressions: Service Date/Time: Sunday, July 09, 2017 20:45 - CONCLUSION: No acute disease. Kristian Fierro MD Cervical Spine CT 07/09/17 Signed Impressions: Service Date/Time: Sunday, July 09, 2017 20:45 - CONCLUSION: 1. Focal lucent lesion at the anterior-inferior aspect of the C3 vertebral body. Much of the anterior cortex over this region is missing. There is some fragmentation at the anterior-inferior cortex which may represent some minimal fracturing of the anterior-inferior aspect of the C3 vertebral body at the margin of this lucent mass. The remaining aspect of the C3 vertebral body is intact. 2. Right lateral recess mild disc protrusion at the C3-C4 level. There does appear to be increased soft tissue density in the anterior right lateral epidural space at this region and extending to the C2-3 level. This could be secondary to some degree of superior extrusion and/or some degree of accompanying hemorrhage. There does continue to be CSF around the cord at these levels. 3. Air within the epidural space and the prevertebral soft tissues likely from disruption of the C3-4 disc. 4. The cervical spine could be further evaluated with an MRI examination with and without contrast. The above information was relayed to Dr. Portillo by telephone. Kristian Fierro MD CT Angiography 07/09/17 0000 Signed Impressions: Service Date/Time: Sunday, July 09, 2017 23:22 - CONCLUSION: 1. No pulmonary embolus. 2. Suspected pulmonary artery hypertension. 3. Mild to moderate emphysema. 4. Patchy bilateral infiltrate including bilateral nodular areas which are most likely infectious or inflammatory. Followup noncontrast chest CT is recommended in approximately 3 months. The nonspecific mildly enlarged right hilar lymph node should be rechecked at that time as well. 5. Tiny pericardial effusion. Kristian Abraham MD Objective Remarks GENERAL: 56-year-old female, critically ill currently orotracheally intubated SKIN: Cool and dry. Significant ecchymoses bilateral upper extremities. HEAD: Atraumatic. Normocephalic. EYES: Right pupil was 4 mm and reactive. Left pupil is 5 mm and reactive. No scleral icterus. No injection or drainage. ENT: No nasal bleeding or discharge. Mucous membranes pink and moist. NECK: Trachea midline. No JVD. CARDIOVASCULAR: Tachycardic, RR. S1, S2. No S4. No S3. 2/6 systolic murmur best appreciated in the left lower sternal border. RESPIRATORY: Breath sounds appreciated in the right lower lobe. No wheezing. Symmetrical excursion. GASTROINTESTINAL: Abdomen soft, non-tender, scaphoid. Hypoactive bowel sounds are appreciated.. MUSCULOSKELETAL: Extremities without significant peripheral edema. Ecchymoses at site of left upper extremity BP NEUROLOGICAL: Prior to intubation, awake and able to follow commands. Moves all 4 extremities spontaneously. A/P Assessment and Plan Neuro/Psych: Depression/anxiety Seizure disorder NOS EtOH abuse C3/4 disc protrusion Patient is currently on propofol/fentanyl drips for sedation/analgesia while intubated Goal of RA SS -2 to -1 Daily sedation vacation Patient is currently on thiamine, folate and multivitamin for EtOH abuse Patient was evaluated by Dr. Kearney/psychiatry this admission. Recommended supportive care. Possibly Maxalt/Remeron for dietary stimulation C-spine revealed C3/4 disc protrusion with mild foraminal protrusion without spinal cord compression. Likely radiation therapy induced. Evaluated by neurosurgery/Dr. Love. No intervention planned at this time MRI brain currently pending CV: Sepsis Valvular Heart disease NOS Patient is currently on norepinephrine 7 g per minute to maintain mean arterial pressure greater than equal to 65 Status post 1 L normal saline 07/15 Check CVP currently 11 See infectious disease for antibiotic coverage Serial lactates Check limited 2-D echocardiogram to evaluate heart valves. Resp: Acute hypoxic hypercapnic respiratory failure likely secondary to aspiration pneumonia COPD [facility] 15/10/11/39 Ventilator bundle Albuterol/ipratropium aerosols every 6 hours with albuterol aerosols every 2 hours as needed for dyspnea Spontaneous breathing trials when clinically indicated Follow-up post intubation ABG and chest x-ray CTA chest revealed moderate emphysema. Nodular densities recommended 3 month follow-up CT . GI: Dysphagia Severe protein calorie malnutrition NG tube has been placed currently to low intermittent wall suction Start tube feedings per dietary's recommendations. Restart Jevity 1.5 goal 40 cc an hour lansoprazole for GI prophylaxis Docusate sodium liquid 100 mg twice a day for bowel regimen Gastroenterology is following EGD reveals gastritis. Normal esophagus and duodenum. Modified barium swallow showed penetration to the class but no suzanne aspiration. No signs of esophageal blockage : Mckee catheter has been placed for accurate I's and O's in a critically ill patient Endo: History of hypothyroidism Check TSH/free T4. TSH was normal. Free T4's elevated. Sliding-scale insulin with Accu-Cheks every 6 hours to maintain euglycemia Novulin R moderate regimen Renal: Creatinine currently within normal limits Monitor urine output Accurate I's and O's Currently on normal saline at 84 cc an hour Heme: Leukocytosis Macrocytosis Monitor CBC daily. Follow trends ID: Escherichia coli/Pseudomonas urinary tract infection Patient is currently on levofloxacin, aztreonam and vancomycin Pertinent cultures 07/13 - influenza a and b 07/09 - urine - E coli/Pseudomonas aeruginosa 07/09 - blood cultures 2 - no growth to date Infectious disease is following FEN: Hyponatremia Replace electrolytes as clinically indicated per ICU electrolyte protocol MSK: General debilitation PT/OT evaluate and treat Access - Utilize left IJ CVL day 2 placed 07/15/2017 Prophylaxis - GI - lansoprazole - DVT - SCD/enoxaparin Critical Care: The total critical care time was 35 minutes. Time to perform other separately billable procedures was not included in the critical care time. Jace Yang MD Jul 16, 2017 17:37
[2017-07-16] MEDS: ENOXAPARIN SODIUM 30 MG/0.3 ML SYRINGE SQ SCH (18:45)
[2017-07-17] VITALS (19 sets, daily range): BP systolic 109–123; BP diastolic 57–73; PULSE 62–88; RESP 8–18; TEMP 96.9–98.8; O2SAT 99–100
[2017-07-17] MEDS: metroNIDAZOLE 500 MG INJ 100 ML IV SCH ×3 (00:15→16:17)
[2017-07-17] MEDS: AZTREONAM INJ 2,000 MG in SODIUM CHLORIDE 0.9% INJ 100 ML IV SCH ×3 (00:15→17:20)
[2017-07-17] MEDS: RESP: ALBUTEROL 2.5 MG/IPRATROPIUM 0.5 MG NEB (SCH) NEB ×4 (03:24→20:37)
[2017-07-17] MEDS: PROPOFOL 1000 MG/100 ML INJ 100 ML IV PRN ×3 (03:31→21:04)
[2017-07-17] MEDS: INSULIN NovoLIN REGULAR SUPPLEMENTAL SCALE SQ SCH ×4 (05:23→17:20)
[2017-07-17 05:31] LABS: BASOPHIL % 0.1 % (0.0-2.0); HEMATOCRIT 30.4 % (35.0-46.0); HEMO FLAGS DIFF FINAL; LYMPH % 1.2 % (9.0-44.0); LYMPHOCYTE # 0.3 TH/MM3 (1.0-4.8); MEAN CELL VOLUME 107.4 FL (80.0-100.0); MEAN CORPUSCULAR HEMOGLOBIN 35.7 PG (27.0-34.0); MEAN CORPUSCULAR HGB CONC 33.2 % (32.0-36.0); NEUT % 93.7 % (16.0-70.0); PLATELET COUNT 380 TH/MM3 (150-450); RED BLOOD COUNT 2.83 MIL/MM3 (4.00-5.30); RED CELL DISTRIBUTION WIDTH 14.9 % (11.6-17.2); WHITE BLOOD COUNT 22.4 TH/MM3 (4.0-11.0)
[2017-07-17] MEDS: ARTIFICIAL TEARS OPTH SOLN 15 ML BTL EACH EYE SCH ×3 (05:35→21:06)
[2017-07-17] MEDS: methylPREDNISolone SOD SUCC 40 MG/1 ML VIAL IV PUSH SCH ×2 (05:35→21:05)
[2017-07-17] MEDS: fentaNYL DRIP 250 ML IV PRN (05:45)
[2017-07-17 06:01] LABS: ALKALINE PHOSPHATASE 106 U/L (45-117); ALT (GPT) 21 U/L (10-53); ANION GAP 9 MEQ/L (5-15); AST (GOT) 20 U/L (15-37); BICARBONATE 23.5 MEQ/L (21.0-32.0); BLOOD UREA NITROGEN 8 MG/DL (7-18); CHLORIDE 111 MEQ/L (98-107); GLOMERULAR FILTRATION RATE 169 ML/MIN (>89); MAGNESIUM 1.8 MG/DL (1.5-2.5); POTASSIUM 3.3 MEQ/L (3.5-5.1); SODIUM (NA) 143 MEQ/L (136-145); TOTAL BILIRUBIN ADULT 0.2 MG/DL (0.2-1.0)
[2017-07-17] MEDS: DOCUSATE SODIUM 100 MG/10 ML UDC PO SCH ×2 (08:25→21:04)
[2017-07-17] MEDS: THIAMINE HCL 100 MG TAB PO SCH (08:25)
[2017-07-17] MEDS: LANSOPRAZOLE SOLUTAB 30 MG TAB NG SCH (08:25)
[2017-07-17] MEDS: CHLORHEXIDINE 0.12% (ORAL KIT) 15 ML CUP MT SCH ×2 (08:26→21:06)
[2017-07-17] MEDS: SODIUM CHLORIDE 0.9% FLUSH 10 ML FLUSH IV FLUSH SCH ×3 (08:27→21:05)
[2017-07-17] MEDS: LEVOFLOXACIN 750 MG PREMIX INJ 150 ML IV SCH (08:38)
[2017-07-17] MEDS: RESP: BUDESONIDE 0.5 MG/2 ML NEB NEB SCH ×2 (08:44→20:37)
[2017-07-17] MEDS: POTASSIUM PHOSPHATE INJ 30 MMOL in SODIUM CHLOR 0.9% 250 ML INJ 250 ML IV PRN ×2 (10:20→13:30)
[2017-07-17] MEDS: SODIUM CHLOR 0.9% 1000 ML INJ 1,000 ML IV SCH (10:21)
[2017-07-17] MEDS ORDERED: POTASSIUM CHLORIDE 20 MEQ PWD PACKET NG ONE (13:15)
--- NOTE | 2017-07-17 13:17 | RADRPT ---
EXAM DATE/TIME: 07/17/2017 12:31 [facility] COMPARISON: CT BRAIN W/O CONTRAST, July 09, 2017, 20:45. INDICATIONS : Dysphasia. Weakness. MEDICAL HISTORY : Seizures. Carcinoma, esophageal. Hepatitis C. COPD. SURGICAL HISTORY : Hysterectomy. Cholecystectomy. Left wrist. Shoulder. Throat cancer removed. ENCOUNTER: Subsequent ACUITY: 1 week PAIN SCORE: Nonresponsive. LOCATION: head. TECHNIQUE: Multiplanar, multisequence MRI of the brain was performed without contrast. FINDINGS: CEREBRUM: The ventricles are normal for age. No evidence of midline shift, mass lesion, hemorrhage or acute in farction. No extraaxial fluid collections are seen. The pituitary gland and suprasellar cistern are normal in configuration. WHITE MATTER: No significant signal abnormalities are seen in the white matter. POSTERIOR FOSSA: The cerebellum and brainstem are intact. The 4th ventricle is midline. The cerebellopontine angle is unremarkable. The cerebellar tonsils are normal in position. DIFFUSION IMAGING: No focal areas of restricted diffusion are seen. No evidence of acute infarction. EXTRACRANIAL: The visualized portions of the orbits and paranasal sinuses are unremarkable. Scattered fluid signal seen within the mastoid air cells bilaterally. Nasogastric tube observed traversing the left nasal ca vity. CONCLUSION: 1. No acute intracranial abnormality. 2. Scattered fluid signal throughout the mastoid air cells bilaterally. Clinical evaluation for any s igns of acute mastoiditis suggested. Michael Huitron Jr., MD on July 17, 2017 at 13:10 Board Certified Radiologist. This report was verified electronically.
[2017-07-17] MEDS: ALBUMIN 25% INJ 100 ML IV SCH (13:26)
--- NOTE | 2017-07-17 13:30 | HHI.CCPN ---
Subjective Remarks/Hospital Course This is a 56-year-old female. Date of admission 07/10/2017. Date of consult 07/13/2017. 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 Patient was admitted to [facility] from [facility] with chief complaints of neck pain and symptomatic hypotension. She was originally admitted under the hospitalist service. Evaluation include evaluation by neurosurgery for C3/4 disc protrusion. Changes on MRI were thought to be secondary to radiation therapy. There is no spinal cord compression or significant foraminal encroachment. Recommended conservative therapy. Patient was evaluated by gastroenterology for dysphagia. Modified barium swallow showed no aspiration. Patient was evaluated by psychiatry for depression. Dr. Kearney recommended supportive care. Patient was evaluated by infectious disease for urinary tract infection. Patient is currently on levofloxacin for Pseudomonas and Escherichia coli UTI. This a.m., patient became acutely hypoxic likely secondary to aspiration. She was minimally responsive but was able to get permission for intubation and central line placement. Her peripheral IV was nonfunctional therefore central line was placed and patient was emergently intubated post line procedure. Follow-up chest x-ray revealed significant right lower lobe infiltrates likely aspiration. She is currently on low-dose norepinephrine. 07/16: Status post EGD today. This revealed gastritis. Normal esophagus and duodenum. MRI brain currently pending. Currently on low-dose norepinephrine at 7 g per minute. White Cell count currently 26,000. Subjective 07/18: Afebrile. Status post MRI brain. Results currently pending. Continues on low-dose benefit for micrograms per minute. White cell count decreasing. FiO2 down to 40%. Follows commands on sedation vacation. Objective Vital Signs Date Time Temp Pulse Resp B/P (MAP) Pulse Ox O2 Delivery O2 Flow Rate FiO2 07/17/17 13:05 100 100 07/17/17 10:00 88 07/17/17 08:00 98.0 18 117/57 (77) 07/16/17 20:00 Mechanical Ventilator 07/15/17 06:12 15.00 Intake and Output 07/17/17 07/17/17 07/18/17 08:00 16:00 00:00 Intake Total 1060 ml 1350 ml Output Total 700 ml Balance 360 ml 1350 ml Result Diagram: 07/17/17 0515 07/17/17 0515 Other Results Microbiology Date/Time Source Procedure Growth Status 07/15/17 18:17 Blood Peripheral Aerobic Blood Culture - Preliminary NO GROWTH IN 2 DAYS Resulted 07/15/17 18:17 Blood Peripheral Anaerobic Blood Culture - Preliminary NO GROWTH IN 2 DAYS Resulted 07/15/17 14:30 Sputum Endotracheal Gram Stain - Final Resulted 07/15/17 14:30 Sputum Endotracheal Sputum Culture - Preliminary HEAVY GROWTH NORMAL RESPIRATORY KAYLEIGH... Resulted 07/15/17 10:00 Urine Catheterized Urine Legionella Antigen - Final PRESUMPTIVE NEGATIVE FOR LEGIONELLA P... Complete 07/15/17 10:00 Urine Catheterized Urine Streptococcus pneumoniae Antigen (M - Final PRESUMPTIVE NEGATIVE FOR STREPTOCOCCU... Complete Imaging Last Impressions Chest X-Ray 07/16/17 0000 Signed Impressions: Service Date/Time: Sunday, July 16, 2017 09:20 - CONCLUSION: 1. COPD changes with right basilar effusion and consolidation concerning for pneumonia. The overall size of the area of effusion and consolidation has decreased when compared to prior exam. 2. The support equipment is in satisfactory position. Silvestre Sumner MD Barium Swallow X-Ray 07/14/17 0000 Signed Impressions: Service Date/Time: Friday, July 14, 2017 11:58 - CONCLUSION: 1. There was penetration of barium into the airway with coating of the inferior aspect of the epiglottis but no definite aspiration. Rehabilitation swallow service would be indicated for further assessment. 2. No findings to indicate esophageal obstruction were identified. Silvestre Sumner MD Cervical Spine MRI 07/10/17 Signed Impressions: Service Date/Time: Monday, July 10, 2017 16:30 - CONCLUSION: Very large right paracentral disc herniation at C3-4 obliterating the right lateral recess and neural foramen Kristian Avery MD Head CT 07/09/171950 Signed Impressions: Service Date/Time: Sunday, July 09, 2017 20:45 - CONCLUSION: No acute disease. Kristian Fierro MD Cervical Spine CT 07/09/17 0000 Signed Impressions: Service Date/Time: Sunday, July 09, 2017 20:45 - CONCLUSION: 1. Focal lucent lesion at the anterior-inferior aspect of the C3 vertebral body. Much of the anterior cortex over this region is missing. There is some fragmentation at the anterior-inferior cortex which may represent some minimal fracturing of the anterior-inferior aspect of the C3 vertebral body at the margin of this lucent mass. The remaining aspect of the C3 vertebral body is intact. 2. Right lateral recess mild disc protrusion at the C3-C4 level. There does appear to be increased soft tissue density in the anterior right lateral epidural space at this region and extending to the C2-3 level. This could be secondary to some degree of superior extrusion and/or some degree of accompanying hemorrhage. There does continue to be CSF around the cord at these levels. 3. Air within the epidural space and the prevertebral soft tissues likely from disruption of the C3-4 disc. 4. The cervical spine could be further evaluated with an MRI examination with and without contrast. The above information was relayed to Dr. Portillo by telephone. Kristian Fierro MD CT Angiography 07/09/17 0000 Signed Impressions: Service Date/Time: Sunday, July 09, 2017 23:22 - CONCLUSION: 1. No pulmonary embolus. 2. Suspected pulmonary artery hypertension. 3. Mild to moderate emphysema. 4. Patchy bilateral infiltrate including bilateral nodular areas which are most likely infectious or inflammatory. Followup noncontrast chest CT is recommended in approximately 3 months. The nonspecific mildly enlarged right hilar lymph node should be rechecked at that time as well. 5. Tiny pericardial effusion. Kristian Abraham MD Objective Remarks GENERAL: 56-year-old female, critically ill currently orotracheally intubated SKIN: Cool and dry. Significant ecchymoses bilateral upper extremities. HEAD: Atraumatic. Normocephalic. EYES: Right pupil was 4 mm and reactive. Left pupil is 5 mm and reactive. No scleral icterus. No injection or drainage. ENT: No nasal bleeding or discharge. Mucous membranes pink and moist. NECK: Trachea midline. No JVD. CARDIOVASCULAR: Tachycardic, RR. S1, S2. No S4. No S3. 2/6 systolic murmur best appreciated in the left lower sternal border. RESPIRATORY: Breath sounds appreciated in the right lower lobe. No wheezing. Symmetrical excursion. GASTROINTESTINAL: Abdomen soft, non-tender, scaphoid. Hypoactive bowel sounds are appreciated.. MUSCULOSKELETAL: Extremities without significant peripheral edema. Ecchymoses at site of left upper extremity BP NEUROLOGICAL: Prior to intubation, awake and able to follow commands. Moves all 4 extremities spontaneously. Vascular Central Line Catheter: Yes Assessment to: Continue Date of Insertion: Jul 15, 2017 Line: Central Venous Catheter Side: Left Location: Internal, Jugular A/P Assessment and Plan Neuro/Psych: Depression/anxiety Seizure disorder NOS EtOH abuse C3/4 disc protrusion Patient is currently on propofol at 50 mcg/kg per minute/fentanyl drips it 100 grams an hour for sedation/analgesia while intubated Goal of RA SS -2 to -1 Daily sedation vacation Patient is currently on thiamine, folate and multivitamin for EtOH abuse Patient was evaluated by Dr. Kearney/psychiatry this admission. Recommended supportive care. Possibly Maxalt/Remeron for dietary stimulation C-spine revealed C3/4 disc protrusion with mild foraminal protrusion without spinal cord compression. Likely radiation therapy induced. Evaluated by neurosurgery/Dr. Love. No intervention planned at this time MRI brain completed 07/17. Results pending CV: Sepsis Valvular Heart disease NOS Patient is currently on norepinephrine 4 g per minute to maintain mean arterial pressure greater than equal to 65 Status post 1 L normal saline 07/15 Check CVP currently 11 See infectious disease for antibiotic coverage Check limited 2-D echocardiogram to evaluate heart valves. Resp: Acute hypoxic hypercapnic respiratory failure likely secondary to aspiration pneumonia COPD [facility] 15/450/10/11/39 Ventilator bundle Albuterol/ipratropium aerosols every 6 hours with albuterol aerosols every 2 hours as needed for dyspnea Spontaneous breathing trials when clinically indicated CTA chest revealed moderate emphysema. Nodular densities recommended 3 month follow-up CT . GI: Dysphagia Severe protein calorie malnutrition NG tube has been placed currently to low intermittent wall suction Start tube feedings per dietary's recommendations. Restart Jevity 1.5 goal 40 cc an hour lansoprazole for GI prophylaxis Docusate sodium liquid 100 mg twice a day for bowel regimen and added Senokot and MiraLAX Gastroenterology is following EGD reveals gastritis. Normal esophagus and duodenum. Modified barium swallow showed penetration to the class but no suzanne aspiration. No signs of esophageal blockage : Mckee catheter has been placed for accurate I's and O's in a critically ill patient Endo: History of hypothyroidism Check TSH/free T4. Sliding-scale insulin with Accu-Cheks every 6 hours to maintain euglycemia Novulin R moderate regimen Renal: Creatinine currently within normal limits Monitor urine output Accurate I's and O's Currently on normal saline at 84 cc an hour Heme: Leukocytosis Macrocytosis Monitor CBC daily. Follow trends ID: Escherichia coli/Pseudomonas urinary tract infection Patient is currently on levofloxacin, aztreonam and vancomycin Pertinent cultures 07/15- blood cultures - pending 07/13 - influenza a and b negative 07/09 - urine - E coli/Pseudomonas aeruginosa 07/09 - blood cultures 2 - no growth to date Infectious disease is following FEN: Hypophosphatemia Hypo-phosphatemia Replace electrolytes as clinically indicated per ICU electrolyte protocol and 30 mmol K-Phos 1 now. MSK: General debilitation PT/OT evaluate and treat Access - Utilize left IJ CVL day 2 placed 07/15/2017 Prophylaxis - GI - lansoprazole - DVT - SCD/enoxaparin Critical Care: The total critical care time was 35 minutes. Time to perform other separately billable procedures was not included in the critical care time. Jace Yang MD Jul 17, 2017 13:30
[2017-07-17] MEDS ORDERED: POLYETHYLENE GLYCOL 17 GM PKG PO ONE (13:45)
--- NOTE | 2017-07-17 13:51 | HHI.IDPN ---
Subjective Subjective Remarks is a 56 y/o CF with hx ETOH abuse, vocal cord ca s/p radiation who presented from [facility] with hypoxemia. She says she was smoking too much, getting drunk and falling down. After being at the center for 2 days she stood up and got dizzy. She was found to have bilat PNA. She has had difficulty swallowing for 11 years. She c/o of intermittent bolus sensation, regurgitation, and odynophagia. Has with liquids and solids. Never had EGD. Had colonoscopy 4-5 years ago in [facility], says findings were polyps. ID was consulted for evaluation and Mment of Bilateral Pneumonia, UTI. Overnight events reviewed Remains intubated. On Levophed 4 mics. Had an MRI brain earlier. No fever No rash No diarrhea Antibiotics I attest I obtained, reviewed or updated home meds and current meds(name, dose, freq and route of meds) Levaquin IV Aztreonam IV Flagyl IV Lines Line sites with no e.o infection Past Medical History reviewed Allergies: Coded Allergies: penicillin G (Verified Allergy, Severe, hives, 07/09/17) Objective . Vital Signs Date Time Temp Pulse Resp B/P (MAP) Pulse Ox O2 Delivery O2 Flow Rate FiO2 07/17/17 13:05 100 100 07/17/17 11:55 99 40 07/17/17 10:00 88 07/17/17 08:44 99 40 07/17/17 08:00 40 07/17/17 08:00 70 07/17/17 08:00 98.0 70 18 117/57 (77) 100 07/17/17 06:00 69 07/17/17 04:44 99 40 07/17/17 04:00 96.9 70 15 114/64 (81) 100 07/17/17 04:00 40 07/17/17 04:00 70 07/17/17 02:00 62 07/17/17 01:11 99 40 07/17/17 00:00 69 07/17/17 00:00 40 07/17/17 00:00 97.4 69 15 123/73 (90) 99 07/16/17 22:41 72 105/65 07/16/17 22:00 80 07/16/17 20:00 66 07/16/17 20:00 99 Mechanical Ventilator 40 07/16/17 20:00 40 07/16/17 20:00 97.8 66 15 113/59 (77) 99 07/16/17 19:53 99 40 07/16/17 18:00 71 07/16/17 17:30 100 40 07/16/17 16:00 97.9 84 15 135/72 (93) 99 07/16/17 16:00 84 07/16/17 16:00 40 07/16/17 14:00 73 07/17/17 07/17/17 07/18/17 15:00 23:00 07:00 Intake Total 1350 ml Balance 1350 ml IV Total 1350 ml . Laboratory Tests Test 07/16/17 05:20 07/17/17 05:15 White Blood Count 26.5 TH/MM3 22.4 TH/MM3 Red Blood Count 3.02 MIL/MM3 2.83 MIL/MM3 Hemoglobin 10.8 GM/DL 10.1 GM/DL Hematocrit 32.2 % 30.4 % Mean Corpuscular Volume 106.7 FL 107.4 FL Mean Corpuscular Hemoglobin 35.9 PG 35.7 PG Mean Corpuscular Hemoglobin Concent 33.6 % 33.2 % Red Cell Distribution Width 14.9 % 14.9 % Platelet Count 410 TH/MM3 380 TH/MM3 Mean Platelet Volume 7.6 FL 7.8 FL Neutrophils (%) (Auto) 93.6 % 93.7 % Lymphocytes (%) (Auto) 0.8 % 1.2 % Monocytes (%) (Auto) 5.0 % 5.0 % Eosinophils (%) (Auto) 0.0 % 0.0 % Basophils (%) (Auto) 0.6 % 0.1 % Neutrophils # (Auto) 24.8 TH/MM3 21.0 TH/MM3 Lymphocytes # (Auto) 0.2 TH/MM3 0.3 TH/MM3 Monocytes # (Auto) 1.3 TH/MM3 1.1 TH/MM3 Eosinophils # (Auto) 0.0 TH/MM3 0.0 TH/MM3 Basophils # (Auto) 0.1 TH/MM3 0.0 TH/MM3 CBC Comment DIFF FINAL DIFF FINAL Differential Comment Laboratory Tests Test 07/16/17 05:20 07/17/17 05:15 Blood Urea Nitrogen 7 MG/DL 8 MG/DL Creatinine 0.38 MG/DL 0.39 MG/DL Random Glucose 192 MG/DL 180 MG/DL Total Protein 6.3 GM/DL 5.5 GM/DL Albumin 1.9 GM/DL 1.7 GM/DL Calcium Level 8.5 MG/DL 8.1 MG/DL Phosphorus Level 1.5 MG/DL 2.3 MG/DL Magnesium Level 1.9 MG/DL 1.8 MG/DL Alkaline Phosphatase 126 U/L 106 U/L Aspartate Amino Transf (AST/SGOT) 31 U/L 20 U/L Alanine Aminotransferase (ALT/SGPT) 27 U/L 21 U/L Total Bilirubin 0.4 MG/DL 0.2 MG/DL Sodium Level 136 MEQ/L 143 MEQ/L Potassium Level 3.7 MEQ/L 3.3 MEQ/L Chloride Level 103 MEQ/L 111 MEQ/L Carbon Dioxide Level 25.1 MEQ/L 23.5 MEQ/L Anion Gap 8 MEQ/L 9 MEQ/L Estimat Glomerular Filtration Rate 174 ML/MIN 169 ML/MIN Microbiology Date/Time Source Procedure Growth Status 07/15/17 18:17 Blood Peripheral Aerobic Blood Culture - Preliminary NO GROWTH IN 2 DAYS Resulted 07/15/17 18:17 Blood Peripheral Anaerobic Blood Culture - Preliminary NO GROWTH IN 2 DAYS Resulted 07/15/17 18:12 Blood Peripheral Aerobic Blood Culture - Preliminary NO GROWTH IN 2 DAYS Resulted 07/15/17 18:12 Blood Peripheral Anaerobic Blood Culture - Preliminary NO GROWTH IN 2 DAYS Resulted 07/15/17 14:30 Sputum Endotracheal Gram Stain - Final Resulted 07/15/17 14:30 Sputum Endotracheal Sputum Culture - Preliminary HEAVY GROWTH NORMAL RESPIRATORY KAYLEIGH... Resulted 07/15/17 10:00 Urine Catheterized Urine Legionella Antigen - Final PRESUMPTIVE NEGATIVE FOR LEGIONELLA P... Complete 07/15/17 10:00 Urine Catheterized Urine Streptococcus pneumoniae Antigen (M - Final PRESUMPTIVE NEGATIVE FOR STREPTOCOCCU... Complete Imaging Last Impressions Chest X-Ray 07/15/17 0739 Signed Impressions: Service Date/Time: Saturday, July 15, 2017 07:40 - CONCLUSION: Right basilar consolidation with volume loss. Jonny Benton MD Barium Swallow X-Ray 07/14/17 0000 Signed Impressions: Service Date/Time: Friday, July 14, 2017 11:58 - CONCLUSION: 1. There was penetration of barium into the airway with coating of the inferior aspect of the epiglottis but no definite aspiration. Rehabilitation swallow service would be indicated for further assessment. 2. No findings to indicate esophageal obstruction were identified. Silvestre Sumner MD Cervical Spine MRI 07/10/17 Signed Impressions: Service Date/Time: Monday, July 10, 2017 16:30 - CONCLUSION: Very large right paracentral disc herniation at C3-4 obliterating the right lateral recess and neural foramen Kristian Avery MD Head CT 07/09/171950 Signed Impressions: Service Date/Time: Sunday, July 09, 2017 20:45 - CONCLUSION: No acute disease. Kristian Fierro MD Cervical Spine CT 07/09/17 Signed Impressions: Service Date/Time: Sunday, July 09, 2017 20:45 - CONCLUSION: 1. Focal lucent lesion at the anterior-inferior aspect of the C3 vertebral body. Much of the anterior cortex over this region is missing. There is some fragmentation at the anterior-inferior cortex which may represent some minimal fracturing of the anterior-inferior aspect of the C3 vertebral body at the margin of this lucent mass. The remaining aspect of the C3 vertebral body is intact. 2. Right lateral recess mild disc protrusion at the C3-C4 level. There does appear to be increased soft tissue density in the anterior right lateral epidural space at this region and extending to the C2-3 level. This could be secondary to some degree of superior extrusion and/or some degree of accompanying hemorrhage. There does continue to be CSF around the cord at these levels. 3. Air within the epidural space and the prevertebral soft tissues likely from disruption of the C3-4 disc. 4. The cervical spine could be further evaluated with an MRI examination with and without contrast. The above information was relayed to Dr. Portillo by telephone. Kristian Fierro MD CT Angiography 07/09/17 Signed Impressions: Service Date/Time: Sunday, July 09, 2017 23:22 - CONCLUSION: 1. No pulmonary embolus. 2. Suspected pulmonary artery hypertension. 3. Mild to moderate emphysema. 4. Patchy bilateral infiltrate including bilateral nodular areas which are most likely infectious or inflammatory. Followup noncontrast chest CT is recommended in approximately 3 months. The nonspecific mildly enlarged right hilar lymph node should be rechecked at that time as well. 5. Tiny pericardial effusion. Kristian Abraham MD Physical Exam GENERAL: Thin built poorly-nourished, well-developed patient, in no apparent distress. SKIN: No rashes, ecchymoses or lesions. Cool and dry. HEAD: Atraumatic. Normocephalic. No temporal or scalp tenderness. EYES: Pupils equal round and reactive. Extraocular motions intact. No scleral icterus. No injection or drainage. ENT: Intubated. NECK: Trachea midline. Supple, nontender, no meningeal signs. CARDIOVASCULAR: Regular rate and rhythm without murmurs, gallops, or rubs. RESPIRATORY: Clear to auscultation. Breath sounds equal bilaterally. No wheezes , rales, or rhonchi. GASTROINTESTINAL: Abdomen soft, non-tender, nondistended. MUSCULOSKELETAL: Extremities without clubbing, cyanosis, or edema. No joint tenderness, effusion, or edema noted. No calf tenderness. Negative Homans sign bilaterally. NEUROLOGICAL: Sedated. Moves extremities. Psych: anxious, cursing at times. IV line sites with no e.o infection. Assessment & Plan Remarks Aspiration Pneumonia/HCAP Acute resp failure E.coli PSAE UTI vs colonization Alcoholism Weight loss Dysphagia Prior Head neck cancer s/p radiation C3-4 large disc herniation Depression Recs: Continue Azactam IV Continue Flagyl IV (plan for GI procedure will reassess after the procedure to change to oral) Continue Levaquin IV Appreciate GI consult. Follow cultures Follow clinically. d/w and RN. Dolores Devlin MD Jul 17, 2017 13:51
--- NOTE | 2017-07-17 16:27 | HHI.GIFU ---
Subjective Remarks Sedated on vent. Does wake up, but very lethargic. Went for MRI today. Tolerating TF. Objective Vitals I&O Vital Signs Date Time Temp Pulse Resp B/P (MAP) Pulse Ox O2 Delivery O2 Flow Rate FiO2 07/17/17 15:52 100 40 07/17/17 15:52 40 07/17/17 14:00 74 07/17/17 13:05 100 100 07/17/17 12:00 98.1 76 15 109/63 (78) 99 07/17/17 12:00 76 07/17/17 12:00 40 07/17/17 11:55 99 40 07/17/17 10:00 88 07/17/17 08:44 99 40 07/17/17 08:00 40 07/17/17 08:00 70 07/17/17 08:00 98.0 70 18 117/57 (77) 100 07/17/17 06:00 69 07/17/17 04:44 99 40 07/17/17 04:00 96.9 70 15 114/64 (81) 100 07/17/17 04:00 40 07/17/17 04:00 70 07/17/17 02:00 62 07/17/17 01:11 99 40 07/17/17 00:00 69 07/17/17 00:00 40 07/17/17 00:00 97.4 69 15 123/73 (90) 99 07/16/17 22:41 72 105/65 07/16/17 22:00 80 07/16/17 20:00 66 07/16/17 20:00 99 Mechanical Ventilator 40 07/16/17 20:00 40 07/16/17 20:00 97.8 66 15 113/59 (77) 99 07/16/17 19:53 99 40 07/16/17 18:00 71 07/16/17 17:30 100 40 I/O 07/16/17 07/16/17 07/16/17 07/17/17 07/17/17 07/17/17 06:59 14:59 22:59 06:59 14:59 22:59 Intake Total 705 ml 1250 ml 1912 ml 1030 ml 1464 ml Output Total 850 ml 900 ml 700 ml Balance -145 ml 1250 ml 1012 ml 330 ml 1464 ml IV Total 450 ml 1250 ml 1800 ml 550 ml 1434 ml Tube Feeding 225 ml 32 ml 380 ml Tube Irrigant 30 ml Other 80 ml 100 ml 30 ml Output Urine Total 850 ml 900 ml 700 ml # Bowel Movements 0 0 0 Laboratory Laboratory Tests Test 07/17/17 05:15 White Blood Count 22.4 Red Blood Count 2.83 Hemoglobin 10.1 Hematocrit 30.4 Mean Corpuscular Volume 107.4 Mean Corpuscular Hemoglobin 35.7 Mean Corpuscular Hemoglobin Concent 33.2 Red Cell Distribution Width 14.9 Platelet Count 380 Mean Platelet Volume 7.8 Neutrophils (%) (Auto) 93.7 Lymphocytes (%) (Auto) 1.2 Monocytes (%) (Auto) 5.0 Eosinophils (%) (Auto) 0.0 Basophils (%) (Auto) 0.1 Neutrophils # (Auto) 21.0 Lymphocytes # (Auto) 0.3 Monocytes # (Auto) 1.1 Eosinophils # (Auto) 0.0 Basophils # (Auto) 0.0 CBC Comment DIFF FINAL Differential Comment Blood Urea Nitrogen 8 Creatinine 0.39 Random Glucose 180 Total Protein 5.5 Albumin 1.7 Calcium Level 8.1 Phosphorus Level 2.3 Magnesium Level 1.8 Alkaline Phosphatase 106 Aspartate Amino Transf (AST/SGOT) 20 Alanine Aminotransferase (ALT/SGPT) 21 Total Bilirubin 0.2 Sodium Level 143 Potassium Level 3.3 Chloride Level 111 Carbon Dioxide Level 23.5 Anion Gap 9 Estimat Glomerular Filtration Rate 169 Date/Time Source Procedure Growth Status 07/15/17 18:17 Blood Peripheral Aerobic Blood Culture - Preliminary NO GROWTH IN 2 DAYS Resulted 07/15/17 18:17 Blood Peripheral Anaerobic Blood Culture - Preliminary NO GROWTH IN 2 DAYS Resulted 07/15/17 14:30 Sputum Endotracheal Gram Stain - Final Complete 07/15/17 14:30 Sputum Endotracheal Sputum Culture - Final HEAVY GROWTH NORMAL RESPIRATORY KAYLEIGH Complete 07/15/17 10:00 Urine Catheterized Urine Legionella Antigen - Final PRESUMPTIVE NEGATIVE FOR LEGIONELLA P... Complete 07/15/17 10:00 Urine Catheterized Urine Streptococcus pneumoniae Antigen (M - Final PRESUMPTIVE NEGATIVE FOR STREPTOCOCCU... Complete Imaging Last Impressions Brain MRI 07/17/17 0000 Signed Impressions: Service Date/Time: Monday, July 17, 2017 12:31 - CONCLUSION: 1. No acute intracranial abnormality. 2. Scattered fluid signal throughout the mastoid air cells bilaterally. Clinical evaluation for any signs of acute mastoiditis suggested. Michael Huitron Jr., MD Chest X-Ray 07/16/17 0000 Signed Impressions: Service Date/Time: Sunday, July 16, 2017 09:20 - CONCLUSION: 1. COPD changes with right basilar effusion and consolidation concerning for pneumonia. The overall size of the area of effusion and consolidation has decreased when compared to prior exam. 2. The support equipment is in satisfactory position. Silvestre Sumner MD Barium Swallow X-Ray 07/14/17 Signed Impressions: Service Date/Time: Friday, July 14, 2017 11:58 - CONCLUSION: 1. There was penetration of barium into the airway with coating of the inferior aspect of the epiglottis but no definite aspiration. Rehabilitation swallow service would be indicated for further assessment. 2. No findings to indicate esophageal obstruction were identified. Silvestre Sumner MD Cervical Spine MRI 07/10/17 Signed Impressions: Service Date/Time: Monday, July 10, 2017 16:30 - CONCLUSION: Very large right paracentral disc herniation at C3-4 obliterating the right lateral recess and neural foramen Kristian Avery MD Head CT 07/09/171950 Signed Impressions: Service Date/Time: Sunday, July 09, 2017 20:45 - CONCLUSION: No acute disease. Kristian Fierro MD Cervical Spine CT 07/09/17 Signed Impressions: Service Date/Time: Sunday, July 09, 2017 20:45 - CONCLUSION: 1. Focal lucent lesion at the anterior-inferior aspect of the C3 vertebral body. Much of the anterior cortex over this region is missing. There is some fragmentation at the anterior-inferior cortex which may represent some minimal fracturing of the anterior-inferior aspect of the C3 vertebral body at the margin of this lucent mass. The remaining aspect of the C3 vertebral body is intact. 2. Right lateral recess mild disc protrusion at the C3-C4 level. There does appear to be increased soft tissue density in the anterior right lateral epidural space at this region and extending to the C2-3 level. This could be secondary to some degree of superior extrusion and/or some degree of accompanying hemorrhage. There does continue to be CSF around the cord at these levels. 3. Air within the epidural space and the prevertebral soft tissues likely from disruption of the C3-4 disc. 4. The cervical spine could be further evaluated with an MRI examination with and without contrast. The above information was relayed to Dr. Portillo by telephone. Kristian Fierro MD CT Angiography 07/09/17 0000 Signed Impressions: Service Date/Time: Sunday, July 09, 2017 23:22 - CONCLUSION: 1. No pulmonary embolus. 2. Suspected pulmonary artery hypertension. 3. Mild to moderate emphysema. 4. Patchy bilateral infiltrate including bilateral nodular areas which are most likely infectious or inflammatory. Followup noncontrast chest CT is recommended in approximately 3 months. The nonspecific mildly enlarged right hilar lymph node should be rechecked at that time as well. 5. Tiny pericardial effusion. Kristian Abraham MD Physical Exam HEENT: Normocephalic; atraumatic; no jaundice. CHEST: OETT to vent. Diminished bases CARDIAC: RRR ABDOMEN: Soft, nondistended, nontender; no hepatosplenomegaly; bowel sounds are present in all four quadrants. NGT with TF EXTREMITIES: BUE edematous SKIN: Normal; no rash; no jaundice. MIGRATION SPECIALIST: Lethargic, opens eyes to name, but drifts back to sleep. Assessment and Plan Plan ASSESSMENT - Dysphagia. Pt c/o intermittent bolus sensation, odynophagia, regurgitation foods solid and liquid for 11 years, hx vocal chord ca, s/p radiation S/P ST eval who recommended mech. soft and thin liquids. Barium swallow ( 07/14)---> penetration of barium into the airway with coating the inferior aspect of the epiglottis but no definite aspiration. No evidence of esophageal obstruction. EGD (07/16/17)---> 1. The esophagus appeared normal 2. There was erythematous gastritis in the gastric antrum; biopsy was performed 3. Normal duodenal mucosa in the bulb and second portion of the duodenum 4. Retroflexed views revealed no abnormalities. Pathology pending. PPI (prevacid). Tolerating TF. MRI (07/17/17)--> No acute intracranial abnormality, scattered fluid signal throughout the mastoid air cells bilaterally. Clinical evaluation for any signs of acute mastoiditis suggested. Would benefit from modified barium swallow once extubated. Table Keeper recommends Jevity 1.5 at 45cc/hr - Abnormal weight loss. - Respiratory failure, Aspiration pneumonia, COPD/Emphysema. Legionella ag pending, streptococcus pneumoniae pending. BCx no growth 5 days. Vent per CCM. ID following. Flagyl, Azactam, Levaquin - UTI with E. Coli, PSAE. Abx per ID - Depression. per psych. - Hx of head and neck cancer, s/p radiation. - Hx Hepatitis C, unclear if this was treated or not. PLAN - Jevity 1.5 at 45cc/hr - Await pathology - Cont. Prevacid - Consider MBS once extubated, had barium swallow as above - Supportive care - Further recommendations to follow based on results of above - Pt seen and examined by Dr. Zepeda and myself and this note is written on his behalf Padmini Blevins Jul 17, 2017 16:27
[2017-07-17] MEDS ORDERED: INFLUENZA VIRUS VACCINE (QUADRIVALENT) 0.5 ML SYR IM ONE (16:30)
--- NOTE | 2017-07-17 17:15 | ECHRPT ---
Indication: EF CHF CONCLUSIONS Normal left ventricular size. Wall thickness is normal. The left ventricular systolic function is normal with an estimated ejection fraction of 55%. The right ventricle is mildly dilated. The right atrial size is mildly dilated. Aortic valve sclerosis is present. There is moderate tricuspid regurgitation. There is estimated [id number] pulmonary hypertension present ( 67mmHg). BP: 81 / 44 HR: 114 Rhythm: Technical Quality: FINDINGS LEFT VENTRICLE Normal left ventricular size. Wall thickness is normal. The left ventricular systolic function is normal with an estimated ejection fraction of 55%. RIGHT VENTRICLE The right ventricle is mildly dilated. LEFT ATRIUM The left atrial size is normal. RIGHT ATRIUM The right atrial size is mildly dilated. ATRIAL SEPTUM Normal atrial septal thickness without atrial level shunting by limited color doppler interrogation. AORTA The aortic root and proximal ascending aorta are normal in size on limited imaging. MITRAL VALVE Structurally normal mitral valve. No mitral valve stenosis or regurgitation. AORTIC VALVE Aortic valve sclerosis is present. TRICUSPID VALVE There is moderate tricuspid regurgitation. There is estimated poyiqnpn-vu-vejcdm pulmonary hypertension present ( 67mmHg). PULMONARY VALVE The pulmonary valve is not well visualized. VESSELS The inferior vena cava is normal in size. PERICARDIUM No pericardial effusion. Gavin Richardson MD, FACC (Electronically Signed) Final Date:17 July 2017 17:14
[2017-07-17] MEDS: ENOXAPARIN SODIUM 30 MG/0.3 ML SYRINGE SQ SCH (17:20)
[2017-07-17] MEDS: SENNOSIDES SYRUP 8.8 MG/5 ML CUP PO SCH (21:05)
[2017-07-18] VITALS (21 sets, daily range): BP systolic 96–124; BP diastolic 53–62; PULSE 70–102; RESP 15–25; TEMP 97.9–98.8; O2SAT 93–100
[2017-07-18] MEDS: metroNIDAZOLE 500 MG INJ 100 ML IV SCH ×3 (00:28→15:39)
[2017-07-18] MEDS: AZTREONAM INJ 2,000 MG in SODIUM CHLORIDE 0.9% INJ 100 ML IV SCH ×3 (01:20→17:54)
[2017-07-18] MEDS: ALBUMIN 25% INJ 100 ML IV SCH ×2 (02:47→14:05)
[2017-07-18] MEDS: RESP: ALBUTEROL 2.5 MG/IPRATROPIUM 0.5 MG NEB (SCH) NEB ×4 (04:27→20:56)
[2017-07-18] MEDS: ARTIFICIAL TEARS OPTH SOLN 15 ML BTL EACH EYE SCH ×3 (05:30→22:00)
[2017-07-18] MEDS: INSULIN NovoLIN REGULAR SUPPLEMENTAL SCALE SQ SCH ×4 (06:00→18:00)
--- NOTE | 2017-07-18 06:06 | RADRPT ---
EXAM DATE/TIME: 07/18/2017 05:41 [facility] COMPARISON: CHEST SINGLE AP, July 16, 2017, 9:20. INDICATIONS : Shortness of breath MEDICAL HISTORY : Chronic obstructive pulmonary disease. Cancer of vocal cords, right side SURGICAL HISTORY : Hysterectomy. Cholecystectomy ENCOUNTER: Subsequent ACUITY: 1 week PAIN SCORE: Non-responsive. LOCATION: Bilateral chest FINDINGS: Endotracheal tube, nasogastric tube and left neck central line are stable in good position. Hazy righ t base pleural-parenchymal opacity is grossly unchanged. Accounting for rotation, cardiac contours ar e stable. CONCLUSION: No significant interval change Kristian Avery MD on July 18, 2017 at 6:03 Board Certified Radiologist. This report was verified electronically.
[2017-07-18] MEDS: fentaNYL DRIP 250 ML IV PRN (06:43)
[2017-07-18] MEDS: CHLORHEXIDINE 0.12% (ORAL KIT) 15 ML CUP MT SCH ×2 (08:00→19:55)
[2017-07-18] MEDS: RESP: BUDESONIDE 0.5 MG/2 ML NEB NEB SCH ×2 (08:07→20:56)
[2017-07-18] MEDS: SODIUM CHLORIDE 0.9% FLUSH 10 ML FLUSH IV FLUSH SCH ×3 (08:25→19:54)
[2017-07-18] MEDS: LEVOFLOXACIN 750 MG PREMIX INJ 150 ML IV SCH (08:25)
[2017-07-18] MEDS: LANSOPRAZOLE SOLUTAB 30 MG TAB NG SCH (08:26)
[2017-07-18] MEDS: methylPREDNISolone SOD SUCC 40 MG/1 ML VIAL IV PUSH SCH ×2 (08:26→19:54)
[2017-07-18] MEDS: SENNOSIDES SYRUP 8.8 MG/5 ML CUP PO SCH ×2 (08:27→19:54)
[2017-07-18] MEDS: POLYETHYLENE GLYCOL 17 GM PKG PO SCH (08:27)
[2017-07-18] MEDS: DOCUSATE SODIUM 100 MG/10 ML UDC PO SCH ×2 (08:27→19:54)
[2017-07-18] MEDS: THIAMINE HCL 100 MG TAB PO SCH (08:27)
--- NOTE | 2017-07-18 11:55 | HHI.GIFU ---
Subjective Remarks Resting in bed. Lightly sedated, on CPAP. Follows commands. Denies nausea/ vomiting, denies abdominal pain. C/O being thirsty. Tolerating TF. (Padmini Blevins) Objective Vitals I&O Vital Signs Date Time Temp Pulse Resp B/P (MAP) Pulse Ox O2 Delivery O2 Flow Rate FiO2 07/18/17 09:57 100 40 07/18/17 09:57 40 07/18/17 08:10 100 Ventilator 40 07/18/17 07:29 100 40 07/18/17 06:00 72 07/18/17 04:27 100 40 07/18/17 04:00 40 07/18/17 04:00 97.9 70 15 99/55 (70) 100 07/18/17 04:00 70 07/18/17 02:00 78 07/18/17 01:49 100 40 07/18/17 00:00 74 07/18/17 00:00 40 07/18/17 00:00 98.1 74 16 113/59 (77) 100 07/17/17 22:00 78 07/17/17 20:38 100 40 07/17/17 20:00 40 07/17/17 20:00 98.8 80 15 121/60 (80) 100 07/17/17 20:00 80 07/17/17 18:00 80 07/17/17 16:00 78 07/17/17 16:00 40 07/17/17 16:00 98.2 78 8 116/58 (77) 100 07/17/17 15:52 100 40 07/17/17 15:52 40 07/17/17 14:00 74 07/17/17 13:05 100 100 07/17/17 12:00 98.1 76 15 109/63 (78) 99 07/17/17 12:00 76 07/17/17 12:00 40 07/17/17 11:55 99 40 I/O 07/17/17 07/17/17 07/17/17 07/18/17 07/18/17 07/18/17 06:59 14:59 22:59 06:59 14:59 22:59 Intake Total 1030 ml 1464 ml 1100 ml 1005 ml Output Total 700 ml 725 ml 1400 ml Balance 330 ml 1464 ml 375 ml -395 ml IV Total 550 ml 1434 ml 550 ml 531 ml Tube Feeding 380 ml 550 ml 474 ml Other 100 ml 30 ml Output Urine Total 700 ml 725 ml 1400 ml # Bowel Movements 0 0 0 Laboratory Date/Time Source Procedure Growth Status 07/15/17 18:17 Blood Peripheral Aerobic Blood Culture - Preliminary NO GROWTH IN 3 DAYS Resulted 07/15/17 18:17 Blood Peripheral Anaerobic Blood Culture - Preliminary NO GROWTH IN 3 DAYS Resulted 07/15/17 14:30 Sputum Endotracheal Gram Stain - Final Complete 07/15/17 14:30 Sputum Endotracheal Sputum Culture - Final HEAVY GROWTH NORMAL RESPIRATORY KAYLEIGH Complete 07/15/17 10:00 Urine Catheterized Urine Legionella Antigen - Final PRESUMPTIVE NEGATIVE FOR LEGIONELLA P... Complete 07/15/17 10:00 Urine Catheterized Urine Streptococcus pneumoniae Antigen (M - Final PRESUMPTIVE NEGATIVE FOR STREPTOCOCCU... Complete Imaging Last Impressions Chest X-Ray 07/18/17 0600 Signed Impressions: Service Date/Time: July 05:41 - CONCLUSION: No significant interval change Kristian Avery MD Brain MRI 07/17/17 0000 Signed Impressions: Service Date/Time: Monday, July 17, 2017 12:31 - CONCLUSION: 1. No acute intracranial abnormality. 2. Scattered fluid signal throughout the mastoid air cells bilaterally. Clinical evaluation for any signs of acute mastoiditis suggested. Michael Huitron Jr., MD Barium Swallow X-Ray 07/14/17 0000 Signed Impressions: Service Date/Time: Friday, July 14, 2017 11:58 - CONCLUSION: 1. There was penetration of barium into the airway with coating of the inferior aspect of the epiglottis but no definite aspiration. Rehabilitation swallow service would be indicated for further assessment. 2. No findings to indicate esophageal obstruction were identified. Silvestre Sumner MD Cervical Spine MRI 07/10/17 0000 Signed Impressions: Service Date/Time: Monday, July 10, 2017 16:30 - CONCLUSION: Very large right paracentral disc herniation at C3-4 obliterating the right lateral recess and neural foramen Kristian Avery MD Head CT 07/09/171950 Signed Impressions: Service Date/Time: Sunday, July 09, 2017 20:45 - CONCLUSION: No acute disease. Kristian Fierro MD Cervical Spine CT 07/09/17 0000 Signed Impressions: Service Date/Time: Sunday, July 09, 2017 20:45 - CONCLUSION: 1. Focal lucent lesion at the anterior-inferior aspect of the C3 vertebral body. Much of the anterior cortex over this region is missing. There is some fragmentation at the anterior-inferior cortex which may represent some minimal fracturing of the anterior-inferior aspect of the C3 vertebral body at the margin of this lucent mass. The remaining aspect of the C3 vertebral body is intact. 2. Right lateral recess mild disc protrusion at the C3-C4 level. There does appear to be increased soft tissue density in the anterior right lateral epidural space at this region and extending to the C2-3 level. This could be secondary to some degree of superior extrusion and/or some degree of accompanying hemorrhage. There does continue to be CSF around the cord at these levels. 3. Air within the epidural space and the prevertebral soft tissues likely from disruption of the C3-4 disc. 4. The cervical spine could be further evaluated with an MRI examination with and without contrast. The above information was relayed to Dr. Portillo by telephone. Kristian Fierro MD CT Angiography 07/09/17 0000 Signed Impressions: Service Date/Time: Sunday, July 09, 2017 23:22 - CONCLUSION: 1. No pulmonary embolus. 2. Suspected pulmonary artery hypertension. 3. Mild to moderate emphysema. 4. Patchy bilateral infiltrate including bilateral nodular areas which are most likely infectious or inflammatory. Followup noncontrast chest CT is recommended in approximately 3 months. The nonspecific mildly enlarged right hilar lymph node should be rechecked at that time as well. 5. Tiny pericardial effusion. Kristian Abraham MD Physical Exam HEENT: Normocephalic; atraumatic; no jaundice. CHEST: OETT to vent. Diminished bases CARDIAC: RRR ABDOMEN: Soft, nondistended, nontender; no hepatosplenomegaly; bowel sounds are present in all four quadrants. NGT with TF EXTREMITIES: BUE mildly edematous SKIN: Normal; no rash; no jaundice. GLOBAL ANALYTICS HEAD: Lightly sedated, follows commands. (Padmini Blevins) Assessment and Plan Plan ASSESSMENT - Dysphagia. Pt c/o intermittent bolus sensation, odynophagia, regurgitation foods solid and liquid for 11 years, hx vocal chord ca, s/p radiation S/P ST eval who recommended mech. soft and thin liquids. Barium swallow ( 07/14)---> penetration of barium into the airway with coating the inferior aspect of the epiglottis but no definite aspiration. No evidence of esophageal obstruction. EGD (07/16/17)---> 1. The esophagus appeared normal 2. There was erythematous gastritis in the gastric antrum; biopsy was performed 3. Normal duodenal mucosa in the bulb and second portion of the duodenum 4. Retroflexed views revealed no abnormalities. Pathology pending. PPI (prevacid). Tolerating TF. MRI (07/17/17)--> No acute intracranial abnormality, scattered fluid signal throughout the mastoid air cells bilaterally. Clinical evaluation for any signs of acute mastoiditis suggested. Would benefit from modified barium swallow once extubated. Accounting Supervisor recommends Jevity 1.5 at 45cc/hr- tolerating TF. Cont. TF. MBS with speech therapy once extubated. - Abnormal weight loss. - Respiratory failure, Aspiration pneumonia, COPD/Emphysema. Legionella ag pending, streptococcus pneumoniae pending. BCx no growth 5 days. Vent per CCM. ID following. Flagyl, Azactam, Levaquin - UTI with E. Coli, PSAE. Rpt. Cx okay. Abx per ID - Depression. per psych. - Hx of head and neck cancer, s/p radiation. - Hx Hepatitis C, unclear if this was treated or not. PLAN - Jevity 1.5 at 45cc/hr - Await pathology - Cont. Prevacid - Supportive care - Consider MBS once extubated, had barium swallow as above - Further recommendations to follow based on results of above - Pt seen and examined by Dr. Zepeda and myself and this note is written on his behalf (Padmini Blevins) Physician Comments GI fu as needed. Will sign off. Thank you (Emily Zepeda MD) Padmini Blevins Jul 18, 2017 11:55 Emily Zepeda MD Jul 18, 2017 15:02
--- NOTE | 2017-07-18 14:08 | HHI.CCPN ---
Subjective Remarks/Hospital Course This is a 56-year-old female. Date of admission 07/10/2017. Date of consult 07/13/2017. 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 Patient was admitted to [facility] from [facility] with chief complaints of neck pain and symptomatic hypotension. She was originally admitted under the hospitalist service. Evaluation include evaluation by neurosurgery for C3/4 disc protrusion. Changes on MRI were thought to be secondary to radiation therapy. There is no spinal cord compression or significant foraminal encroachment. Recommended conservative therapy. Patient was evaluated by gastroenterology for dysphagia. Modified barium swallow showed no aspiration. Patient was evaluated by psychiatry for depression. Dr. Kearney recommended supportive care. Patient was evaluated by infectious disease for urinary tract infection. Patient is currently on levofloxacin for Pseudomonas and Escherichia coli UTI. This a.m., patient became acutely hypoxic likely secondary to aspiration. She was minimally responsive but was able to get permission for intubation and central line placement. Her peripheral IV was nonfunctional therefore central line was placed and patient was emergently intubated post line procedure. Follow-up chest x-ray revealed significant right lower lobe infiltrates likely aspiration. She is currently on low-dose norepinephrine. 07/16: Status post EGD today. This revealed gastritis. Normal esophagus and duodenum. MRI brain currently pending. Currently on low-dose norepinephrine at 7 g per minute. White Cell count currently 26,000. 07/17: Afebrile. Status post MRI brain. Results currently pending. Continues on low-dose norepinephrine at 4 micrograms per minute. White cell count decreasing. FiO2 down to 40%. Follows commands on sedation vacation. Subjective 07/18: Afebrile. Tolerating tube feeding. Currently weaning sedation in attempt to extubate today. Objective Vital Signs Date Time Temp Pulse Resp B/P (MAP) Pulse Ox O2 Delivery O2 Flow Rate FiO2 07/18/17 12:46 100 40 07/18/17 08:10 Ventilator 07/18/17 06:00 72 07/18/17 04:00 97.9 15 99/55 (70) 07/15/17 06:12 15.00 Intake and Output 07/18/17 07/18/1717 07:59 15:59 23:59 Intake Total 1005 ml Output Total 1400 ml Balance -395 ml Result Diagram: 07/17/1715 07/17/1715 Other Results Microbiology Date/Time Source Procedure Growth Status 07/15/17 18:17 Blood Peripheral Aerobic Blood Culture - Preliminary NO GROWTH IN 3 DAYS Resulted 07/15/17 18:17 Blood Peripheral Anaerobic Blood Culture - Preliminary NO GROWTH IN 3 DAYS Resulted 07/15/17 14:30 Sputum Endotracheal Gram Stain - Final Complete 07/15/17 14:30 Sputum Endotracheal Sputum Culture - Final HEAVY GROWTH NORMAL RESPIRATORY KAYLEIGH Complete 07/15/17 10:00 Urine Catheterized Urine Legionella Antigen - Final PRESUMPTIVE NEGATIVE FOR LEGIONELLA P... Complete 07/15/17 10:00 Urine Catheterized Urine Streptococcus pneumoniae Antigen (M - Final PRESUMPTIVE NEGATIVE FOR STREPTOCOCCU... Complete Imaging Last Impressions Chest X-Ray 07/18/17 0600 Signed Impressions: Service Date/Time: July 05:41 - CONCLUSION: No significant interval change Kristian Avery MD Brain MRI 07/17/17 0000 Signed Impressions: Service Date/Time: Monday, July 17, 2017 12:31 - CONCLUSION: 1. No acute intracranial abnormality. 2. Scattered fluid signal throughout the mastoid air cells bilaterally. Clinical evaluation for any signs of acute mastoiditis suggested. Michael Huitron Jr., MD Barium Swallow X-Ray 07/14/17 0000 Signed Impressions: Service Date/Time: Friday, July 14, 2017 11:58 - CONCLUSION: 1. There was penetration of barium into the airway with coating of the inferior aspect of the epiglottis but no definite aspiration. Rehabilitation swallow service would be indicated for further assessment. 2. No findings to indicate esophageal obstruction were identified. Silvestre Sumner MD Cervical Spine MRI 07/10/17 0000 Signed Impressions: Service Date/Time: Monday, July 10, 2017 16:30 - CONCLUSION: Very large right paracentral disc herniation at C3-4 obliterating the right lateral recess and neural foramen Kristian Avery MD Head CT 07/09/171950 Signed Impressions: Service Date/Time: Sunday, July 09, 2017 20:45 - CONCLUSION: No acute disease. Kristian Fierro MD Cervical Spine CT 07/09/17 0000 Signed Impressions: Service Date/Time: Sunday, July 09, 2017 20:45 - CONCLUSION: 1. Focal lucent lesion at the anterior-inferior aspect of the C3 vertebral body. Much of the anterior cortex over this region is missing. There is some fragmentation at the anterior-inferior cortex which may represent some minimal fracturing of the anterior-inferior aspect of the C3 vertebral body at the margin of this lucent mass. The remaining aspect of the C3 vertebral body is intact. 2. Right lateral recess mild disc protrusion at the C3-C4 level. There does appear to be increased soft tissue density in the anterior right lateral epidural space at this region and extending to the C2-3 level. This could be secondary to some degree of superior extrusion and/or some degree of accompanying hemorrhage. There does continue to be CSF around the cord at these levels. 3. Air within the epidural space and the prevertebral soft tissues likely from disruption of the C3-4 disc. 4. The cervical spine could be further evaluated with an MRI examination with and without contrast. The above information was relayed to Dr. Portillo by telephone. Kristian Fierro MD CT Angiography 07/09/17 0000 Signed Impressions: Service Date/Time: Sunday, July 09, 2017 23:22 - CONCLUSION: 1. No pulmonary embolus. 2. Suspected pulmonary artery hypertension. 3. Mild to moderate emphysema. 4. Patchy bilateral infiltrate including bilateral nodular areas which are most likely infectious or inflammatory. Followup noncontrast chest CT is recommended in approximately 3 months. The nonspecific mildly enlarged right hilar lymph node should be rechecked at that time as well. 5. Tiny pericardial effusion. Kristian Abraham MD Objective Remarks GENERAL: 56-year-old female, critically ill currently orotracheally intubated SKIN: Cool and dry. Significant ecchymoses bilateral upper extremities. HEAD: Atraumatic. Normocephalic. EYES: Right pupil was 4 mm and reactive. Left pupil is 5 mm and reactive. No scleral icterus. No injection or drainage. ENT: No nasal bleeding or discharge. Mucous membranes pink and moist. NECK: Trachea midline. No JVD. CARDIOVASCULAR: Tachycardic, RR. S1, S2. No S4. No S3. 2/6 systolic murmur best appreciated in the left lower sternal border. RESPIRATORY: Breath sounds appreciated in the right lower lobe. No wheezing. Symmetrical excursion. GASTROINTESTINAL: Abdomen soft, non-tender, scaphoid. Hypoactive bowel sounds are appreciated.. MUSCULOSKELETAL: Extremities without significant peripheral edema. Ecchymoses at site of left upper extremity BP NEUROLOGICAL: Prior to intubation, awake and able to follow commands. Moves all 4 extremities spontaneously. Date of Insertion: Jul 15, 2017 Line: Central Venous Catheter Side: Left Location: Internal, Jugular A/P Assessment and Plan Neuro/Psych: Depression/anxiety Seizure disorder NOS EtOH abuse C3/4 disc protrusion Patient is currently on propofol at 50 mcg/kg per minute/fentanyl drips it 100 grams an hour for sedation/analgesia while intubated Goal of RA SS -2 to -1 Daily sedation vacation Patient is currently on thiamine, folate and multivitamin for EtOH abuse Patient was evaluated by Dr. Kearney/psychiatry this admission. Recommended supportive care. Possibly Maxalt/Remeron for dietary stimulation C-spine revealed C3/4 disc protrusion with mild foraminal protrusion without spinal cord compression. Likely radiation therapy induced. Evaluated by neurosurgery/Dr. Love. No intervention planned at this time MRI brain completed 07/17. No acute findings. Rule out signs of mastoiditis CV: Sepsis Valvular Heart disease NOS Patient is currently on norepinephrine 4 g per minute to maintain mean arterial pressure greater than equal to 65 Status post 1 L normal saline 07/15 Check CVP currently 11 See infectious disease for antibiotic coverage Echocardiogram revealed EF 55%. Mildly dilated right ventricle and atrium. Moderate TR. Pulmonary arterial pressures 67 mmHg Resp: Acute hypoxic hypercapnic respiratory failure likely secondary to aspiration pneumonia COPD [facility] 15/450/10/11/39 Ventilator bundle Albuterol/ipratropium aerosols every 6 hours with albuterol aerosols every 2 hours as needed for dyspnea Spontaneous breathing trials when clinically indicated CTA chest revealed moderate emphysema. Nodular densities recommended 3 month follow-up CT . GI: Dysphagia Severe protein calorie malnutrition NG tube has been placed currently to low intermittent wall suction Start tube feedings per dietary's recommendations. Continue Jevity 1.5 goal 40 cc an hour lansoprazole 30 no grams daily for GI prophylaxis Docusate sodium liquid 100 mg twice a day for bowel regimen and added Senokot and MiraLAX Gastroenterology is following EGD reveals gastritis. Normal esophagus and duodenum.. Modified barium swallow showed penetration to the class but no suzanne aspiration. No signs of esophageal blockage : Mckee catheter has been placed for accurate I's and O's in a critically ill patient Endo: History of hypothyroidism Check TSH/free T4. Sliding-scale insulin with Accu-Cheks every 6 hours to maintain euglycemia Novulin R moderate regimen Renal: Creatinine currently within normal limits Monitor urine output Accurate I's and O's Currently on normal saline at 84 cc an hour Heme: Leukocytosis Macrocytosis Monitor CBC daily. Follow trends ID: Escherichia coli/Pseudomonas urinary tract infection Patient is currently on levofloxacin, aztreonam and vancomycin Pertinent cultures 07/15- blood cultures - pending 07/13 - influenza a and b negative 07/09 - urine - E coli/Pseudomonas aeruginosa 07/09 - blood cultures 2 - no growth to date Infectious disease is following FEN: Hypophosphatemia Hypo-phosphatemia Replace electrolytes as clinically indicated per ICU electrolyte protocol and 30 mmol K-Phos 1 now. MSK: General debilitation PT/OT evaluate and treat Access - Utilize left IJ CVL day 2 placed 07/15/2017 Prophylaxis - GI - lansoprazole - DVT - SCD/enoxaparin Critical Care: The total critical care time was 35 minutes. Time to perform other separately billable procedures was not included in the critical care time. Jace Yang MD Jul 18, 2017 14:08
[2017-07-18] MEDS ORDERED: FUROSEMIDE 40 MG/4 ML VIAL IV PUSH ONE (14:15)
[2017-07-18 16:04] LABS: HEMATOCRIT 26.6 % (35.0-46.0); MEAN CELL VOLUME 107.4 FL (80.0-100.0); MEAN CORPUSCULAR HEMOGLOBIN 36.6 PG (27.0-34.0); MEAN CORPUSCULAR HGB CONC 34.1 % (32.0-36.0); PLATELET COUNT 282 TH/MM3 (150-450); RED BLOOD COUNT 2.48 MIL/MM3 (4.00-5.30); REVIEW FLAG FINAL; WHITE BLOOD COUNT 15.1 TH/MM3 (4.0-11.0)
[2017-07-18 16:52] LABS: BICARBONATE 30.8 MEQ/L (21.0-32.0); MAGNESIUM 1.9 MG/DL (1.5-2.5); POTASSIUM 4.4 MEQ/L (3.5-5.1)
[2017-07-18] MEDS: ENOXAPARIN SODIUM 30 MG/0.3 ML SYRINGE SQ SCH (17:54)
[2017-07-19] VITALS (13 sets, daily range): BP systolic 101–119; BP diastolic 59–68; PULSE 94–115; RESP 18–26; TEMP 98.1–98.8; O2SAT 92–100
[2017-07-19] MEDS: metroNIDAZOLE 500 MG INJ 100 ML IV SCH ×2 (01:01→08:09)
[2017-07-19] MEDS: AZTREONAM INJ 2,000 MG in SODIUM CHLORIDE 0.9% INJ 100 ML IV SCH ×2 (01:10→09:16)
[2017-07-19] MEDS: INSULIN NovoLIN REGULAR SUPPLEMENTAL SCALE SQ SCH ×3 (01:32→17:50)
[2017-07-19] MEDS: ALBUMIN 25% INJ 100 ML IV SCH (02:00)
--- NOTE | 2017-07-19 03:24 | RADRPT ---
EXAM DATE/TIME: 07/19/2017 02:18 [place] COMPARISON: CHEST SINGLE AP, July 18, 2017, 5:41. INDICATIONS : Respiratory failure MEDICAL HISTORY : Chronic obstructive pulmonary disease. Cancer of vocal cords, right side SURGICAL HISTORY : Hysterectomy. Cholecystectomy. ENCOUNTER: Subsequent ACUITY: 1 week PAIN SCORE: Non-responsive. LOCATION: Bilateral chest FINDINGS: A single view of the chest demonstrates left central line in superior vena cava. NG tube in the stoma ch. Endotracheal tube has been removed. Right basilar airspace consolidation not significantly change d since July 18. Left lung is clear. CONCLUSION: 1. Support apparatus in good position. Right basilar airspace consolidation with small right effusion . Talib Park MD on July 19, 2017 at 3:22 Board Certified Radiologist. This report was verified electronically.
[2017-07-19] MEDS: RESP: ALBUTEROL 2.5 MG/IPRATROPIUM 0.5 MG NEB (SCH) NEB ×4 (04:25→20:29)
[2017-07-19 04:42] LABS: AUTOMATED NEUTROPHIL # 12.1 TH/MM3 (1.8-7.7); BASOPHIL % 0.1 % (0.0-2.0); HEMATOCRIT 27.3 % (35.0-46.0); HEMO FLAGS DIFF FINAL; LYMPHOCYTE # 0.5 TH/MM3 (1.0-4.8); MEAN CELL VOLUME 105.9 FL (80.0-100.0); MEAN CORPUSCULAR HEMOGLOBIN 36.5 PG (27.0-34.0); MEAN CORPUSCULAR HGB CONC 34.5 % (32.0-36.0); MONO % 6.5 % (0.0-8.0); NEUT % 89.4 % (16.0-70.0); PLATELET COUNT 275 TH/MM3 (150-450); RED BLOOD COUNT 2.58 MIL/MM3 (4.00-5.30); WHITE BLOOD COUNT 13.6 TH/MM3 (4.0-11.0)
[2017-07-19] MEDS: ARTIFICIAL TEARS OPTH SOLN 15 ML BTL EACH EYE SCH ×3 (06:00→20:11)
[2017-07-19] MEDS: CHLORHEXIDINE 0.12% (ORAL KIT) 15 ML CUP MT SCH ×2 (08:00→20:10)
[2017-07-19] MEDS: LANSOPRAZOLE SOLUTAB 30 MG TAB NG SCH (08:10)
[2017-07-19] MEDS: methylPREDNISolone SOD SUCC 40 MG/1 ML VIAL IV PUSH SCH ×2 (08:10→20:09)
[2017-07-19] MEDS: THIAMINE HCL 100 MG TAB PO SCH (08:10)
[2017-07-19] MEDS: POLYETHYLENE GLYCOL 17 GM PKG PO SCH (08:11)
[2017-07-19] MEDS: SENNOSIDES SYRUP 8.8 MG/5 ML CUP PO SCH ×2 (08:11→20:10)
[2017-07-19] MEDS: SODIUM CHLORIDE 0.9% FLUSH 10 ML FLUSH IV FLUSH SCH ×3 (08:11→20:10)
[2017-07-19] MEDS: DOCUSATE SODIUM 100 MG/10 ML UDC PO SCH ×2 (08:11→20:10)
[2017-07-19 08:17] LABS: BLOOD UREA NITROGEN 14 MG/DL (7-18); GLOMERULAR FILTRATION RATE 136 ML/MIN (>89)
[2017-07-19 08:18] LABS: ALKALINE PHOSPHATASE 76 U/L (45-117); ALT (GPT) 13 U/L (10-53); ANION GAP 5 MEQ/L (5-15); AST (GOT) 10 U/L (15-37); BICARBONATE 34.5 MEQ/L (21.0-32.0); CHLORIDE 103 MEQ/L (98-107); MAGNESIUM 1.9 MG/DL (1.5-2.5); POTASSIUM 3.7 MEQ/L (3.5-5.1); SODIUM (NA) 142 MEQ/L (136-145); TOTAL BILIRUBIN ADULT 0.5 MG/DL (0.2-1.0)
[2017-07-19] MEDS: RESP: BUDESONIDE 0.5 MG/2 ML NEB NEB SCH ×2 (08:41→20:29)
[2017-07-19] MEDS: LEVOFLOXACIN 750 MG PREMIX INJ 150 ML IV SCH (09:33)
[2017-07-19] MEDS ORDERED: POTASSIUM PHOSPHATE INJ 30 MMOL in SODIUM CHLOR 0.9% 250 ML INJ 250 ML IV ONE (10:15)
--- NOTE | 2017-07-19 10:24 | HHI.CCPN ---
Subjective Remarks/Hospital Course This is a 56-year-old female. Date of admission 07/10/2017. Date of consult 07/13/2017. 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 Patient was admitted to [facility] from [facility] with chief complaints of neck pain and symptomatic hypotension. She was originally admitted under the hospitalist service. Evaluation include evaluation by neurosurgery for C3/4 disc protrusion. Changes on MRI were thought to be secondary to radiation therapy. There is no spinal cord compression or significant foraminal encroachment. Recommended conservative therapy. Patient was evaluated by gastroenterology for dysphagia. Modified barium swallow showed no aspiration. Patient was evaluated by psychiatry for depression. Dr. Kearney recommended supportive care. Patient was evaluated by infectious disease for urinary tract infection. Patient is currently on levofloxacin for Pseudomonas and Escherichia coli UTI. This a.m., patient became acutely hypoxic likely secondary to aspiration. She was minimally responsive but was able to get permission for intubation and central line placement. Her peripheral IV was nonfunctional therefore central line was placed and patient was emergently intubated post line procedure. Follow-up chest x-ray revealed significant right lower lobe infiltrates likely aspiration. She is currently on low-dose norepinephrine. 07/16: Status post EGD today. This revealed gastritis. Normal esophagus and duodenum. MRI brain currently pending. Currently on low-dose norepinephrine at 7 g per minute. White Cell count currently 26,000. 07/17: Afebrile. Status post MRI brain. Results currently pending. Continues on low-dose norepinephrine at 4 micrograms per minute. White cell count decreasing. FiO2 down to 40%. Follows commands on sedation vacation. 07/18: Afebrile. Tolerating tube feeding. Currently weaning sedation in attempt to extubate today. Subjective 07/19: Extubated yesterday without complication. Required NT suctioning overnight. Currently on 3-4 L nasal cannula. Tolerating tube feeding. Objective Vital Signs Date Time Temp Pulse Resp B/P (MAP) Pulse Ox O2 Delivery O2 Flow Rate FiO2 07/19/17 10:00 115 07/19/17 08:43 97 Nasal Cannula 4.00 07/19/17 08:00 98.3 23 119/68 (85) 07/18/17 12:46 40 Intake and Output 07/19/17 07/19/17 07/20/17 08:00 16:00 00:00 Intake Total 843 ml Output Total 1650 ml Balance -807 ml Result Diagram: 07/19/17 0415 07/19/17 0415 Imaging Last Impressions Chest X-Ray 07/18/17 0600 Signed Impressions: Service Date/Time: July 05:41 - CONCLUSION: No significant interval change Kristian Avery MD Brain MRI 07/17/17 0000 Signed Impressions: Service Date/Time: Monday, July 17, 2017 12:31 - CONCLUSION: 1. No acute intracranial abnormality. 2. Scattered fluid signal throughout the mastoid air cells bilaterally. Clinical evaluation for any signs of acute mastoiditis suggested. Michael Huitron Jr., MD Barium Swallow X-Ray 07/14/17 0000 Signed Impressions: Service Date/Time: Friday, July 14, 2017 11:58 - CONCLUSION: 1. There was penetration of barium into the airway with coating of the inferior aspect of the epiglottis but no definite aspiration. Rehabilitation swallow service would be indicated for further assessment. 2. No findings to indicate esophageal obstruction were identified. Silvestre Sumner MD Cervical Spine MRI 07/10/17 0000 Signed Impressions: Service Date/Time: Monday, July 10, 2017 16:30 - CONCLUSION: Very large right paracentral disc herniation at C3-4 obliterating the right lateral recess and neural foramen Kristian Avery MD Head CT 07/09/171950 Signed Impressions: Service Date/Time: Sunday, July 09, 2017 20:45 - CONCLUSION: No acute disease. Kristian Fierro MD Cervical Spine CT 07/09/17 0000 Signed Impressions: Service Date/Time: Sunday, July 09, 2017 20:45 - CONCLUSION: 1. Focal lucent lesion at the anterior-inferior aspect of the C3 vertebral body. Much of the anterior cortex over this region is missing. There is some fragmentation at the anterior-inferior cortex which may represent some minimal fracturing of the anterior-inferior aspect of the C3 vertebral body at the margin of this lucent mass. The remaining aspect of the C3 vertebral body is intact. 2. Right lateral recess mild disc protrusion at the C3-C4 level. There does appear to be increased soft tissue density in the anterior right lateral epidural space at this region and extending to the C2-3 level. This could be secondary to some degree of superior extrusion and/or some degree of accompanying hemorrhage. There does continue to be CSF around the cord at these levels. 3. Air within the epidural space and the prevertebral soft tissues likely from disruption of the C3-4 disc. 4. The cervical spine could be further evaluated with an MRI examination with and without contrast. The above information was relayed to Dr. Portillo by telephone. Kristian Fierro MD CT Angiography 07/09/17 0000 Signed Impressions: Service Date/Time: Sunday, July 09, 2017 23:22 - CONCLUSION: 1. No pulmonary embolus. 2. Suspected pulmonary artery hypertension. 3. Mild to moderate emphysema. 4. Patchy bilateral infiltrate including bilateral nodular areas which are most likely infectious or inflammatory. Followup noncontrast chest CT is recommended in approximately 3 months. The nonspecific mildly enlarged right hilar lymph node should be rechecked at that time as well. 5. Tiny pericardial effusion. Kristian Abraham MD Objective Remarks GENERAL: 56-year-old female, critically ill currently orotracheally intubated SKIN: Cool and dry. Significant ecchymoses bilateral upper extremities. HEAD: Atraumatic. Normocephalic. EYES: Right pupil was 4 mm and reactive. Left pupil is 5 mm and reactive. No scleral icterus. No injection or drainage. ENT: No nasal bleeding or discharge. Mucous membranes pink and moist. NECK: Trachea midline. No JVD. CARDIOVASCULAR: Tachycardic, RR. S1, S2. No S4. No S3. 2/6 systolic murmur best appreciated in the left lower sternal border. RESPIRATORY: Breath sounds appreciated in the right lower lobe. No wheezing. Symmetrical excursion. GASTROINTESTINAL: Abdomen soft, non-tender, scaphoid. Hypoactive bowel sounds are appreciated.. MUSCULOSKELETAL: Extremities without significant peripheral edema. Ecchymoses at site of left upper extremity BP NEUROLOGICAL: Prior to intubation, awake and able to follow commands. Moves all 4 extremities spontaneously. Date of Insertion: Jul 15, 2017 Line: Central Venous Catheter Side: Left Location: Internal, Jugular A/P Assessment and Plan Neuro/Psych: Depression/anxiety Seizure disorder NOS EtOH abuse C3/4 disc protrusion IV acetaminophen if needed for pain/fever Patient is currently on thiamine, folate and multivitamin for EtOH abuse Patient was evaluated by Dr. Kearney/psychiatry this admission. Recommended supportive care. Possibly Maxalt/Remeron for dietary stimulation C-spine revealed C3/4 disc protrusion with mild foraminal protrusion without spinal cord compression. Likely radiation therapy induced. Evaluated by neurosurgery/Dr. Love. No intervention planned at this time MRI brain completed 07/17. No acute findings. Rule out signs of mastoiditis CV: Sepsis Valvular Heart disease NOS Patient is currently on norepinephrine 4 g per minute to maintain mean arterial pressure greater than equal to 65 Status post 1 L normal saline 07/15 Check CVP currently 11. Discontinue today Furosemide 40 g iv 1 now. See infectious disease for antibiotic coverage Echocardiogram revealed EF 55%. Mildly dilated right ventricle and atrium. Moderate TR. Pulmonary arterial pressures 67 mmHg Resp: Acute hypoxic hypercapnic respiratory failure likely secondary to aspiration pneumonia COPD Nasal cannula to maintain saturations greater than equal to 92% Incentive spirometry while awake A cappella every 6 hours with aerosolized treatment At 3% hypertonic saline aerosols every 6 hours for secretions along with guaifenesin 40 mg every 8 hours Albuterol/ipratropium aerosols every 6 hours with albuterol aerosols every 2 hours as needed for dyspnea NT-suction when necessary CTA chest revealed moderate emphysema. Nodular densities recommended 3 month follow-up CT . GI: Dysphagia Severe protein calorie malnutrition Continue Jevity 1.5 goal 40 cc an hour lansoprazole 30 milligrams daily for GI prophylaxis Docusate sodium liquid 100 mg twice a day for bowel regimen and added Senokot 8.6 mg twice a day and MiraLAX 17 g daily Gastroenterology is following EGD reveals gastritis. Normal esophagus and duodenum.. Modified barium swallow showed penetration to the class but no suzanne aspiration. No signs of esophageal blockage : Mckee catheter has been placed for accurate I's and O's in a critically ill patient Endo: History of hypothyroidism TSH within normal limits. Sliding-scale insulin with Accu-Cheks every 6 hours to maintain euglycemia Novulin R moderate regimen Renal: Creatinine currently within normal limits Monitor urine output Accurate I's and O's Discontinue IV fluids Heme: Leukocytosis Macrocytosis Monitor CBC daily. Follow trends ID: Escherichia coli/Pseudomonas urinary tract infection Patient is currently on levofloxacin, aztreonam and vancomycin Pertinent cultures 07/15- blood cultures - pending 07/13 - influenza a and b negative 07/09 - urine - E coli/Pseudomonas aeruginosa 07/09 - blood cultures 2 - no growth to date Infectious disease is following FEN: Hypophosphatemia Replace electrolytes as clinically indicated per ICU electrolyte protocol and 30 mmol K-Phos 1 now. MSK: General debilitation PT/OT evaluate and treat Access - Utilize left IJ CVL day 4 placed 07/15/2017 Prophylaxis - GI - lansoprazole - DVT - SCD/enoxaparin Level II follow-up Jace Yang MD Jul 19, 2017 10:24
[2017-07-19] MEDS ORDERED: FUROSEMIDE 40 MG/4 ML VIAL IV PUSH ONE (11:00)
[2017-07-19] MEDS: guaiFENesin SOLUTION 200 MG/10 ML CUP PO SCH ×2 (13:23→20:11)
--- NOTE | 2017-07-19 15:54 | HHI.IDPN ---
Subjective Subjective Remarks is a 56 y/o CF with hx ETOH abuse, vocal cord ca s/p radiation who presented from [facility] with hypoxemia. She says she was smoking too much, getting drunk and falling down. After being at the center for 2 days she stood up and got dizzy. She was found to have bilat PNA. She has had difficulty swallowing for 11 years. She c/o of intermittent bolus sensation, regurgitation, and odynophagia. Has with liquids and solids. Never had EGD. Had colonoscopy 4-5 years ago in [facility], says findings were polyps. ID was consulted for evaluation and Mment of Bilateral Pneumonia, UTI. Overnight events reviewed Extubated yday uneventful. No fever No rash No diarrhea On tube feeds, NG tube. No aspiration, vomiting. Failed swallow eval. Mckee in place: large volume urine and just extubated. CL in place: on Kphos. Antibiotics I attest I obtained, reviewed or updated home meds and current meds(name, dose, freq and route of meds) Levaquin IV Aztreonam IV Flagyl IV Lines Line sites with no e.o infection Past Medical History reviewed Allergies: Coded Allergies: penicillin G (Verified Allergy, Severe, hives, 07/09/17) Objective . Vital Signs Date Time Temp Pulse Resp B/P (MAP) Pulse Ox O2 Delivery O2 Flow Rate FiO2 07/19/17 14:00 100 07/19/17 12:00 110 07/19/17 12:00 98.1 110 26 112/65 (81) 97 07/19/17 10:00 115 07/19/17 08:43 97 Nasal Cannula 4.00 07/19/17 08:00 99 07/19/17 08:00 98.3 102 23 119/68 (85) 93 07/19/17 07:00 93 Nasal Cannula 4.00 07/19/17 06:00 106 07/19/17 04:00 100 07/19/17 04:00 98.3 100 18 113/60 (77) 93 07/19/17 02:00 96 07/19/17 00:00 103 07/19/17 00:00 98.2 103 20 110/64 (79) 100 07/18/17 23:20 93 Partial Rebreather 12.00 07/18/17 22:00 102 07/18/17 20:56 98 Nasal Cannula 4.00 07/18/17 20:00 98.2 94 25 124/62 (82) 98 07/18/17 20:00 94 07/18/17 18:00 90 07/18/17 16:00 94 07/18/17 16:00 98.7 96 20 120/58 (78) 98 07/19/17 07/19/17 07/20/17 15:00 23:00 07:00 Intake Total 350 ml Balance 350 ml IV Total 350 ml . Laboratory Tests Test 07/18/17 15:00 07/19/17 04:15 White Blood Count 15.1 TH/MM3 13.6 TH/MM3 Red Blood Count 2.48 MIL/MM3 2.58 MIL/MM3 Hemoglobin 9.1 GM/DL 9.4 GM/DL Hematocrit 26.6 % 27.3 % Mean Corpuscular Volume 107.4 FL 105.9 FL Mean Corpuscular Hemoglobin 36.6 PG 36.5 PG Mean Corpuscular Hemoglobin Concent 34.1 % 34.5 % Red Cell Distribution Width 15.0 % 15.0 % Platelet Count 282 TH/MM3 275 TH/MM3 Mean Platelet Volume 8.5 FL 8.4 FL Neutrophils (%) (Auto) 89.4 % Lymphocytes (%) (Auto) 4.0 % Monocytes (%) (Auto) 6.5 % Eosinophils (%) (Auto) 0.0 % Basophils (%) (Auto) 0.1 % Neutrophils # (Auto) 12.1 TH/MM3 Lymphocytes # (Auto) 0.5 TH/MM3 Monocytes # (Auto) 0.9 TH/MM3 Eosinophils # (Auto) 0.0 TH/MM3 Basophils # (Auto) 0.0 TH/MM3 CBC Comment DIFF FINAL Differential Comment Laboratory Tests Test 07/18/17 15:00 07/19/17 04:15 Blood Urea Nitrogen 11 MG/DL 14 MG/DL Creatinine 0.44 MG/DL 0.47 MG/DL Random Glucose 140 MG/DL 150 MG/DL Calcium Level 8.4 MG/DL 8.6 MG/DL Phosphorus Level 1.9 MG/DL 2.4 MG/DL Magnesium Level 1.9 MG/DL 1.9 MG/DL Sodium Level 142 MEQ/L 142 MEQ/L Potassium Level 4.4 MEQ/L 3.7 MEQ/L Chloride Level 107 MEQ/L 103 MEQ/L Carbon Dioxide Level 30.8 MEQ/L 34.5 MEQ/L Anion Gap 4 MEQ/L 5 MEQ/L Estimat Glomerular Filtration Rate 147 ML/MIN 136 ML/MIN Total Protein 6.2 GM/DL Albumin 3.3 GM/DL Alkaline Phosphatase 76 U/L Aspartate Amino Transf (AST/SGOT) 10 U/L Alanine Aminotransferase (ALT/SGPT) 13 U/L Total Bilirubin 0.5 MG/DL Imaging Last Impressions Chest X-Ray 07/15/17 0739 Signed Impressions: Service Date/Time: Saturday, July 15, 2017 07:40 - CONCLUSION: Right basilar consolidation with volume loss. Jonny Bneton MD Barium Swallow X-Ray 07/14/17 0000 Signed Impressions: Service Date/Time: Friday, July 14, 2017 11:58 - CONCLUSION: 1. There was penetration of barium into the airway with coating of the inferior aspect of the epiglottis but no definite aspiration. Rehabilitation swallow service would be indicated for further assessment. 2. No findings to indicate esophageal obstruction were identified. Silvestre Sumner MD Cervical Spine MRI 07/10/17 Signed Impressions: Service Date/Time: Monday, July 10, 2017 16:30 - CONCLUSION: Very large right paracentral disc herniation at C3-4 obliterating the right lateral recess and neural foramen Kristian Avery MD Head CT 07/09/171950 Signed Impressions: Service Date/Time: Sunday, July 09, 2017 20:45 - CONCLUSION: No acute disease. Kristian Fierro MD Cervical Spine CT 07/09/17 Signed Impressions: Service Date/Time: Sunday, July 09, 2017 20:45 - CONCLUSION: 1. Focal lucent lesion at the anterior-inferior aspect of the C3 vertebral body. Much of the anterior cortex over this region is missing. There is some fragmentation at the anterior-inferior cortex which may represent some minimal fracturing of the anterior-inferior aspect of the C3 vertebral body at the margin of this lucent mass. The remaining aspect of the C3 vertebral body is intact. 2. Right lateral recess mild disc protrusion at the C3-C4 level. There does appear to be increased soft tissue density in the anterior right lateral epidural space at this region and extending to the C2-3 level. This could be secondary to some degree of superior extrusion and/or some degree of accompanying hemorrhage. There does continue to be CSF around the cord at these levels. 3. Air within the epidural space and the prevertebral soft tissues likely from disruption of the C3-4 disc. 4. The cervical spine could be further evaluated with an MRI examination with and without contrast. The above information was relayed to Dr. Portillo by telephone. Kristian Fierro MD CT Angiography 07/09/17 0000 Signed Impressions: Service Date/Time: Sunday, July 09, 2017 23:22 - CONCLUSION: 1. No pulmonary embolus. 2. Suspected pulmonary artery hypertension. 3. Mild to moderate emphysema. 4. Patchy bilateral infiltrate including bilateral nodular areas which are most likely infectious or inflammatory. Followup noncontrast chest CT is recommended in approximately 3 months. The nonspecific mildly enlarged right hilar lymph node should be rechecked at that time as well. 5. Tiny pericardial effusion. Kristian Abraham MD Physical Exam GENERAL: Thin built poorly-nourished, well-developed patient, in no apparent distress. SKIN: No rashes, ecchymoses or lesions. Cool and dry. HEAD: Atraumatic. Normocephalic. No temporal or scalp tenderness. EYES: Pupils equal round and reactive. Extraocular motions intact. No scleral icterus. No injection or drainage. ENT: Airway patent. No ulcers. NECK: Trachea midline. Supple, nontender, no meningeal signs. CARDIOVASCULAR: Regular rate and rhythm without murmurs, gallops, or rubs. RESPIRATORY: Clear to auscultation. Breath sounds equal bilaterally. No wheezes , rales, or rhonchi. GASTROINTESTINAL: Abdomen soft, non-tender, nondistended. MUSCULOSKELETAL: Extremities without clubbing, cyanosis, or edema. No joint tenderness, effusion, or edema noted. No calf tenderness. Negative Homans sign bilaterally. NEUROLOGICAL: Opens eyes, follows commands, Moves extremities. IV line sites with no e.o infection. Assessment & Plan Remarks Aspiration Pneumonia/HCAP Acute resp failure E.coli PSAE UTI vs colonization Alcoholism Weight loss Dysphagia Prior Head neck cancer s/p radiation C3-4 large disc herniation Depression Recs: DC Azactam IV Change to oral Flagyl Change to oral levaquin. Plan on additional 5-7 days based on clinical response. Follow cultures Follow clinically. d/w RN I will be OOT from 07/20/17 to 07/28/17. Other ID MDs covering for me. Dolorse Devlin MD Jul 19, 2017 15:54
[2017-07-19] MEDS: RESP: SODIUM CHLORIDE 3% 4 ML NEB NEB SCH ×2 (17:39→20:29)
[2017-07-19] MEDS: ENOXAPARIN SODIUM 30 MG/0.3 ML SYRINGE SQ SCH (17:50)
[2017-07-20] VITALS (14 sets, daily range): BP systolic 101–110; BP diastolic 56–76; PULSE 77–102; RESP 20–31; TEMP 97.8–98.5; O2SAT 94–98
[2017-07-20] MEDS: INSULIN NovoLIN REGULAR SUPPLEMENTAL SCALE SQ SCH ×5 (00:40→23:08)
[2017-07-20] MEDS: RESP: ALBUTEROL 2.5 MG/IPRATROPIUM 0.5 MG NEB (SCH) NEB ×4 (03:58→21:49)
[2017-07-20] MEDS: RESP: SODIUM CHLORIDE 3% 4 ML NEB NEB SCH ×4 (04:03→21:49)
[2017-07-20 04:24] LABS: BASOPHIL % 0.1 % (0.0-2.0); HEMO FLAGS DIFF FINAL; LYMPH % 2.9 % (9.0-44.0); LYMPHOCYTE # 0.4 TH/MM3 (1.0-4.8); MEAN CELL VOLUME 106.3 FL (80.0-100.0); MEAN CORPUSCULAR HGB CONC 32.9 % (32.0-36.0); MONO % 5.8 % (0.0-8.0); NEUT % 91.2 % (16.0-70.0); PLATELET COUNT 281 TH/MM3 (150-450); RED BLOOD COUNT 2.82 MIL/MM3 (4.00-5.30); RED CELL DISTRIBUTION WIDTH 15.2 % (11.6-17.2); WHITE BLOOD COUNT 14.3 TH/MM3 (4.0-11.0)
[2017-07-20 04:44] LABS: ANION GAP 5 MEQ/L (5-15); AST (GOT) 13 U/L (15-37); BICARBONATE 36.2 MEQ/L (21.0-32.0); BLOOD UREA NITROGEN 17 MG/DL (7-18); CHLORIDE 99 MEQ/L (98-107); GLOMERULAR FILTRATION RATE 169 ML/MIN (>89); MAGNESIUM 2.2 MG/DL (1.5-2.5); POTASSIUM 3.9 MEQ/L (3.5-5.1); SODIUM (NA) 140 MEQ/L (136-145)
[2017-07-20 05:05] LABS: ALKALINE PHOSPHATASE 74 U/L (45-117); ALT (GPT) 15 U/L (10-53); TOTAL BILIRUBIN ADULT 0.4 MG/DL (0.2-1.0)
[2017-07-20] MEDS: ARTIFICIAL TEARS OPTH SOLN 15 ML BTL EACH EYE SCH (05:28)
[2017-07-20] MEDS: guaiFENesin SOLUTION 200 MG/10 ML CUP PO SCH ×3 (05:28→21:36)
--- NOTE | 2017-07-20 06:48 | RADRPT ---
EXAM DATE/TIME: 07/20/2017 04:58 [facility] COMPARISON: CHEST SINGLE AP, July 19, 2017, 2:18. INDICATIONS : Evaluate pnuemonia MEDICAL HISTORY : Chronic obstructive pulmonary disease. Cancer of vocal cords SURGICAL HISTORY : Cholecystectomy. Hysterectomy. ENCOUNTER: Subsequent ACUITY: 1 week PAIN SCORE: 6/10 LOCATION: Bilateral chest FINDINGS: The NG tube tip is at the EG junction region. There is a left internal jugular central line in place with the tip overlying the SVC. The patient is rotated towards the right. The heart size is normal. T here is increased density at the right base. There is a intramedullary maria d seen in the left humerus. CONCLUSION: 1. ET tube with tip at the EG junction. This should be advanced. 2. Increased density at the right base representing consolidation or atelectasis. This is unchanged f rom the prior exam. Kristian Fierro MD on July 20, 2017 at 6:45 Board Certified Radiologist. This report was verified electronically.
[2017-07-20] MEDS: CHLORHEXIDINE 0.12% (ORAL KIT) 15 ML CUP MT SCH ×2 (08:00→20:00)
[2017-07-20] MEDS: methylPREDNISolone SOD SUCC 40 MG/1 ML VIAL IV PUSH SCH ×2 (08:47→20:18)
[2017-07-20] MEDS: LANSOPRAZOLE SOLUTAB 30 MG TAB NG SCH (08:49)
[2017-07-20] MEDS: SODIUM CHLORIDE 0.9% FLUSH 10 ML FLUSH IV FLUSH SCH ×3 (08:49→20:19)
[2017-07-20] MEDS: THIAMINE HCL 100 MG TAB PO SCH (08:49)
[2017-07-20] MEDS: DOCUSATE SODIUM 100 MG/10 ML UDC PO SCH ×2 (08:50→20:19)
[2017-07-20] MEDS: SENNOSIDES SYRUP 8.8 MG/5 ML CUP PO SCH ×2 (08:51→20:19)
[2017-07-20] MEDS: POLYETHYLENE GLYCOL 17 GM PKG PO SCH (08:51)
[2017-07-20] MEDS: RESP: BUDESONIDE 0.5 MG/2 ML NEB NEB SCH ×2 (10:08→21:49)
--- NOTE | 2017-07-20 13:53 | HHI.CCPN ---
Subjective Remarks/Hospital Course This is a 56-year-old female. Date of admission 07/10/2017. Date of consult 07/13/2017. 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 Patient was admitted to [facility] from [facility] with chief complaints of neck pain and symptomatic hypotension. She was originally admitted under the hospitalist service. Evaluation include evaluation by neurosurgery for C3/4 disc protrusion. Changes on MRI were thought to be secondary to radiation therapy. There is no spinal cord compression or significant foraminal encroachment. Recommended conservative therapy. Patient was evaluated by gastroenterology for dysphagia. Modified barium swallow showed no aspiration. Patient was evaluated by psychiatry for depression. Dr. Kearney recommended supportive care. Patient was evaluated by infectious disease for urinary tract infection. Patient is currently on levofloxacin for Pseudomonas and Escherichia coli UTI. This a.m., patient became acutely hypoxic likely secondary to aspiration. She was minimally responsive but was able to get permission for intubation and central line placement. Her peripheral IV was nonfunctional therefore central line was placed and patient was emergently intubated post line procedure. Follow-up chest x-ray revealed significant right lower lobe infiltrates likely aspiration. She is currently on low-dose norepinephrine. 07/16: Status post EGD today. This revealed gastritis. Normal esophagus and duodenum. MRI brain currently pending. Currently on low-dose norepinephrine at 7 g per minute. White Cell count currently 26,000. 07/17: Afebrile. Status post MRI brain. Results currently pending. Continues on low-dose norepinephrine at 4 micrograms per minute. White cell count decreasing. FiO2 down to 40%. Follows commands on sedation vacation. 07/18: Afebrile. Tolerating tube feeding. Currently weaning sedation in attempt to extubate today. 07/19: Extubated yesterday without complication. Required NT suctioning overnight. Currently on 3-4 L nasal cannula. Tolerating tube feeding. Subjective 07/20: Currently afebrile. On 2.5 L nasal cannula. Advancing diet. Out of bed to stretcher chair daily. Objective Vital Signs Date Time Temp Pulse Resp B/P (MAP) Pulse Ox O2 Delivery O2 Flow Rate FiO2 07/20/17 12:00 95 07/20/17 12:00 98.1 27 107/76 (86) 94 07/20/17 10:08 Nasal Cannula 2.50 07/20/17 07:00 40 Intake and Output 07/20/17 07/20/17 07/21/17 08:00 16:00 00:00 Intake Total 535 ml Output Total 550 ml Balance -15 ml Result Diagram: 07/20/17 0410 07/20/17 0410 Other Results Microbiology Date/Time Source Procedure Growth Status 07/15/17 18:17 Blood Peripheral Aerobic Blood Culture - Final NO GROWTH IN 5 DAYS Complete 07/15/17 18:17 Blood Peripheral Anaerobic Blood Culture - Final NO GROWTH IN 5 DAYS Complete 07/19/17 17:14 Sputum Expectorated Sputum Gram Stain - Final Resulted 07/19/17 17:14 Sputum Expectorated Sputum Sputum Culture - Preliminary HEAVY GROWTH NORMAL RESPIRATORY KAYLEIGH... Resulted 07/15/17 10:00 Urine Catheterized Urine Legionella Antigen - Final PRESUMPTIVE NEGATIVE FOR LEGIONELLA P... Complete 07/15/17 10:00 Urine Catheterized Urine Streptococcus pneumoniae Antigen (M - Final PRESUMPTIVE NEGATIVE FOR STREPTOCOCCU... Complete Imaging Last Impressions Chest X-Ray 07/20/17 0600 Signed Impressions: Service Date/Time: Thursday, July 20, 2017 04:58 - CONCLUSION: 1. ET tube with tip at the EG junction. This should be advanced. 2. Increased density at the right base representing consolidation or atelectasis. This is unchanged from the prior exam. Kristian Fierro MD Brain MRI 07/17/17 0000 Signed Impressions: Service Date/Time: Monday, July 17, 2017 12:31 - CONCLUSION: 1. No acute intracranial abnormality. 2. Scattered fluid signal throughout the mastoid air cells bilaterally. Clinical evaluation for any signs of acute mastoiditis suggested. Michael Huitron Jr., MD Barium Swallow X-Ray 07/14/17 0000 Signed Impressions: Service Date/Time: Friday, July 14, 2017 11:58 - CONCLUSION: 1. There was penetration of barium into the airway with coating of the inferior aspect of the epiglottis but no definite aspiration. Rehabilitation swallow service would be indicated for further assessment. 2. No findings to indicate esophageal obstruction were identified. Silvestre Sumner MD Cervical Spine MRI 07/10/17 0000 Signed Impressions: Service Date/Time: Monday, July 10, 2017 16:30 - CONCLUSION: Very large right paracentral disc herniation at C3-4 obliterating the right lateral recess and neural foramen Kristian Avery MD Head CT 07/09/171950 Signed Impressions: Service Date/Time: Sunday, July 09, 2017 20:45 - CONCLUSION: No acute disease. Kristian Fierro MD Cervical Spine CT 07/09/17 0000 Signed Impressions: Service Date/Time: Sunday, July 09, 2017 20:45 - CONCLUSION: 1. Focal lucent lesion at the anterior-inferior aspect of the C3 vertebral body. Much of the anterior cortex over this region is missing. There is some fragmentation at the anterior-inferior cortex which may represent some minimal fracturing of the anterior-inferior aspect of the C3 vertebral body at the margin of this lucent mass. The remaining aspect of the C3 vertebral body is intact. 2. Right lateral recess mild disc protrusion at the C3-C4 level. There does appear to be increased soft tissue density in the anterior right lateral epidural space at this region and extending to the C2-3 level. This could be secondary to some degree of superior extrusion and/or some degree of accompanying hemorrhage. There does continue to be CSF around the cord at these levels. 3. Air within the epidural space and the prevertebral soft tissues likely from disruption of the C3-4 disc. 4. The cervical spine could be further evaluated with an MRI examination with and without contrast. The above information was relayed to Dr. Portillo by telephone. Kristian Fierro MD CT Angiography 07/09/17 0000 Signed Impressions: Service Date/Time: Sunday, July 09, 2017 23:22 - CONCLUSION: 1. No pulmonary embolus. 2. Suspected pulmonary artery hypertension. 3. Mild to moderate emphysema. 4. Patchy bilateral infiltrate including bilateral nodular areas which are most likely infectious or inflammatory. Followup noncontrast chest CT is recommended in approximately 3 months. The nonspecific mildly enlarged right hilar lymph node should be rechecked at that time as well. 5. Tiny pericardial effusion. Kristian Abraham MD Objective Remarks GENERAL: 56-year-old female, critically ill currently orotracheally intubated SKIN: Cool and dry. Significant ecchymoses bilateral upper extremities. HEAD: Atraumatic. Normocephalic. EYES: Right pupil was 4 mm and reactive. Left pupil is 5 mm and reactive. No scleral icterus. No injection or drainage. ENT: No nasal bleeding or discharge. Mucous membranes pink and moist. NECK: Trachea midline. No JVD. CARDIOVASCULAR: Tachycardic, RR. S1, S2. No S4. No S3. 2/6 systolic murmur best appreciated in the left lower sternal border. RESPIRATORY: Breath sounds appreciated in the right lower lobe. No wheezing. Symmetrical excursion. GASTROINTESTINAL: Abdomen soft, non-tender, scaphoid. Hypoactive bowel sounds are appreciated.. MUSCULOSKELETAL: Extremities without significant peripheral edema. Ecchymoses at site of left upper extremity BP NEUROLOGICAL: Prior to intubation, awake and able to follow commands. Moves all 4 extremities spontaneously. Vascular Central Line Catheter: Yes Assessment to: Continue Date of Insertion: Jul 15, 2017 Line: Central Venous Catheter Side: Left Location: Internal, Jugular A/P Assessment and Plan Neuro/Psych: Depression/anxiety Seizure disorder NOS EtOH abuse C3/4 disc protrusion IV acetaminophen if needed for pain/fever Patient is currently on thiamine, folate and multivitamin for EtOH abuse Patient was evaluated by Dr. Kearney/psychiatry this admission. Recommended supportive care. Possibly Maxalt/Remeron for dietary stimulation C-spine revealed C3/4 disc protrusion with mild foraminal protrusion without spinal cord compression. Likely radiation therapy induced. Evaluated by neurosurgery/Dr. Love. No intervention planned at this time MRI brain completed 07/17. No acute findings. Rule out signs of mastoiditis CV: Sepsis Valvular Heart disease NOS Patient is currently off all vasopressors mean arterial pressure greater than equal to 65 Status post 1 L normal saline 07/15 Check CVP currently 11. Discontinue 07/19 Acetazolamide 250 mg IV 1 now for contraction alkalosis See infectious disease for antibiotic coverage Echocardiogram revealed EF 55%. Mildly dilated right ventricle and atrium. Moderate TR. Pulmonary arterial pressures 67 mmHg Resp: Acute hypoxic hypercapnic respiratory failure likely secondary to aspiration pneumonia COPD Nasal cannula to maintain saturations greater than equal to 92% Incentive spirometry while awake A cappella every 6 hours with aerosolized treatment At 3% hypertonic saline aerosols every 6 hours for secretions along with guaifenesin 40 mg every 8 hours Albuterol/ipratropium aerosols every 6 hours with albuterol aerosols every 2 hours as needed for dyspnea NT-suction when necessary CTA chest revealed moderate emphysema. Nodular densities recommended 3 month follow-up CT . GI: Dysphagia Severe protein calorie malnutrition Continue Jevity 1.5 until cleared by speech therapy for normal diet and okay to remove NG tube lansoprazole 30 milligrams daily for GI prophylaxis Docusate sodium liquid 100 mg twice a day for bowel regimen and added Senokot 8.6 mg twice a day and MiraLAX 17 g daily Gastroenterology is following EGD reveals gastritis. Normal esophagus and duodenum.. Modified barium swallow showed penetration to the class but no suzanne aspiration. No signs of esophageal blockage : Mckee catheter has been placed for accurate I's and O's in a critically ill patient Endo: History of hypothyroidism TSH within normal limits. Sliding-scale insulin with Accu-Cheks every 6 hours to maintain euglycemia Novulin R moderate regimen Renal: Creatinine currently within normal limits Monitor urine output Accurate I's and O's Discontinue IV fluids Heme: Leukocytosis Macrocytosis Monitor CBC daily. Follow trends ID: Escherichia coli/Pseudomonas urinary tract infection Infectious disease discontinued levofloxacin, aztreonam and vancomycin on 07/19 Pertinent cultures 07/15- blood cultures -no growth 07/13 - influenza a and b negative 07/09 - urine - E coli/Pseudomonas aeruginosa 07/09 - blood cultures 2 - no growth to date FEN: Hypophosphatemia Replace electrolytes as clinically indicated per ICU electrolyte protocol and 30 mmol K-Phos 1 now. MSK: General debilitation PT/OT evaluate and treat Access - Utilize left IJ CVL day 5 placed 07/15/2017 Prophylaxis - GI - lansoprazole - DVT - SCD/enoxaparin Level II follow-up Patient is stable from a critical care medicine standpoint. Assign care to hospitalist in a.m. 07/21 Jace Yang MD Jul 20, 2017 13:53
[2017-07-20] MEDS: ENOXAPARIN SODIUM 30 MG/0.3 ML SYRINGE SQ SCH (17:54)
[2017-07-21] VITALS (14 sets, daily range): BP systolic 95–112; BP diastolic 55–71; PULSE 78–103; RESP 23–28; TEMP 97.8–98.5; O2SAT 96–99
[2017-07-21] MEDS: RESP: ALBUTEROL 2.5 MG/IPRATROPIUM 0.5 MG NEB (SCH) NEB ×4 (03:24→21:56)
[2017-07-21] MEDS: RESP: SODIUM CHLORIDE 3% 4 ML NEB NEB SCH ×4 (03:25→21:56)
[2017-07-21 04:13] LABS: AUTOMATED NEUTROPHIL # 13.8 TH/MM3 (1.8-7.7); BASOPHIL % 0.1 % (0.0-2.0); HEMATOCRIT 31.5 % (35.0-46.0); HEMO FLAGS DIFF FINAL; LYMPH % 2.4 % (9.0-44.0); LYMPHOCYTE # 0.4 TH/MM3 (1.0-4.8); MEAN CORPUSCULAR HEMOGLOBIN 35.2 PG (27.0-34.0); MEAN CORPUSCULAR HGB CONC 33.2 % (32.0-36.0); MONO % 4.5 % (0.0-8.0); PLATELET COUNT 290 TH/MM3 (150-450); RED BLOOD COUNT 2.97 MIL/MM3 (4.00-5.30); RED CELL DISTRIBUTION WIDTH 15.1 % (11.6-17.2); WHITE BLOOD COUNT 14.8 TH/MM3 (4.0-11.0)
[2017-07-21 04:27] LABS: ANION GAP 6 MEQ/L (5-15); AST (GOT) 13 U/L (15-37); BICARBONATE 30.1 MEQ/L (21.0-32.0); BLOOD UREA NITROGEN 19 MG/DL (7-18); CHLORIDE 103 MEQ/L (98-107); GLOMERULAR FILTRATION RATE 121 ML/MIN (>89); MAGNESIUM 2.4 MG/DL (1.5-2.5); POTASSIUM 4.2 MEQ/L (3.5-5.1); SODIUM (NA) 139 MEQ/L (136-145)
[2017-07-21 04:30] LABS: ALKALINE PHOSPHATASE 74 U/L (45-117); ALT (GPT) 16 U/L (10-53); TOTAL BILIRUBIN ADULT 0.4 MG/DL (0.2-1.0)
[2017-07-21] MEDS: INSULIN NovoLIN REGULAR SUPPLEMENTAL SCALE SQ SCH ×4 (05:18→23:23)
[2017-07-21] MEDS: guaiFENesin SOLUTION 200 MG/10 ML CUP PO SCH ×3 (05:18→21:24)
--- NOTE | 2017-07-21 06:33 | RADRPT ---
EXAM DATE/TIME: 07/21/2017 05:02 [facility] COMPARISON: CHEST SINGLE AP, July 20, 2017, 4:58. INDICATIONS : Shortness of breath MEDICAL HISTORY : Chronic obstructive pulmonary disease. Cancer of Vocal Cords SURGICAL HISTORY : Cholecystectomy. Hysterectomy. ENCOUNTER: Subsequent ACUITY: 1 week PAIN SCORE: 6/10 LOCATION: Bilateral chest FINDINGS: The patient is rotated towards the right. The heart size is within normal limits. The lungs appear hy perinflated. There is increased density at the right base. The left lung is grossly clear. The NG tub e tip is in the upper stomach. There is a left internal jugular central line in place with the tip ov erlying the SVC. There is an intramedullary maria d seen in the left humerus. CONCLUSION: Right base consolidation/atelectasis and possible effusion. Kristian Fierro MD on July 21, 2017 at 6:30 Board Certified Radiologist. This report was verified electronically.
[2017-07-21] MEDS: CHLORHEXIDINE 0.12% (ORAL KIT) 15 ML CUP MT SCH ×2 (07:42→20:00)
[2017-07-21] MEDS: RESP: BUDESONIDE 0.5 MG/2 ML NEB NEB SCH ×2 (08:44→21:56)
[2017-07-21] MEDS: SODIUM CHLORIDE 0.9% FLUSH 10 ML FLUSH IV FLUSH SCH ×3 (08:44→20:38)
[2017-07-21] MEDS: THIAMINE HCL 100 MG TAB PO SCH (08:45)
[2017-07-21] MEDS: DOCUSATE SODIUM 100 MG/10 ML UDC PO SCH ×2 (08:45→20:38)
[2017-07-21] MEDS: SENNOSIDES SYRUP 8.8 MG/5 ML CUP PO SCH ×2 (08:45→20:38)
[2017-07-21] MEDS: LANSOPRAZOLE SOLUTAB 30 MG TAB NG SCH (08:45)
[2017-07-21] MEDS: methylPREDNISolone SOD SUCC 40 MG/1 ML VIAL IV PUSH SCH ×2 (08:45→20:38)
[2017-07-21] MEDS: ENOXAPARIN SODIUM 30 MG/0.3 ML SYRINGE SQ SCH (18:12)
[2017-07-22] VITALS (12 sets, daily range): BP systolic 99–112; BP diastolic 58–64; PULSE 80–100; RESP 18–30; TEMP 97–98.1; O2SAT 92–100
[2017-07-22] MEDS: RESP: ALBUTEROL 2.5 MG/IPRATROPIUM 0.5 MG NEB (SCH) NEB ×2 (04:12→08:47)
[2017-07-22] MEDS: RESP: SODIUM CHLORIDE 3% 4 ML NEB NEB SCH ×4 (04:12→21:58)
[2017-07-22] MEDS: guaiFENesin SOLUTION 200 MG/10 ML CUP PO SCH ×3 (05:00→20:41)
[2017-07-22] MEDS: INSULIN NovoLIN REGULAR SUPPLEMENTAL SCALE SQ SCH ×4 (05:02→23:30)
[2017-07-22] MEDS: CHLORHEXIDINE 0.12% (ORAL KIT) 15 ML CUP MT SCH ×2 (08:00→20:00)
[2017-07-22] MEDS: RESP: BUDESONIDE 0.5 MG/2 ML NEB NEB SCH ×2 (08:47→20:00)
[2017-07-22] MEDS: SODIUM CHLORIDE 0.9% FLUSH 10 ML FLUSH IV FLUSH SCH ×3 (08:58→20:42)
[2017-07-22] MEDS: THIAMINE HCL 100 MG TAB PO SCH (08:59)
[2017-07-22] MEDS: methylPREDNISolone SOD SUCC 40 MG/1 ML VIAL IV PUSH SCH ×2 (08:59→20:42)
[2017-07-22] MEDS: SENNOSIDES SYRUP 8.8 MG/5 ML CUP PO SCH ×2 (08:59→20:41)
[2017-07-22] MEDS: DOCUSATE SODIUM 100 MG/10 ML UDC PO SCH ×2 (08:59→20:41)
[2017-07-22] MEDS: LANSOPRAZOLE SOLUTAB 30 MG TAB NG SCH (08:59)
--- NOTE | 2017-07-22 16:46 | HHI.CCPN ---
Subjective Remarks/Hospital Course This is a 56-year-old female. Date of admission 07/10/2017. Date of consult 07/13/2017. 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 Patient was admitted to [facility] from [facility] with chief complaints of neck pain and symptomatic hypotension. She was originally admitted under the hospitalist service. Evaluation include evaluation by neurosurgery for C3/4 disc protrusion. Changes on MRI were thought to be secondary to radiation therapy. There is no spinal cord compression or significant foraminal encroachment. Recommended conservative therapy. Patient was evaluated by gastroenterology for dysphagia. Modified barium swallow showed no aspiration. Patient was evaluated by psychiatry for depression. Dr. Kearney recommended supportive care. Patient was evaluated by infectious disease for urinary tract infection. Patient is currently on levofloxacin for Pseudomonas and Escherichia coli UTI. This a.m., patient became acutely hypoxic likely secondary to aspiration. She was minimally responsive but was able to get permission for intubation and central line placement. Her peripheral IV was nonfunctional therefore central line was placed and patient was emergently intubated post line procedure. Follow-up chest x-ray revealed significant right lower lobe infiltrates likely aspiration. She is currently on low-dose norepinephrine. 07/16: Status post EGD today. This revealed gastritis. Normal esophagus and duodenum. MRI brain currently pending. Currently on low-dose norepinephrine at 7 g per minute. White Cell count currently 26,000. 07/17: Afebrile. Status post MRI brain. Results currently pending. Continues on low-dose norepinephrine at 4 micrograms per minute. White cell count decreasing. FiO2 down to 40%. Follows commands on sedation vacation. 07/18: Afebrile. Tolerating tube feeding. Currently weaning sedation in attempt to extubate today. 07/19: Extubated yesterday without complication. Required NT suctioning overnight. Currently on 3-4 L nasal cannula. Tolerating tube feeding. 07/20: Currently afebrile. On 2.5 L nasal cannula. Advancing diet. Out of bed to stretcher chair daily. Subjective 07/22: afebrile. feels subjectively better. on NC o2. ROS negative and denies complaints. Objective Vital Signs Date Time Temp Pulse Resp B/P (MAP) Pulse Ox O2 Delivery O2 Flow Rate FiO2 07/22/17 16:00 98 07/22/17 12:00 97.0 18 109/62 (78) 96 07/22/17 08:54 Nasal Cannula 2.00 07/21/17 07:00 40 Intake and Output 07/22/17 07/22/17 07/23/17 08:00 16:00 00:00 Intake Total 871 ml Output Total 750 ml 450 ml Balance 121 ml -450 ml Result Diagram: 07/21/17 0355 07/21/17 0355 Other Results Microbiology Date/Time Source Procedure Growth Status 07/19/17 17:14 Sputum Expectorated Sputum Gram Stain - Final Complete 07/19/17 17:14 Sputum Expectorated Sputum Sputum Culture - Final HEAVY GROWTH NORMAL RESPIRATORY KAYLEIGH Complete Imaging Last Impressions Chest X-Ray 07/20/17 0600 Signed Impressions: Service Date/Time: Thursday, July 20, 2017 04:58 - CONCLUSION: 1. ET tube with tip at the EG junction. This should be advanced. 2. Increased density at the right base representing consolidation or atelectasis. This is unchanged from the prior exam. Kristian Fierro MD Brain MRI 07/17/17 0000 Signed Impressions: Service Date/Time: Monday, July 17, 2017 12:31 - CONCLUSION: 1. No acute intracranial abnormality. 2. Scattered fluid signal throughout the mastoid air cells bilaterally. Clinical evaluation for any signs of acute mastoiditis suggested. Michael Huitron Jr., MD Barium Swallow X-Ray 07/14/17 0000 Signed Impressions: Service Date/Time: Friday, July 14, 2017 11:58 - CONCLUSION: 1. There was penetration of barium into the airway with coating of the inferior aspect of the epiglottis but no definite aspiration. Rehabilitation swallow service would be indicated for further assessment. 2. No findings to indicate esophageal obstruction were identified. Silvestre Sumner MD Cervical Spine MRI 07/10/17 0000 Signed Impressions: Service Date/Time: Monday, July 10, 2017 16:30 - CONCLUSION: Very large right paracentral disc herniation at C3-4 obliterating the right lateral recess and neural foramen Kristian Avery MD Head CT 07/09/171950 Signed Impressions: Service Date/Time: Sunday, July 09, 2017 20:45 - CONCLUSION: No acute disease. Kristian Fierro MD Cervical Spine CT 07/09/17 0000 Signed Impressions: Service Date/Time: Sunday, July 09, 2017 20:45 - CONCLUSION: 1. Focal lucent lesion at the anterior-inferior aspect of the C3 vertebral body. Much of the anterior cortex over this region is missing. There is some fragmentation at the anterior-inferior cortex which may represent some minimal fracturing of the anterior-inferior aspect of the C3 vertebral body at the margin of this lucent mass. The remaining aspect of the C3 vertebral body is intact. 2. Right lateral recess mild disc protrusion at the C3-C4 level. There does appear to be increased soft tissue density in the anterior right lateral epidural space at this region and extending to the C2-3 level. This could be secondary to some degree of superior extrusion and/or some degree of accompanying hemorrhage. There does continue to be CSF around the cord at these levels. 3. Air within the epidural space and the prevertebral soft tissues likely from disruption of the C3-4 disc. 4. The cervical spine could be further evaluated with an MRI examination with and without contrast. The above information was relayed to Dr. Portillo by telephone. Kristian Fierro MD CT Angiography 07/09/17 0000 Signed Impressions: Service Date/Time: Sunday, July 09, 2017 23:22 - CONCLUSION: 1. No pulmonary embolus. 2. Suspected pulmonary artery hypertension. 3. Mild to moderate emphysema. 4. Patchy bilateral infiltrate including bilateral nodular areas which are most likely infectious or inflammatory. Followup noncontrast chest CT is recommended in approximately 3 months. The nonspecific mildly enlarged right hilar lymph node should be rechecked at that time as well. 5. Tiny pericardial effusion. Kristian Abraham MD Objective Remarks GENERAL: 56-year-old female, sitting in bed, no acute distress. SKIN: Cool and dry. Significant ecchymoses bilateral upper extremities. HEAD: Atraumatic. Normocephalic. EYES: Right pupil was 4 mm and reactive. Left pupil is 5 mm and reactive. No scleral icterus. No injection or drainage. ENT: No nasal bleeding or discharge. Mucous membranes pink and moist. NECK: Trachea midline. No JVD. CARDIOVASCULAR: Tachycardic, RR. RESPIRATORY: Breath sounds appreciated in the right lower lobe. No wheezing. Symmetrical excursion. GASTROINTESTINAL: Abdomen soft, non-tender, scaphoid. MUSCULOSKELETAL: Extremities without significant peripheral edema. Ecchymoses at site of left upper extremity BP NEUROLOGICAL: awake and able to follow commands. Moves all 4 extremities spontaneously. Date of Insertion: Jul 15, 2017 Line: Central Venous Catheter Side: Left Location: Internal, Jugular A/P Assessment and Plan Neuro/Psych: Depression/anxiety Seizure disorder NOS EtOH abuse C3/4 disc protrusion IV acetaminophen if needed for pain/fever Patient is currently on thiamine, folate and multivitamin for EtOH abuse Patient was evaluated by Dr. Kearney/psychiatry this admission. Recommended supportive care. Possibly Maxalt/Remeron for dietary stimulation C-spine revealed C3/4 disc protrusion with mild foraminal protrusion without spinal cord compression. Likely radiation therapy induced. Evaluated by neurosurgery/Dr. Love. No intervention planned at this time MRI brain completed 07/17. No acute findings. Rule out signs of mastoiditis CV: Sepsis - resolved. Valvular Heart disease NOS Patient is currently off all vasopressors mean arterial pressure greater than equal to 65 See infectious disease for antibiotic coverage Echocardiogram revealed EF 55%. Mildly dilated right ventricle and atrium. Moderate TR. Pulmonary arterial pressures 67 mmHg Resp: Acute hypoxic hypercapnic respiratory failure likely secondary to aspiration pneumonia COPD Nasal cannula to maintain saturations greater than equal to 92% Incentive spirometry while awake A cappella every 6 hours with aerosolized treatment At 3% hypertonic saline aerosols every 6 hours for secretions along with guaifenesin 40 mg every 8 hours Albuterol/ipratropium aerosols every 6 hours with albuterol aerosols every 2 hours as needed for dyspnea NT-suction when necessary CTA chest revealed moderate emphysema. Nodular densities recommended 3 month follow-up CT . GI: Dysphagia Severe protein calorie malnutrition Continue Jevity 1.5 until cleared by speech therapy for normal diet and okay to remove NG tube lansoprazole 30 milligrams daily for GI prophylaxis Docusate sodium liquid 100 mg twice a day for bowel regimen and added Senokot 8.6 mg twice a day and MiraLAX 17 g daily Gastroenterology is following EGD reveals gastritis. Normal esophagus and duodenum.. Modified barium swallow showed penetration to the class but no suzanne aspiration. No signs of esophageal blockage : Mckee catheter has been placed for accurate I's and O's in a critically ill patient Endo: History of hypothyroidism TSH within normal limits. Sliding-scale insulin with Accu-Cheks every 6 hours to maintain euglycemia Novulin R moderate regimen Renal: Creatinine currently within normal limits Monitor urine output Accurate I's and O's Discontinue IV fluids Heme: Leukocytosis Macrocytosis Monitor CBC daily. Follow trends ID: Escherichia coli/Pseudomonas urinary tract infection Infectious disease discontinued levofloxacin, aztreonam and vancomycin on 07/19 Pertinent cultures 07/15- blood cultures -no growth 07/13 - influenza a and b negative 07/09 - urine - E coli/Pseudomonas aeruginosa 07/09 - blood cultures 2 - no growth to date FEN: Hypophosphatemia Replace electrolytes as clinically indicated per ICU electrolyte protocol and 30 mmol K-Phos 1 now. MSK: General debilitation PT/OT evaluate and treat Access - Utilize left IJ CVL day 5 placed 07/15/2017: obtain piv and d/c cvl. Prophylaxis - GI - lansoprazole - DVT - SCD/enoxaparin Patient is stable from a critical care medicine standpoint. Assign care to hospitalist in a.mally. Jeremy Morris MD Jul 22, 2017 16:46
[2017-07-22] MEDS: ENOXAPARIN SODIUM 30 MG/0.3 ML SYRINGE SQ SCH (17:09)
[2017-07-23] VITALS (8 sets, daily range): BP systolic 101–122; BP diastolic 56–74; PULSE 66–98; RESP 19–20; TEMP 97.6–98.3; O2SAT 92–98
[2017-07-23] MEDS: RESP: SODIUM CHLORIDE 3% 4 ML NEB NEB SCH ×4 (05:23→22:00)
[2017-07-23] MEDS: INSULIN NovoLIN REGULAR SUPPLEMENTAL SCALE SQ SCH ×3 (06:00→17:35)
[2017-07-23] MEDS: guaiFENesin SOLUTION 200 MG/10 ML CUP PO SCH ×3 (06:00→20:46)
[2017-07-23] MEDS: CHLORHEXIDINE 0.12% (ORAL KIT) 15 ML CUP MT SCH (08:00)
[2017-07-23] MEDS: RESP: BUDESONIDE 0.5 MG/2 ML NEB NEB SCH ×2 (08:00→20:57)
[2017-07-23] MEDS: SODIUM CHLORIDE 0.9% FLUSH 10 ML FLUSH IV FLUSH SCH ×3 (08:36→20:51)
[2017-07-23] MEDS: LANSOPRAZOLE SOLUTAB 30 MG TAB NG SCH (08:37)
[2017-07-23] MEDS: SENNOSIDES SYRUP 8.8 MG/5 ML CUP PO SCH ×2 (08:38→20:46)
[2017-07-23] MEDS: methylPREDNISolone SOD SUCC 40 MG/1 ML VIAL IV PUSH SCH ×2 (08:38→20:46)
[2017-07-23] MEDS: THIAMINE HCL 100 MG TAB PO SCH (08:38)
[2017-07-23] MEDS: DOCUSATE SODIUM 100 MG/10 ML UDC PO SCH ×2 (08:38→20:46)
--- NOTE | 2017-07-23 16:18 | HHI.PR ---
Objective Vital Signs Date Time Temp Pulse Resp B/P (MAP) Pulse Ox O2 Delivery O2 Flow Rate FiO2 07/23/17 12:43 98.2 88 20 101/59 (73) 92 07/23/17 10:29 98 07/23/17 08:29 97.6 81 20 121/74 (90) 98 07/23/17 05:30 98.3 75 20 105/62 (76) 96 07/23/17 00:30 97.9 80 20 110/59 (76) 95 07/22/17 20:15 97.7 88 21 107/61 (76) 96 07/22/17 16:47 98.0 99 20 108/64 (79) 92 I/O 07/22/17 07/22/17 07/22/17 07/23/17 07/23/17 07/23/17 07:00 15:00 23:00 07:00 15:00 23:00 Intake Total 871 ml 0 ml 0 ml Output Total 750 ml 450 ml 200 ml Balance 121 ml -450 ml -200 ml Intake Oral 100 ml 0 ml 0 ml Tube Feeding 531 ml Other 240 ml Output Urine Total 750 ml 450 ml 200 ml # Voids 1 # Bowel Movements 0 0 0 Result Diagram: 07/21/17 0355 07/21/17 0355 A/P Problem List: (1) Bilateral pneumonia ICD Code: J18.9 - Pneumonia, unspecified organism (2) Hypoxemia ICD Code: R09.02 - Hypoxemia Status: Acute (3) Shortness of breath ICD Code: R06.02 - Shortness of breath Status: Acute Assessment and Plan Assessment and plan 56-year-old female Sepsis Resolved Bilateral pneumonia Aspiration pneumonia Respiratory failure Patient is now off the vent Continue to monitor respiratory status Oxygen as needed Continue nebulized treatments Continue incentive spirometry Continue Capella Seizure Hx No active treatment needed at this time EtOH abuse Continue daily thiamine Continue folic acid continue multivitamin IV acetaminophen if needed for pain/fever Patient is currently on thiamine, folate and multivitamin for EtOH abuse Patient was evaluated by Dr. Kearney/psychiatry this admission. Recommended supportive care. Possibly Maxalt/Remeron for dietary stimulation C-spine revealed C3/4 disc protrusion with mild foraminal protrusion without spinal cord compression. Likely radiation therapy induced. Evaluated by neurosurgery/Dr. Love. No intervention planned at this time MRI brain completed 07/17. No acute findings. Rule out signs of mastoiditis Dysphagia Severe protein calorie malnutrition Improvement in by mouth intake Mechanical soft diet and honey thick liquids recommended based on most recent speech therapy evaluation Discontinue NG feeds Start by mouth diet Modified barium swallow study showed no suzanne aspiration on 07/14/17 Repeat modified barium swallow study Leukocytosis Macrocytosis follow CBC Escherichia coli/Pseudomonas urinary tract infection Treatment completed on 07/19/17 Hypophosphatemia Monitor phosphate levels Replace as needed General debilitation Continue PT Continue OT DVT prophylaxis SCDs Silvestre Dobbs MD Jul 23, 2017 16:18
[2017-07-23] MEDS: ENOXAPARIN SODIUM 30 MG/0.3 ML SYRINGE SQ SCH (17:44)
[2017-07-24] VITALS (7 sets, daily range): BP systolic 95–119; BP diastolic 54–67; PULSE 69–101; RESP 16–20; TEMP 97.5–98.1; O2SAT 93–100
[2017-07-24] MEDS: RESP: SODIUM CHLORIDE 3% 4 ML NEB NEB SCH ×3 (04:52→15:40)
[2017-07-24] MEDS: guaiFENesin SOLUTION 200 MG/10 ML CUP PO SCH ×3 (05:30→21:20)
[2017-07-24] MEDS: INSULIN NovoLIN REGULAR SUPPLEMENTAL SCALE SQ SCH ×4 (05:33→17:32)
[2017-07-24] MEDS: SODIUM CHLORIDE 0.9% FLUSH 10 ML FLUSH IV FLUSH SCH ×3 (08:15→21:20)
[2017-07-24] MEDS: LANSOPRAZOLE SOLUTAB 30 MG TAB NG SCH (08:17)
[2017-07-24] MEDS: DOCUSATE SODIUM 100 MG/10 ML UDC PO SCH ×2 (08:17→21:00)
[2017-07-24] MEDS: SENNOSIDES SYRUP 8.8 MG/5 ML CUP PO SCH ×2 (08:17→21:00)
[2017-07-24] MEDS: methylPREDNISolone SOD SUCC 40 MG/1 ML VIAL IV PUSH SCH ×2 (08:17→21:20)
[2017-07-24] MEDS: THIAMINE HCL 100 MG TAB PO SCH (08:17)
[2017-07-24] MEDS: RESP: BUDESONIDE 0.5 MG/2 ML NEB NEB SCH ×2 (11:49→20:22)
--- NOTE | 2017-07-24 11:55 | HHI.PR ---
Subjective Remarks Improving slowly. Patient tolerating by mouth intake. Repeat barium swallow study report pending. Objective Vital Signs Date Time Temp Pulse Resp B/P (MAP) Pulse Ox O2 Delivery O2 Flow Rate FiO2 07/24/17 08:00 97.5 77 20 113/54 (73) 99 07/24/17 05:00 97.9 69 19 112/56 (74) 96 07/23/17 21:30 98.1 66 19 110/62 (78) 95 07/23/17 20:57 95 21 07/23/17 17:32 98.3 98 20 122/56 (78) 97 07/23/17 12:43 98.2 88 20 101/59 (73) 92 I/O 07/23/17 07/23/17 07/23/17 07/24/17 07/24/17 07/24/17 07:00 15:00 23:00 07:00 15:00 23:00 Intake Total 0 ml 120 ml 1313 ml 400 ml Output Total 200 ml Balance -200 ml 120 ml 1313 ml 400 ml Intake Oral 0 ml 120 ml 850 ml 400 ml Tube Feeding 463 ml Output Urine Total 200 ml # Voids 3 0 2 # Bowel Movements 0 0 0 0 Result Diagram: 07/21/1735407/21/17 035 Objective Remarks GENERAL: NAD, A&Ox3, global cachexia HEAD: Normocephalic. NECK: Supple, trachea midline. No lymphadenopathy. EYES: No scleral icterus. No injection or drainage. CARDIOVASCULAR: Regular rate and rhythm without murmurs, gallops, or rubs. RESPIRATORY: Breath sounds equal bilaterally. No accessory muscle use. GASTROINTESTINAL: Abdomen soft, non-tender, nondistended. MUSCULOSKELETAL: No cyanosis, or edema. SKIN: Warm and dry. NEURO: No focal neurological deficitis. A/P Problem List: (1) Bilateral pneumonia ICD Code: J18.9 - Pneumonia, unspecified organism (2) Hypoxemia ICD Code: R09.02 - Hypoxemia Status: Acute (3) Shortness of breath ICD Code: R06.02 - Shortness of breath Status: Acute Assessment and Plan Assessment and plan 56-year-old female Sepsis Resolved Bilateral pneumonia Aspiration pneumonia Respiratory failure Patient is now off the vent Continue to monitor respiratory status Oxygen as needed Continue nebulized treatments Continue incentive spirometry Continue Capella Seizure Hx No active treatment needed at this time EtOH abuse Continue daily thiamine Continue folic acid continue multivitamin Dysphagia Severe protein calorie malnutrition Mechanical soft diet and honey thick liquids recommended based on most recent speech therapy evaluation NG has been discontinued Tolerating diet thus far Modified barium swallow study showed no suzanne aspiration on 07/14/17 Repeat modified barium swallow study report pending Leukocytosis Macrocytosis follow CBC Escherichia coli/Pseudomonas urinary tract infection Treatment completed on 07/19/17 Hypophosphatemia Monitor phosphate levels Replace as needed General debilitation Improving slowly Patient's lack of insurance disqualifies her for [place] penitentiary facility placement She's intending to return to home once functional status increases Continue PT Continue OT DVT prophylaxis SCDs Silvestre Dobbs MD Jul 24, 2017 11:55
--- NOTE | 2017-07-24 12:54 | RADRPT ---
EXAM DATE/TIME: 07/24/2017 10:10 [place] COMPARISON: BARIUM SWALLOW, July 14, 2017, 11:58. INDICATIONS : Dysphagia. FLUORO TIME: 2.1 minutes IMAGE COUNT: 1 CONTRAST: Dose as prescribed by speech pathologist. MEDICAL HISTORY : Carcinoma, vocal cords. SURGICAL HISTORY : None. ENCOUNTER: Initial ACUITY: >1 year PAIN SCORE: 3/10 LOCATION: esophagus. FINDINGS: A modified barium swallow was performed with speech pathology. Patient was given a variety of liquids to swallow. Minimal stasis posterior pharyngeal wall are probably small Zenker's. There is no aspiration. For a full detailed report, see report by the speech pathologist. CONCLUSION: Negative for aspiration. Jonathan Sumner MD FACR on July 24, 2017 at 12:51 Board Certified Radiologist. This report was verified electronically.
[2017-07-24] MEDS: ENOXAPARIN SODIUM 30 MG/0.3 ML SYRINGE SQ SCH (17:24)
[2017-07-25] VITALS (8 sets, daily range): BP systolic 95–117; BP diastolic 50–77; PULSE 66–95; RESP 18–21; TEMP 97.3–98.2; O2SAT 92–98
[2017-07-25] MEDS: INSULIN NovoLIN REGULAR SUPPLEMENTAL SCALE SQ SCH ×4 (06:00→18:07)
[2017-07-25] MEDS: guaiFENesin SOLUTION 200 MG/10 ML CUP PO SCH ×3 (06:43→20:29)
[2017-07-25] MEDS: RESP: BUDESONIDE 0.5 MG/2 ML NEB NEB SCH ×2 (07:41→19:56)
[2017-07-25] MEDS: THIAMINE HCL 100 MG TAB PO SCH (08:42)
[2017-07-25] MEDS: LANSOPRAZOLE SOLUTAB 30 MG TAB NG SCH (08:42)
[2017-07-25] MEDS: methylPREDNISolone SOD SUCC 40 MG/1 ML VIAL IV PUSH SCH ×2 (08:43→20:28)
[2017-07-25] MEDS: DOCUSATE SODIUM 100 MG/10 ML UDC PO SCH ×2 (08:43→20:28)
[2017-07-25] MEDS: SODIUM CHLORIDE 0.9% FLUSH 10 ML FLUSH IV FLUSH SCH ×3 (08:43→20:28)
[2017-07-25] MEDS: SENNOSIDES SYRUP 8.8 MG/5 ML CUP PO SCH ×2 (08:44→20:28)
--- NOTE | 2017-07-25 10:55 | HHI.PR ---
Subjective Remarks Physical therapy will be primary focus of this point. Patient is tolerating by mouth intake. She is continuing to work well with speech therapy. No new complaints today. Objective Vital Signs Date Time Temp Pulse Resp B/P (MAP) Pulse Ox O2 Delivery O2 Flow Rate FiO2 07/25/17 10:02 97.7 71 20 109/61 (77) 98 07/25/17 07:43 98 07/25/17 05:37 97.3 66 18 95/56 (69) 95 07/25/17 00:22 98.2 72 18 110/57 (74) 96 07/24/17 20:43 97.8 89 16 95/55 (68) 95 07/24/17 20:22 100 21 07/24/17 15:46 98.1 101 20 104/60 (75) 93 07/24/17 12:48 97.7 86 20 119/67 (84) 95 07/24/17 11:50 95 I/O 07/24/17 07/24/17 07/24/17 07/25/17 07/25/17 07/25/17 07:00 15:00 23:00 07:00 15:00 23:00 Intake Total 400 ml 600 ml Balance 400 ml 600 ml Intake Oral 400 ml 600 ml # Voids 2 2 3 # Bowel Movements 0 0 Result Diagram: 07/21/1735407/21/17354 Objective Remarks GENERAL: NAD, A&Ox3, global cachexia HEAD: Normocephalic. NECK: Supple, trachea midline. No lymphadenopathy. EYES: No scleral icterus. No injection or drainage. CARDIOVASCULAR: Regular rate and rhythm without murmurs, gallops, or rubs. RESPIRATORY: Breath sounds equal bilaterally. No accessory muscle use. GASTROINTESTINAL: Abdomen soft, non-tender, nondistended. MUSCULOSKELETAL: No cyanosis, or edema. SKIN: Warm and dry. NEURO: No focal neurological deficitis. A/P Problem List: (1) Bilateral pneumonia ICD Code: J18.9 - Pneumonia, unspecified organism (2) Hypoxemia ICD Code: R09.02 - Hypoxemia Status: Acute (3) Shortness of breath ICD Code: R06.02 - Shortness of breath Status: Acute Assessment and Plan Assessment and plan 56-year-old female admitted secondary to respiratory failure and pneumonia. Patient was on ventilation greater than 1 week. Now improving. Global weakness is her primary issue at this point and she'll need further PT prior to discharge home as she does not qualify for nursing home facility, due to lack of access for financial reasons. Sepsis Resolved Bilateral pneumonia Aspiration pneumonia Respiratory failure Patient is now off the vent Continue to monitor respiratory status Oxygen as needed Continue nebulized treatments Continue incentive spirometry Continue Capella Seizure Hx No active treatment needed at this time EtOH abuse Continue daily thiamine Continue folic acid continue multivitamin Dysphagia Severe protein calorie malnutrition Mechanical soft diet and honey thick liquids recommended based on most recent speech therapy evaluation NG has been discontinued Tolerating diet thus far Modified barium swallow study showed no suzanne aspiration on 07/14/17 Repeat modified barium swallow study report pending Leukocytosis Macrocytosis follow CBC Escherichia coli/Pseudomonas urinary tract infection Treatment completed on 07/19/17 Hypophosphatemia Monitor phosphate levels Replace as needed General debilitation Improving slowly Patient's lack of insurance disqualifies her for [place] nursing home facility placement She's intending to return to home once functional status increases Continue PT Continue OT DVT prophylaxis SCDs Silvestre Dobbs MD Jul 25, 2017 10:55
[2017-07-25] MEDS: ENOXAPARIN SODIUM 30 MG/0.3 ML SYRINGE SQ SCH (18:08)
[2017-07-26] VITALS: BP 107/62; PULSE 77; RESP 16; TEMP 97.7; O2SAT 95
[2017-07-26 05:09] VITALS: BP 106/56; PULSE 67; RESP 16; TEMP 97.3; O2SAT 95
[2017-07-26] MEDS: guaiFENesin SOLUTION 200 MG/10 ML CUP PO SCH ×3 (05:42→20:44)
[2017-07-26] MEDS: INSULIN NovoLIN REGULAR SUPPLEMENTAL SCALE SQ SCH ×4 (05:48→17:31)
[2017-07-26 08:06] VITALS: BP 118/57; PULSE 72; RESP 20; TEMP 97.4; O2SAT 97
[2017-07-26] MEDS: RESP: BUDESONIDE 0.5 MG/2 ML NEB NEB SCH ×2 (08:14→19:28)
[2017-07-26] MEDS: LANSOPRAZOLE SOLUTAB 30 MG TAB NG SCH (08:54)
[2017-07-26] MEDS: THIAMINE HCL 100 MG TAB PO SCH (08:54)
[2017-07-26] MEDS: SODIUM CHLORIDE 0.9% FLUSH 10 ML FLUSH IV FLUSH SCH ×4 (08:54→20:46)
[2017-07-26] MEDS: methylPREDNISolone SOD SUCC 40 MG/1 ML VIAL IV PUSH SCH (08:54)
[2017-07-26] MEDS: SENNOSIDES SYRUP 8.8 MG/5 ML CUP PO SCH ×2 (08:55→20:47)
[2017-07-26] MEDS: DOCUSATE SODIUM 100 MG/10 ML UDC PO SCH ×2 (08:55→20:46)
--- NOTE | 2017-07-26 09:19 | HHI.PR ---
Subjective Remarks tolerating po very well very motivated with physical therapy swallowing good, good po Objective Vitals Vital Signs Date Time Temp Pulse Resp B/P (MAP) Pulse Ox O2 Delivery O2 Flow Rate FiO2 07/26/17 08:06 97.4 72 20 118/57 (77) 97 07/26/17 05:09 97.3 67 16 106/56 (73) 95 07/26/17 00:00 97.7 77 16 107/62 (77) 95 07/25/17 20:27 97.3 91 18 117/77 (90) 98 07/25/17 19:56 95 07/25/17 16:00 97.5 87 20 98/53 (68) 94 07/25/17 12:00 97.9 95 21 97/50 (66) 92 07/25/17 10:02 97.7 71 20 109/61 (77) 98 I/O 07/25/17 07/25/17 07/25/17 07/26/17 07/26/17 07/26/17 07:00 15:00 23:00 07:00 15:00 23:00 # Voids 3 Imaging Last Impressions Modified Barium Swallow 07/24/17 0000 Signed Impressions: Service Date/Time: Monday, July 24, 2017 10:10 - CONCLUSION: Negative for aspiration. Jonathan Sumner MD FACR Chest X-Ray 07/21/17 0600 Signed Impressions: Service Date/Time: Friday, July 21, 2017 05:02 - CONCLUSION: Right base consolidation/atelectasis and possible effusion. Kristian Fierro MD Brain MRI 07/17/17 0000 Signed Impressions: Service Date/Time: Monday, July 17, 2017 12:31 - CONCLUSION: 1. No acute intracranial abnormality. 2. Scattered fluid signal throughout the mastoid air cells bilaterally. Clinical evaluation for any signs of acute mastoiditis suggested. Michael Huitron Jr., MD Barium Swallow X-Ray 07/14/17 0000 Signed Impressions: Service Date/Time: Friday, July 14, 2017 11:58 - CONCLUSION: 1. There was penetration of barium into the airway with coating of the inferior aspect of the epiglottis but no definite aspiration. Rehabilitation swallow service would be indicated for further assessment. 2. No findings to indicate esophageal obstruction were identified. Silvestre Sumner MD Cervical Spine MRI 07/10/17 Signed Impressions: Service Date/Time: Monday, July 10, 2017 16:30 - CONCLUSION: Very large right paracentral disc herniation at C3-4 obliterating the right lateral recess and neural foramen Kristian Avery MD Head CT 07/09/171950 Signed Impressions: Service Date/Time: Sunday, July 09, 2017 20:45 - CONCLUSION: No acute disease. Kristian Fierro MD Cervical Spine CT 07/09/17 Signed Impressions: Service Date/Time: Sunday, July 09, 2017 20:45 - CONCLUSION: 1. Focal lucent lesion at the anterior-inferior aspect of the C3 vertebral body. Much of the anterior cortex over this region is missing. There is some fragmentation at the anterior-inferior cortex which may represent some minimal fracturing of the anterior-inferior aspect of the C3 vertebral body at the margin of this lucent mass. The remaining aspect of the C3 vertebral body is intact. 2. Right lateral recess mild disc protrusion at the C3-C4 level. There does appear to be increased soft tissue density in the anterior right lateral epidural space at this region and extending to the C2-3 level. This could be secondary to some degree of superior extrusion and/or some degree of accompanying hemorrhage. There does continue to be CSF around the cord at these levels. 3. Air within the epidural space and the prevertebral soft tissues likely from disruption of the C3-4 disc. 4. The cervical spine could be further evaluated with an MRI examination with and without contrast. The above information was relayed to Dr. Portillo by telephone. Kristian Fierro MD CT Angiography 07/09/17 Signed Impressions: Service Date/Time: Sunday, July 09, 2017 23:22 - CONCLUSION: 1. No pulmonary embolus. 2. Suspected pulmonary artery hypertension. 3. Mild to moderate emphysema. 4. Patchy bilateral infiltrate including bilateral nodular areas which are most likely infectious or inflammatory. Followup noncontrast chest CT is recommended in approximately 3 months. The nonspecific mildly enlarged right hilar lymph node should be rechecked at that time as well. 5. Tiny pericardial effusion. Kristian Abraham MD Objective Remarks awake and alert, oriented x 3, NAD anicteric lungs- clear no rales or wheezes regular rhythm abodmen soft, nontender extremities no edema neuro exam- unremarkable Date of Insertion: Jul 15, 2017 Line: Central Venous Catheter Side: Left Location: Internal, Jugular A/P Problem List: (1) Bilateral pneumonia ICD Code: J18.9 - Pneumonia, unspecified organism (2) Hypoxemia ICD Code: R09.02 - Hypoxemia Status: Acute Assessment and Plan 56-year-old female admitted secondary to respiratory failure and pneumonia. Patient was on ventilation greater than 1 week. Now improving. Global weakness is her primary issue at this point and she'll need further PT prior to discharge home as she does not qualify for group home facility, due to lack of access for financial reasons. Sepsis Resolved Bilateral pneumonia Aspiration pneumonia Respiratory failure Patient is now off the vent Continue to monitor respiratory status Oxygen as needed Continue nebulized treatments Continue incentive spirometry Continue Capella DC IV solumedrol (on 40 mg IV bid since 07/17) and change to po Prednisone 20 mg bid - taper will d/w ID- S/P antibiotics Seizure Hx No active treatment needed at this time EtOH abuse Continue daily thiamine Continue folic acid continue multivitamin Dysphagia Severe protein calorie malnutrition Tolerating diet thus far Modified barium swallow study showed no suzanne aspiration on 07/14/17 Repeat modified barium swallow study Leukocytosis Macrocytosis follow CBC Escherichia coli/Pseudomonas urinary tract infection Treatment completed on 07/19/17 Hypophosphatemia Monitor phosphate levels Replace as needed General debilitation Improving slowly Patient's lack of insurance disqualifies her for [place] group home facility placement She's intending to return to home once functional status increases Continue PT- very motivated Continue OT- very motivated DVT prophylaxis SCDs King Bradley MD Jul 26, 2017 09:19
[2017-07-26 12:25] VITALS: BP 106/58; PULSE 77; RESP 20; TEMP 99.7; O2SAT 96
[2017-07-26 13:58] LABS: AUTOMATED NEUTROPHIL # 13.5 TH/MM3 (1.8-7.7); BASOPHIL % 0.1 % (0.0-2.0); HEMATOCRIT 36.6 % (35.0-46.0); HEMO FLAGS DIFF FINAL; LYMPH % 1.9 % (9.0-44.0); LYMPHOCYTE # 0.3 TH/MM3 (1.0-4.8); MEAN CELL VOLUME 105.4 FL (80.0-100.0); MEAN CORPUSCULAR HEMOGLOBIN 35.6 PG (27.0-34.0); MEAN CORPUSCULAR HGB CONC 33.8 % (32.0-36.0); PLATELET COUNT 329 TH/MM3 (150-450); RED BLOOD COUNT 3.47 MIL/MM3 (4.00-5.30); RED CELL DISTRIBUTION WIDTH 14.9 % (11.6-17.2); WHITE BLOOD COUNT 14.3 TH/MM3 (4.0-11.0)
--- NOTE | 2017-07-26 16:35 | HHI.PR ---
Addendum to Inpatient Note Additional Information ID Xcover Pt was seen by me @ [id number] full note to follow - k Christine Ware MD Jul 26, 2017 16:35
[2017-07-26 16:37] VITALS: BP 98/52; PULSE 84; RESP 20; TEMP 97.9; O2SAT 95
--- NOTE | 2017-07-26 17:27 | RADRPT ---
EXAM DATE/TIME: 07/26/2017 17:31 [facility] COMPARISON: CHEST SINGLE AP, July 21, 2017, 5:02. INDICATIONS : Pneumonia. MEDICAL HISTORY : Chronic obstructive pulmonary disease. cancer of vocal cords. SURGICAL HISTORY : Cholecystectomy. Hysterectomy. ENCOUNTER: Subsequent ACUITY: 3 days PAIN SCORE: 0/10 LOCATION: Bilateral chest FINDINGS: A single view of the chest demonstrates the lungs to be symmetrically aerated without evidence of mas s, infiltrate or effusion. The previously noted right lower lung infiltrate has essentially resolved. There is mild elevation of the right hemidiaphragm. The cardiomediastinal contours are unremarkable . Osseous structures are stable. CONCLUSION: No acute disease. Davidson Vega MD on July 26, 2017 at 17:25 Board Certified Radiologist. This report was verified electronically.
[2017-07-26] MEDS: ENOXAPARIN SODIUM 30 MG/0.3 ML SYRINGE SQ SCH (17:32)
--- NOTE | 2017-07-26 19:49 | HHI.IDPN ---
Subjective Subjective Remarks chart reviewed ID Xcover for Dr Devlin Pt was seen by me @ 1630 pt is now on 2 L of NC O2 no fever cough improved , minimal sputum WBC is steady on 14 K Off abx since 07/19 no co Antibiotics none Lines Line sites with no e.o infection Past Medical History reviewed Allergies: Coded Allergies: penicillin G (Verified Allergy, Severe, hives, 07/09/17) Objective . Vital Signs Date Time Temp Pulse Resp B/P (MAP) Pulse Ox O2 Delivery O2 Flow Rate FiO2 07/26/17 16:37 97.9 84 20 98/52 (67) 95 07/26/17 12:25 99.7 77 20 106/58 (74) 96 07/26/17 08:06 97.4 72 20 118/57 (77) 97 07/26/17 05:09 97.3 67 16 106/56 (73) 95 07/26/17 00:00 97.7 77 16 107/62 (77) 95 07/25/17 20:27 97.3 91 18 117/77 (90) 98 07/25/17 19:56 95 07/26/17 07/26/17 07/27/17 15:00 23:00 07:00 Intake Total 660 ml Balance 660 ml Intake Oral 660 ml . Laboratory Tests Test 07/26/17 13:40 White Blood Count 14.3 TH/MM3 Red Blood Count 3.47 MIL/MM3 Hemoglobin 12.4 GM/DL Hematocrit 36.6 % Mean Corpuscular Volume 105.4 FL Mean Corpuscular Hemoglobin 35.6 PG Mean Corpuscular Hemoglobin Concent 33.8 % Red Cell Distribution Width 14.9 % Platelet Count 329 TH/MM3 Mean Platelet Volume 9.3 FL Neutrophils (%) (Auto) 94.0 % Lymphocytes (%) (Auto) 1.9 % Monocytes (%) (Auto) 4.0 % Eosinophils (%) (Auto) 0.0 % Basophils (%) (Auto) 0.1 % Neutrophils # (Auto) 13.5 TH/MM3 Lymphocytes # (Auto) 0.3 TH/MM3 Monocytes # (Auto) 0.6 TH/MM3 Eosinophils # (Auto) 0.0 TH/MM3 Basophils # (Auto) 0.0 TH/MM3 CBC Comment DIFF FINAL Differential Comment Imaging Last Impressions Chest X-Ray 07/26/17 0000 Signed Impressions: Service Date/Time: Wednesday, July 26, 2017 17:31 - CONCLUSION: No acute disease. Davidson Vega MD Modified Barium Swallow 07/24/17 0000 Signed Impressions: Service Date/Time: Monday, July 24, 2017 10:10 - CONCLUSION: Negative for aspiration. Jonathan Sumner MD FACR Brain MRI 07/17/17 0000 Signed Impressions: Service Date/Time: Monday, July 17, 2017 12:31 - CONCLUSION: 1. No acute intracranial abnormality. 2. Scattered fluid signal throughout the mastoid air cells bilaterally. Clinical evaluation for any signs of acute mastoiditis suggested. Michael Huitron Jr., MD Barium Swallow X-Ray 07/14/17 Signed Impressions: Service Date/Time: Friday, July 14, 2017 11:58 - CONCLUSION: 1. There was penetration of barium into the airway with coating of the inferior aspect of the epiglottis but no definite aspiration. Rehabilitation swallow service would be indicated for further assessment. 2. No findings to indicate esophageal obstruction were identified. Silvestre Sumner MD Cervical Spine MRI 07/10/17 Signed Impressions: Service Date/Time: Monday, July 10, 2017 16:30 - CONCLUSION: Very large right paracentral disc herniation at C3-4 obliterating the right lateral recess and neural foramen Kristian Avery MD Head CT [id number]/09/171950 Signed Impressions: Service Date/Time: Sunday, July 09, 2017 20:45 - CONCLUSION: No acute disease. Kristian Fierro MD Cervical Spine CT 07/09/17 Signed Impressions: Service Date/Time: Sunday, July 09, 2017 20:45 - CONCLUSION: 1. Focal lucent lesion at the anterior-inferior aspect of the C3 vertebral body. Much of the anterior cortex over this region is missing. There is some fragmentation at the anterior-inferior cortex which may represent some minimal fracturing of the anterior-inferior aspect of the C3 vertebral body at the margin of this lucent mass. The remaining aspect of the C3 vertebral body is intact. 2. Right lateral recess mild disc protrusion at the C3-C4 level. There does appear to be increased soft tissue density in the anterior right lateral epidural space at this region and extending to the C2-3 level. This could be secondary to some degree of superior extrusion and/or some degree of accompanying hemorrhage. There does continue to be CSF around the cord at these levels. 3. Air within the epidural space and the prevertebral soft tissues likely from disruption of the C3-4 disc. 4. The cervical spine could be further evaluated with an MRI examination with and without contrast. The above information was relayed to Dr. Portillo by telephone. Kristian Fierro MD CT Angiography 07/09/17 0000 Signed Impressions: Service Date/Time: Sunday, July 09, 2017 23:22 - CONCLUSION: 1. No pulmonary embolus. 2. Suspected pulmonary artery hypertension. 3. Mild to moderate emphysema. 4. Patchy bilateral infiltrate including bilateral nodular areas which are most likely infectious or inflammatory. Followup noncontrast chest CT is recommended in approximately 3 months. The nonspecific mildly enlarged right hilar lymph node should be rechecked at that time as well. 5. Tiny pericardial effusion. Kristian Abraham MD Physical Exam GENERAL: Thin built poorly-nourished, well-developed patient, in no apparent distress. SKIN: No rashes, ecchymoses or lesions. Cool and dry. HEAD: Atraumatic. Normocephalic. No temporal or scalp tenderness. EYES: Pupils equal round and reactive. Extraocular motions intact. No scleral icterus. No injection or drainage. ENT: Airway patent. No ulcers. NECK: Trachea midline. Supple, nontender, no meningeal signs. CARDIOVASCULAR: Regular rate and rhythm without murmurs, gallops, or rubs. RESPIRATORY: Clear to auscultation. Breath sounds equal bilaterally. No wheezes , rales, or rhonchi. GASTROINTESTINAL: Abdomen soft, non-tender, nondistended. MUSCULOSKELETAL: Extremities without clubbing, cyanosis, or edema. NEUROLOGICAL: awake alert non focal IV line sites with no e.o infection. Assessment & Plan Remarks Aspiration Pneumonia/HCAP sp 5 days of abx clinically resolved Acute resp failure- resolved E.coli PSAE UTI vs colonization Alcoholism Weight loss Dysphagia Prior Head neck cancer s/p radiation C3-4 large disc herniation Depression Lekocytosis ? sterroids induced; clinically not favouring infx Recs: chk CXR will hold off abx unless shows signs off infx dw Christine Larry MD Jul 26, 2017 19:49
[2017-07-26] MEDS: predniSONE 20 MG TAB PO SCH (20:42)
[2017-07-26 20:52] VITALS: BP 119/61; PULSE 97; RESP 18; TEMP 97.6; O2SAT 94
[2017-07-27 00:44] VITALS: BP 114/58; PULSE 86; RESP 18; TEMP 97.9; O2SAT 95
[2017-07-27 04:11] VITALS: BP 99/61; PULSE 72; RESP 16; TEMP 97.9; O2SAT 97
[2017-07-27] MEDS: guaiFENesin SOLUTION 200 MG/10 ML CUP PO SCH ×3 (05:55→20:46)
[2017-07-27] MEDS: INSULIN NovoLIN REGULAR SUPPLEMENTAL SCALE SQ SCH ×2 (06:00)
[2017-07-27] MEDS: RESP: BUDESONIDE 0.5 MG/2 ML NEB NEB SCH ×2 (07:42→19:38)
[2017-07-27 08:00] VITALS: BP 107/63; PULSE 73; RESP 16; TEMP 97.6; O2SAT 98
[2017-07-27] MEDS: predniSONE 20 MG TAB PO SCH ×2 (08:32→20:53)
[2017-07-27] MEDS: SODIUM CHLORIDE 0.9% FLUSH 10 ML FLUSH IV FLUSH SCH ×2 (08:32→08:34)
[2017-07-27] MEDS: THIAMINE HCL 100 MG TAB PO SCH (08:32)
[2017-07-27] MEDS: LANSOPRAZOLE SOLUTAB 30 MG TAB NG SCH (08:32)
[2017-07-27] MEDS: SENNOSIDES SYRUP 8.8 MG/5 ML CUP PO SCH ×2 (08:35→21:00)
[2017-07-27] MEDS: DOCUSATE SODIUM 100 MG/10 ML UDC PO SCH ×2 (08:35→21:00)
--- NOTE | 2017-07-27 11:30 | HHI.PR ---
Subjective Remarks no complains very motivated statyes have all equipments at home- partneer recently had orthopedic surgery Objective Vitals Vital Signs Date Time Temp Pulse Resp B/P (MAP) Pulse Ox O2 Delivery O2 Flow Rate FiO2 07/27/17 11:16 16 07/27/17 08:00 97.6 73 16 107/63 (78) 98 07/27/17 04:11 97.9 72 16 99/61 (74) 97 07/27/17 00:44 97.9 86 18 114/58 (76) 95 07/26/17 20:52 97.6 97 18 119/61 (80) 94 07/26/17 16:37 97.9 84 20 98/52 (67) 95 07/26/17 12:25 99.7 77 20 106/58 (74) 96 I/O 07/26/17 07/26/17 07/26/17 07/27/17 07/27/17 07/27/17 07:00 15:00 23:00 07:00 15:00 23:00 Intake Total 660 ml Balance 660 ml Intake Oral 660 ml # Voids 1 3 Result Diagram: 07/26/17 1340 Imaging Last Impressions Chest X-Ray 07/26/17 0000 Signed Impressions: Service Date/Time: Wednesday, July 26, 2017 17:31 - CONCLUSION: No acute disease. Davidsno Vega MD Modified Barium Swallow 07/24/17 0000 Signed Impressions: Service Date/Time: Monday, July 24, 2017 10:10 - CONCLUSION: Negative for aspiration. Jonathan Sumner MD FACR Brain MRI 07/17/17 0000 Signed Impressions: Service Date/Time: Monday, July 17, 2017 12:31 - CONCLUSION: 1. No acute intracranial abnormality. 2. Scattered fluid signal throughout the mastoid air cells bilaterally. Clinical evaluation for any signs of acute mastoiditis suggested. Michael Huitron Jr., MD Barium Swallow X-Ray 07/14/17 0000 Signed Impressions: Service Date/Time: Friday, July 14, 2017 11:58 - CONCLUSION: 1. There was penetration of barium into the airway with coating of the inferior aspect of the epiglottis but no definite aspiration. Rehabilitation swallow service would be indicated for further assessment. 2. No findings to indicate esophageal obstruction were identified. Silvestre Sumner MD Cervical Spine MRI 07/10/17 0000 Signed Impressions: Service Date/Time: Monday, July 10, 2017 16:30 - CONCLUSION: Very large right paracentral disc herniation at C3-4 obliterating the right lateral recess and neural foramen Kristian Avery MD Head CT 07/09/171950 Signed Impressions: Service Date/Time: Sunday, July 09, 2017 20:45 - CONCLUSION: No acute disease. Kristian Fierro MD Cervical Spine CT 07/09/17 0000 Signed Impressions: Service Date/Time: Sunday, July 09, 2017 20:45 - CONCLUSION: 1. Focal lucent lesion at the anterior-inferior aspect of the C3 vertebral body. Much of the anterior cortex over this region is missing. There is some fragmentation at the anterior-inferior cortex which may represent some minimal fracturing of the anterior-inferior aspect of the C3 vertebral body at the margin of this lucent mass. The remaining aspect of the C3 vertebral body is intact. 2. Right lateral recess mild disc protrusion at the C3-C4 level. There does appear to be increased soft tissue density in the anterior right lateral epidural space at this region and extending to the C2-3 level. This could be secondary to some degree of superior extrusion and/or some degree of accompanying hemorrhage. There does continue to be CSF around the cord at these levels. 3. Air within the epidural space and the prevertebral soft tissues likely from disruption of the C3-4 disc. 4. The cervical spine could be further evaluated with an MRI examination with and without contrast. The above information was relayed to Dr. Portillo by telephone. Kristian Fierro MD CT Angiography 07/09/17 0000 Signed Impressions: Service Date/Time: Sunday, July 09, 2017 23:22 - CONCLUSION: 1. No pulmonary embolus. 2. Suspected pulmonary artery hypertension. 3. Mild to moderate emphysema. 4. Patchy bilateral infiltrate including bilateral nodular areas which are most likely infectious or inflammatory. Followup noncontrast chest CT is recommended in approximately 3 months. The nonspecific mildly enlarged right hilar lymph node should be rechecked at that time as well. 5. Tiny pericardial effusion. Kristian Abraham MD Objective Remarks awake and alert, oriented x 3, NAD anicteric lungs- clear no rales or wheezes regular rhythm abdomen soft, nontender extremities no edema neuro exam- unremarkable Date of Insertion: Jul 15, 2017 Line: Central Venous Catheter Side: Left Location: Internal, Jugular A/P Problem List: (1) Bilateral pneumonia ICD Code: J18.9 - Pneumonia, unspecified organism (2) Hypoxemia ICD Code: R09.02 - Hypoxemia Status: Acute Assessment and Plan 56-year-old female admitted secondary to respiratory failure and pneumonia. Patient was on ventilation greater than 1 week. Now improving. Global weakness is her primary issue at this point and she'll need further PT prior to discharge home as she does not qualify for [facility] facility, due to lack of access for financial reasons. Sepsis Resolved Bilateral pneumonia Aspiration pneumonia Respiratory failure off the vent Continue to monitor respiratory status Oxygen as needed- good sats at room air Continue nebulized treatments Continue incentive spirometry Continue Capella DC IV solumedrol (on 40 mg IV bid since 07/17) and change to po Prednisone 20 mg bid - taper d/w ID- S/P antibiotics- completed Seizure Hx No active treatment needed at this time EtOH abuse Continue daily thiamine Continue folic acid continue multivitamin Dysphagia Severe protein calorie malnutrition Tolerating diet thus far Modified barium swallow study showed no suzanne aspiration on 07/14/17 Repeat modified barium swallow study Leukocytosis Macrocytosis follow CBC Escherichia coli/Pseudomonas urinary tract infection Treatment completed on 07/19/17 Hypophosphatemia Monitor phosphate levels Replace as needed General debilitation Improving slowly Patient's lack of insurance disqualifies her for [place] [facility] facility placement She's intending to return to home once functional status increases Continue PT- very motivated Continue OT- very motivated needs to be more ambulatory for safe discharge DVT prophylaxis SCDs King Bradley MD Jul 27, 2017 11:30
[2017-07-27 12:00] VITALS: BP 111/53; PULSE 76; RESP 16; TEMP 97.6; O2SAT 99
[2017-07-27 16:00] VITALS: BP 108/63; PULSE 83; RESP 16; TEMP 97.8; O2SAT 95
[2017-07-27] MEDS: ENOXAPARIN SODIUM 30 MG/0.3 ML SYRINGE SQ SCH (17:57)
[2017-07-27 20:48] VITALS: BP 106/53; PULSE 88; RESP 20; TEMP 94.8; O2SAT 95
[2017-07-28] VITALS (8 sets, daily range): BP systolic 103–121; BP diastolic 55–74; PULSE 71–97; RESP 20–22; TEMP 97.6–98.4; O2SAT 94–99
[2017-07-28] MEDS: guaiFENesin SOLUTION 200 MG/10 ML CUP PO SCH ×3 (05:27→20:16)
[2017-07-28] MEDS: RESP: BUDESONIDE 0.5 MG/2 ML NEB NEB SCH ×2 (08:44→19:46)
[2017-07-28] MEDS: LANSOPRAZOLE SOLUTAB 30 MG TAB NG SCH (09:00)
[2017-07-28] MEDS: SODIUM CHLORIDE 0.9% FLUSH 10 ML FLUSH IV FLUSH SCH ×3 (09:00→20:46)
[2017-07-28] MEDS: DOCUSATE SODIUM 100 MG/10 ML UDC PO SCH ×2 (09:00→20:46)
[2017-07-28] MEDS: THIAMINE HCL 100 MG TAB PO SCH (09:22)
[2017-07-28] MEDS: predniSONE 20 MG TAB PO SCH ×2 (09:22→20:16)
[2017-07-28] MEDS: SENNOSIDES SYRUP 8.8 MG/5 ML CUP PO SCH ×2 (09:24→20:46)
--- NOTE | 2017-07-28 11:41 | HHI.PR ---
Subjective Remarks doing very well with PT very motiovated no complains able to get around her from bed to commode Objective Vitals Vital Signs Date Time Temp Pulse Resp B/P (MAP) Pulse Ox O2 Delivery O2 Flow Rate FiO2 07/28/17 11:23 97.9 79 20 121/58 (79) 97 07/28/17 08:46 98 07/28/17 08:18 97.6 71 20 117/68 (84) 97 07/28/17 05:07 97.7 72 20 103/58 (73) 99 07/28/17 00:27 97.8 96 20 113/59 (77) 95 07/27/17 20:48 94.8 88 20 106/53 (70) 95 07/27/17 16:00 97.8 83 16 108/63 (78) 95 07/27/17 15:14 16 07/27/17 12:00 97.6 76 16 111/53 (72) 99 I/O 07/27/17 07/27/17 07/27/17 07/28/17 07/28/17 07/28/17 07:00 15:00 23:00 07:00 15:00 23:00 Intake Total 600 ml Balance 600 ml Intake Oral 600 ml # Voids 3 5 3 # Bowel Movements 1 Result Diagram: 07/26/17 1340 Imaging Last Impressions Chest X-Ray 07/26/17 0000 Signed Impressions: Service Date/Time: Wednesday, July 26, 2017 17:31 - CONCLUSION: No acute disease. Davidson Vega MD Modified Barium Swallow 07/24/17 0000 Signed Impressions: Service Date/Time: Monday, July 24, 2017 10:10 - CONCLUSION: Negative for aspiration. Jonathan Sumner MD FACR Brain MRI 07/17/17 0000 Signed Impressions: Service Date/Time: Monday, July 17, 2017 12:31 - CONCLUSION: 1. No acute intracranial abnormality. 2. Scattered fluid signal throughout the mastoid air cells bilaterally. Clinical evaluation for any signs of acute mastoiditis suggested. Michael Huitron Jr., MD Barium Swallow X-Ray 07/14/17 0000 Signed Impressions: Service Date/Time: Friday, July 14, 2017 11:58 - CONCLUSION: 1. There was penetration of barium into the airway with coating of the inferior aspect of the epiglottis but no definite aspiration. Rehabilitation swallow service would be indicated for further assessment. 2. No findings to indicate esophageal obstruction were identified. Silvestre Sumner MD Cervical Spine MRI 07/10/17 Signed Impressions: Service Date/Time: Monday, July 10, 2017 16:30 - CONCLUSION: Very large right paracentral disc herniation at C3-4 obliterating the right lateral recess and neural foramen Kristian Avery MD Head CT 07/09/171950 Signed Impressions: Service Date/Time: Sunday, July 09, 2017 20:45 - CONCLUSION: No acute disease. Kristian Fierro MD Cervical Spine CT 07/09/17 Signed Impressions: Service Date/Time: Sunday, July 09, 2017 20:45 - CONCLUSION: 1. Focal lucent lesion at the anterior-inferior aspect of the C3 vertebral body. Much of the anterior cortex over this region is missing. There is some fragmentation at the anterior-inferior cortex which may represent some minimal fracturing of the anterior-inferior aspect of the C3 vertebral body at the margin of this lucent mass. The remaining aspect of the C3 vertebral body is intact. 2. Right lateral recess mild disc protrusion at the C3-C4 level. There does appear to be increased soft tissue density in the anterior right lateral epidural space at this region and extending to the C2-3 level. This could be secondary to some degree of superior extrusion and/or some degree of accompanying hemorrhage. There does continue to be CSF around the cord at these levels. 3. Air within the epidural space and the prevertebral soft tissues likely from disruption of the C3-4 disc. 4. The cervical spine could be further evaluated with an MRI examination with and without contrast. The above information was relayed to Dr. Portillo by telephone. Kristian Fierro MD CT Angiography 07/09/17 Signed Impressions: Service Date/Time: Sunday, July 09, 2017 23:22 - CONCLUSION: 1. No pulmonary embolus. 2. Suspected pulmonary artery hypertension. 3. Mild to moderate emphysema. 4. Patchy bilateral infiltrate including bilateral nodular areas which are most likely infectious or inflammatory. Followup noncontrast chest CT is recommended in approximately 3 months. The nonspecific mildly enlarged right hilar lymph node should be rechecked at that time as well. 5. Tiny pericardial effusion. Kristian Abraham MD Objective Remarks awake and alert, oriented x 3, NAD anicteric lungs-no rales or wheezes regular rhythm abdomen soft, nontender extremities no edema neuro exam- unremarkable Date of Insertion: Jul 15, 2017 Line: Central Venous Catheter Side: Left Location: Internal, Jugular A/P Problem List: (1) Bilateral pneumonia ICD Code: J18.9 - Pneumonia, unspecified organism (2) Hypoxemia ICD Code: R09.02 - Hypoxemia Status: Acute Assessment and Plan 56-year-old female admitted secondary to respiratory failure and pneumonia. Patient was on ventilation greater than 1 week. Now improving. Global weakness is her primary issue at this point and she'll need further PT prior to discharge home as she does not qualify for [facility], due to lack of access for financial reasons. Sepsis Resolved Bilateral pneumonia/Aspiration pneumonia. resolved Continue to monitor respiratory status Oxygen as needed- good sats at room air Continue nebulized treatments Continue incentive spirometry Continue Capella DC IV solumedrol (on 40 mg IV bid since 07/17) and change to po Prednisone 20 mg bid - taper 07/27 d/w ID- S/P antibiotics- completed Seizure Hx No active treatment needed at this time EtOH abuse Continue daily thiamine Continue folic acid continue multivitamin Dysphagia Severe protein calorie malnutrition Tolerating diet thus far Modified barium swallow study showed no suzanne aspiration on 07/14/17 Leukocytosis- improved Escherichia coli/Pseudomonas urinary tract infection Treatment completed on 07/19/17 Hypophosphatemia- resolved General debilitation Improving Patient's lack of insurance disqualifies her for [place] [facility] facility placement She's intending to return to home once functional status increases Continue PT- very motivated Continue OT- very motivated needs to be more ambulatory for safe discharge- reconsult CM DVT prophylaxis SCDs King Bradley MD Jul 28, 2017 11:41
[2017-07-28] MEDS: ENOXAPARIN SODIUM 30 MG/0.3 ML SYRINGE SQ SCH (17:42)
[2017-07-29] VITALS (7 sets, daily range): BP systolic 102–116; BP diastolic 53–55; PULSE 71–104; RESP 18–20; TEMP 97.5–98.1; O2SAT 92–97
[2017-07-29] MEDS: guaiFENesin SOLUTION 200 MG/10 ML CUP PO SCH (05:52)
[2017-07-29] MEDS: RESP: BUDESONIDE 0.5 MG/2 ML NEB NEB SCH ×2 (07:34→19:37)
[2017-07-29] MEDS: predniSONE 20 MG TAB PO SCH (08:11)
[2017-07-29] MEDS: DOCUSATE SODIUM 100 MG/10 ML UDC PO SCH ×2 (08:11→20:23)
[2017-07-29] MEDS: LANSOPRAZOLE SOLUTAB 30 MG TAB PO SCH (08:11)
[2017-07-29] MEDS: SENNOSIDES SYRUP 8.8 MG/5 ML CUP PO SCH ×2 (08:12→20:23)
[2017-07-29] MEDS: SODIUM CHLORIDE 0.9% FLUSH 10 ML FLUSH IV FLUSH SCH ×3 (08:14→20:24)
[2017-07-29] MEDS: ALBUTEROL SULFATE 90 MCG/ACT HFA 8 GM INHALER INH SCH ×3 (09:00→20:24)
[2017-07-29] MEDS: BECLOMETHASONE DIPROPIONATE 80 MCG/ACT 8.7 GM INHALER INH SCH ×2 (09:01→20:24)
[2017-07-29] MEDS: TIOTROPIUM BROMIDE 18 MCG INH INH SCH (09:02)
[2017-07-29] MEDS: THIAMINE HCL 100 MG TAB PO SCH (09:04)
--- NOTE | 2017-07-29 13:28 | HHI.PR ---
Subjective Remarks doing much better, po 100% ambulating more - no need for 02 requesting for roxicodone on DC Objective Vitals Vital Signs Date Time Temp Pulse Resp B/P (MAP) Pulse Ox O2 Delivery O2 Flow Rate FiO2 07/29/17 11:52 97.8 104 20 106/55 (72) 97 07/29/17 09:11 20 07/29/17 08:03 Room Air 07/29/17 07:54 97.6 73 20 103/54 (70) 96 07/29/17 04:00 98.1 71 18 116/55 (75) 97 07/29/17 00:28 97.8 86 18 102/55 (71) 96 07/28/17 20:00 98.1 97 22 112/74 (87) 94 07/28/17 19:47 97 07/28/17 16:20 98.4 96 20 103/55 (71) 95 I/O 07/28/17 07/28/17 07/28/17 07/29/17 07/29/17 07/29/17 07:00 15:00 23:00 07:00 15:00 23:00 Intake Total 600 ml Balance 600 ml Intake Oral 600 ml # Voids 3 4 2 # Bowel Movements 2 0 1 Result Diagram: 07/26/17 1340 Imaging Last Impressions Chest X-Ray 07/26/17 0000 Signed Impressions: Service Date/Time: Wednesday, July 26, 2017 17:31 - CONCLUSION: No acute disease. Davidson Vega MD Modified Barium Swallow 07/24/17 0000 Signed Impressions: Service Date/Time: Monday, July 24, 2017 10:10 - CONCLUSION: Negative for aspiration. Jonathan Sumner MD FACR Brain MRI 07/17/17 0000 Signed Impressions: Service Date/Time: Monday, July 17, 2017 12:31 - CONCLUSION: 1. No acute intracranial abnormality. 2. Scattered fluid signal throughout the mastoid air cells bilaterally. Clinical evaluation for any signs of acute mastoiditis suggested. Michael Huitron Jr., MD Barium Swallow X-Ray 07/14/17 0000 Signed Impressions: Service Date/Time: Friday, July 14, 2017 11:58 - CONCLUSION: 1. There was penetration of barium into the airway with coating of the inferior aspect of the epiglottis but no definite aspiration. Rehabilitation swallow service would be indicated for further assessment. 2. No findings to indicate esophageal obstruction were identified. Silvestre Sumner MD Cervical Spine MRI 07/10/17 Signed Impressions: Service Date/Time: Monday, July 10, 2017 16:30 - CONCLUSION: Very large right paracentral disc herniation at C3-4 obliterating the right lateral recess and neural foramen Kristian Avery MD Head CT 07/09/171950 Signed Impressions: Service Date/Time: Sunday, July 09, 2017 20:45 - CONCLUSION: No acute disease. Kristian Fierro MD Cervical Spine CT 07/09/17 0000 Signed Impressions: Service Date/Time: Sunday, July 09, 2017 20:45 - CONCLUSION: 1. Focal lucent lesion at the anterior-inferior aspect of the C3 vertebral body. Much of the anterior cortex over this region is missing. There is some fragmentation at the anterior-inferior cortex which may represent some minimal fracturing of the anterior-inferior aspect of the C3 vertebral body at the margin of this lucent mass. The remaining aspect of the C3 vertebral body is intact. 2. Right lateral recess mild disc protrusion at the C3-C4 level. There does appear to be increased soft tissue density in the anterior right lateral epidural space at this region and extending to the C2-3 level. This could be secondary to some degree of superior extrusion and/or some degree of accompanying hemorrhage. There does continue to be CSF around the cord at these levels. 3. Air within the epidural space and the prevertebral soft tissues likely from disruption of the C3-4 disc. 4. The cervical spine could be further evaluated with an MRI examination with and without contrast. The above information was relayed to Dr. Portillo by telephone. Kristian Fierro MD CT Angiography 07/09/17 Signed Impressions: Service Date/Time: Sunday, July 09, 2017 23:22 - CONCLUSION: 1. No pulmonary embolus. 2. Suspected pulmonary artery hypertension. 3. Mild to moderate emphysema. 4. Patchy bilateral infiltrate including bilateral nodular areas which are most likely infectious or inflammatory. Followup noncontrast chest CT is recommended in approximately 3 months. The nonspecific mildly enlarged right hilar lymph node should be rechecked at that time as well. 5. Tiny pericardial effusion. Kristian Abraham MD Objective Remarks awake and alert, oriented x 3, NAD anicteric lungs-no rales or wheezes regular rhythm abdomen soft, nontender extremities no edema neuro exam- unremarkable Date of Insertion: Jul 15, 2017 Line: Central Venous Catheter Side: Left Location: Internal, Jugular A/P Problem List: (1) Bilateral pneumonia ICD Code: J18.9 - Pneumonia, unspecified organism (2) Hypoxemia ICD Code: R09.02 - Hypoxemia Status: Acute Assessment and Plan 56-year-old female admitted secondary to respiratory failure and pneumonia. Patient was on ventilation greater than 1 week. Now improving. Global weakness is her primary issue at this point and she'll need further PT prior to discharge home as she does not qualify for [facility] facility, due to lack of access for financial reasons. Sepsis Resolved Bilateral pneumonia/Aspiration pneumonia. resolved Continue to monitor respiratory status Oxygen as needed- good sats at room air Continue nebulized treatments Continue incentive spirometry Continue Capella DC IV solumedrol (on 40 mg IV bid since 07/17) and change to po Prednisone 20 mg bid - taper 07/27- taper to 10 mg po bid d/w ID- S/P antibiotics- completed Seizure Hx No active treatment needed at this time EtOH abuse Continue daily thiamine Continue folic acid continue multivitamin Dysphagia- tolerating po well Severe protein calorie malnutrition Tolerating diet thus far Modified barium swallow study showed no suzanne aspiration on 07/14/17 Leukocytosis- improved Escherichia coli/Pseudomonas urinary tract infection Treatment completed on 07/19/17 Hypophosphatemia- resolved General debilitation- Improving Patient's lack of insurance disqualifies her for [facility] facility placement She's intending to return to home once functional status increases Continue PT- very motivated Continue OT- very motivated needs to be more ambulatory for safe discharge- ambulating better-- per patient has DME at home DVT prophylaxis SCDs Lovenox Discharge Planning will ask CM to assist with DC meds - tomorrow King Alberts MD Jul 29, 2017 13:28
[2017-07-29] MEDS: ENOXAPARIN SODIUM 30 MG/0.3 ML SYRINGE SQ SCH (17:18)
[2017-07-29] MEDS: predniSONE 10 MG TAB PO SCH (20:23)
[2017-07-30 00:50] VITALS: BP 112/56; PULSE 93; RESP 20; TEMP 97.7; O2SAT 97
[2017-07-30] MEDS: ALBUTEROL SULFATE 90 MCG/ACT HFA 8 GM INHALER INH SCH ×3 (02:48→15:00)
[2017-07-30 04:51] VITALS: BP 96/55; PULSE 81; RESP 20; TEMP 97.7; O2SAT 95
[2017-07-30] MEDS: RESP: BUDESONIDE 0.5 MG/2 ML NEB NEB SCH (08:00)
[2017-07-30 08:42] VITALS: BP 104/57; PULSE 95; RESP 20; TEMP 97.7; O2SAT 98
[2017-07-30] MEDS: BECLOMETHASONE DIPROPIONATE 80 MCG/ACT 8.7 GM INHALER INH SCH (09:00)
[2017-07-30] MEDS: DOCUSATE SODIUM 100 MG/10 ML UDC PO SCH (09:00)
[2017-07-30] MEDS: SENNOSIDES SYRUP 8.8 MG/5 ML CUP PO SCH (09:00)
[2017-07-30] MEDS: SODIUM CHLORIDE 0.9% FLUSH 10 ML FLUSH IV FLUSH SCH ×2 (09:00→09:30)
[2017-07-30] MEDS: TIOTROPIUM BROMIDE 18 MCG INH INH SCH (09:26)
[2017-07-30] MEDS: LANSOPRAZOLE SOLUTAB 30 MG TAB PO SCH (09:29)
[2017-07-30] MEDS: predniSONE 10 MG TAB PO SCH (09:29)
[2017-07-30] MEDS: THIAMINE HCL 100 MG TAB PO SCH (09:29)
[2017-07-30 13:07] VITALS: BP 94/58; PULSE 99; RESP 20; TEMP 98; O2SAT 97
--- NOTE | 2017-07-30 13:12 | HHI.PR ---
Subjective Remarks feeling better complains of headache with Q jeanne Objective Vitals Vital Signs Date Time Temp Pulse Resp B/P (MAP) Pulse Ox O2 Delivery O2 Flow Rate FiO2 07/30/17 13:07 98.0 99 20 94/58 (70) 97 07/30/17 10:37 20 07/30/17 08:42 97.7 95 20 104/57 (73) 98 07/30/17 04:51 97.7 81 20 96/55 (69) 95 07/30/17 00:50 97.7 93 20 112/56 (74) 97 07/29/17 21:06 97.5 101 20 114/53 (73) 93 07/29/17 19:38 92 21 07/29/17 19:00 Room Air 07/29/17 16:14 98.1 94 20 109/53 (71) 94 I/O 07/29/17 07/29/17 07/29/17 07/30/17 07/30/17 07/30/17 07:00 15:00 23:00 07:00 15:00 23:00 Intake Total 720 ml Balance 720 ml Intake Oral 720 ml # Voids 2 3 1 # Bowel Movements 0 1 1 Result Diagram: 07/26/17 1340 Imaging Last Impressions Chest X-Ray 07/26/17 0000 Signed Impressions: Service Date/Time: Wednesday, July 26, 2017 17:31 - CONCLUSION: No acute disease. Davidson Vega MD Modified Barium Swallow 07/24/17 0000 Signed Impressions: Service Date/Time: Monday, July 24, 2017 10:10 - CONCLUSION: Negative for aspiration. Jonathan Sumner MD FACR Brain MRI 07/17/17 0000 Signed Impressions: Service Date/Time: Monday, July 17, 2017 12:31 - CONCLUSION: 1. No acute intracranial abnormality. 2. Scattered fluid signal throughout the mastoid air cells bilaterally. Clinical evaluation for any signs of acute mastoiditis suggested. Michael Huitron Jr., MD Barium Swallow X-Ray 07/14/17 0000 Signed Impressions: Service Date/Time: Friday, July 14, 2017 11:58 - CONCLUSION: 1. There was penetration of barium into the airway with coating of the inferior aspect of the epiglottis but no definite aspiration. Rehabilitation swallow service would be indicated for further assessment. 2. No findings to indicate esophageal obstruction were identified. Silvestre Sumner MD Cervical Spine MRI 07/10/17 Signed Impressions: Service Date/Time: Monday, July 10, 2017 16:30 - CONCLUSION: Very large right paracentral disc herniation at C3-4 obliterating the right lateral recess and neural foramen Kristian Avery MD Head CT [id number]/09/171950 Signed Impressions: Service Date/Time: Sunday, July 09, 2017 20:45 - CONCLUSION: No acute disease. Kristian Fierro MD Cervical Spine CT 07/09/17 Signed Impressions: Service Date/Time: Sunday, July 09, 2017 20:45 - CONCLUSION: 1. Focal lucent lesion at the anterior-inferior aspect of the C3 vertebral body. Much of the anterior cortex over this region is missing. There is some fragmentation at the anterior-inferior cortex which may represent some minimal fracturing of the anterior-inferior aspect of the C3 vertebral body at the margin of this lucent mass. The remaining aspect of the C3 vertebral body is intact. 2. Right lateral recess mild disc protrusion at the C3-C4 level. There does appear to be increased soft tissue density in the anterior right lateral epidural space at this region and extending to the C2-3 level. This could be secondary to some degree of superior extrusion and/or some degree of accompanying hemorrhage. There does continue to be CSF around the cord at these levels. 3. Air within the epidural space and the prevertebral soft tissues likely from disruption of the C3-4 disc. 4. The cervical spine could be further evaluated with an MRI examination with and without contrast. The above information was relayed to Dr. Portillo by telephone. Kristian Fierro MD CT Angiography 07/09/17 Signed Impressions: Service Date/Time: Sunday, July 09, 2017 23:22 - CONCLUSION: 1. No pulmonary embolus. 2. Suspected pulmonary artery hypertension. 3. Mild to moderate emphysema. 4. Patchy bilateral infiltrate including bilateral nodular areas which are most likely infectious or inflammatory. Followup noncontrast chest CT is recommended in approximately 3 months. The nonspecific mildly enlarged right hilar lymph node should be rechecked at that time as well. 5. Tiny pericardial effusion. Kristian Abraham MD Objective Remarks awake and alert, oriented x 3, NAD anicteric lungs-no rales or wheezes, good air entry regular rhythm abdomen soft, nontender extremities no edema neuro exam- unremarkable Date of Insertion: Jul 15, 2017 Line: Central Venous Catheter Side: Left Location: Internal, Jugular A/P Problem List: (1) Bilateral pneumonia ICD Code: J18.9 - Pneumonia, unspecified organism (2) Hypoxemia ICD Code: R09.02 - Hypoxemia Status: Acute Assessment and Plan 56-year-old female admitted secondary to respiratory failure and pneumonia. Patient was on ventilation greater than 1 week. Now improving. Global weakness is her primary issue at this point and she'll need further PT prior to discharge home as she does not qualify for retirement facility, due to lack of access for financial reasons. Sepsis Resolved Bilateral pneumonia/Aspiration pneumonia. resolved Continue to monitor respiratory status Oxygen as needed- good sats at room air Continue nebulized treatments Continue incentive spirometry Continue Capella DC IV solumedrol (on 40 mg IV bid since 07/17) and change to po Prednisone 20 mg bid - taper 07/27- taper to 10 mg po bid DC on Prednisone 10 mg po daily x 3 days the n 5 mg daily x 3 days then DC d/w ID- S/P antibiotics- completed Seizure Hx No active treatment needed at this time EtOH abuse Continue daily thiamine Continue folic acid continue multivitamin Dysphagia- tolerating po well Severe protein calorie malnutrition Tolerating diet thus far Modified barium swallow study showed no suzanne aspiration on 07/14/17 Leukocytosis- improved Escherichia coli/Pseudomonas urinary tract infection Treatment completed on 07/19/17 Hypophosphatemia- resolved General debilitation- Improving Patient's lack of insurance disqualifies her for [place] retirement facility placement She's intending to return to home once functional status increases Continue PT- very motivated Continue OT- very motivated ambulating better-- per patient has DME at home DVT prophylaxis SCDs Lovenox BOMe today- patient agreable Discharge Planning will ask CM to assist with DC meds - tomorrow King Alberts MD Jul 30, 2017 13:12
[2017-07-30] MEDS ORDERED: PREV30TA3 PO (13:26)
[2017-07-30] MEDS ORDERED: SYMB80AE INH (13:26)
[2017-07-30] MEDS ORDERED: MILL5TAB PO (13:26)
[2017-07-30] MEDS ORDERED: SPIRCAP INH (13:26)
[2017-07-30] MEDS ORDERED: VENTAER INH (13:26)
[2017-07-30] MEDS ORDERED: OXYC-392 PO (13:26)
--- NOTE | 2017-07-30 13:28 | HHI.DS ---
Discharge Summary Admission Date Jul 10, 2017 at 01:36 Discharge Date: Jul 30, 2017 Admitting Diagnosis COPD exacerbation, hypoxemia on RA, Acute cervical disc protrusion (1) Bilateral pneumonia ICD Code: J18.9 - Pneumonia, unspecified organism (2) Hypoxemia ICD Code: R09.02 - Hypoxemia Status: Acute Brief History - From Admission Written by Ana Velez, acting as scribe for Dr. Rosales on 07/10/17 at 04:45. The patient is seen in the CDU. The patient states that she came to the hospital because her oxygen was low, high blood pressure, neck and head pain. The patient came here from [facility] where she is being detoxified. She said she stood up there and felt weak and fell down face first a few days ago. Denies chest pain, palpations prior to fall. Denies syncope. She states she wasn't getting up, wasn't able to eat, wasn't able to take care of herself. She says she had a fever: once was over 101 and another time over 99. They didn 't like the way she was breathing. She also had a cough but she states this is a chronic smoker's cough. Her oxygen saturation was checked and it was in the 70's. Cough with sputum that was no different than her normal. Denies fever, chest pain, abdominal pain, nausea, vomiting, diarrhea, black or bloody stool. . CBC/BMP: 07/26/17 1340 Imaging Last Impressions Chest X-Ray 07/26/17 0000 Signed Impressions: Service Date/Time: Wednesday, July 26, 2017 17:31 - CONCLUSION: No acute disease. Davidson Vega MD Modified Barium Swallow 07/24/17 0000 Signed Impressions: Service Date/Time: Monday, July 24, 2017 10:10 - CONCLUSION: Negative for aspiration. Jonathan Sumner MD FACR Brain MRI 07/17/17 0000 Signed Impressions: Service Date/Time: Monday, July 17, 2017 12:31 - CONCLUSION: 1. No acute intracranial abnormality. 2. Scattered fluid signal throughout the mastoid air cells bilaterally. Clinical evaluation for any signs of acute mastoiditis suggested. Michael Huitron Jr., MD Barium Swallow X-Ray 07/14/17 Signed Impressions: Service Date/Time: Friday, July 14, 2017 11:58 - CONCLUSION: 1. There was penetration of barium into the airway with coating of the inferior aspect of the epiglottis but no definite aspiration. Rehabilitation swallow service would be indicated for further assessment. 2. No findings to indicate esophageal obstruction were identified. Silvestre Sumner MD Cervical Spine MRI 07/10/17 Signed Impressions: Service Date/Time: Monday, July 10, 2017 16:30 - CONCLUSION: Very large right paracentral disc herniation at C3-4 obliterating the right lateral recess and neural foramen Kristian Avery MD Head CT 07/09/171950 Signed Impressions: Service Date/Time: Sunday, July 09, 2017 20:45 - CONCLUSION: No acute disease. Kristian Fierro MD Cervical Spine CT 07/09/17 Signed Impressions: Service Date/Time: Sunday, July 09, 2017 20:45 - CONCLUSION: 1. Focal lucent lesion at the anterior-inferior aspect of the C3 vertebral body. Much of the anterior cortex over this region is missing. There is some fragmentation at the anterior-inferior cortex which may represent some minimal fracturing of the anterior-inferior aspect of the C3 vertebral body at the margin of this lucent mass. The remaining aspect of the C3 vertebral body is intact. 2. Right lateral recess mild disc protrusion at the C3-C4 level. There does appear to be increased soft tissue density in the anterior right lateral epidural space at this region and extending to the C2-3 level. This could be secondary to some degree of superior extrusion and/or some degree of accompanying hemorrhage. There does continue to be CSF around the cord at these levels. 3. Air within the epidural space and the prevertebral soft tissues likely from disruption of the C3-4 disc. 4. The cervical spine could be further evaluated with an MRI examination with and without contrast. The above information was relayed to Dr. Portillo by telephone. Kristian Fierro MD CT Angiography 07/09/17 Signed Impressions: Service Date/Time: Sunday, July 09, 2017 23:22 - CONCLUSION: 1. No pulmonary embolus. 2. Suspected pulmonary artery hypertension. 3. Mild to moderate emphysema. 4. Patchy bilateral infiltrate including bilateral nodular areas which are most likely infectious or inflammatory. Followup noncontrast chest CT is recommended in approximately 3 months. The nonspecific mildly enlarged right hilar lymph node should be rechecked at that time as well. 5. Tiny pericardial effusion. Kristian Abraham MD PE at Discharge awake and alert, oriented x 3, NAD anicteric lungs-no rales or wheezes, good air entry regular rhythm abdomen soft, nontender extremities no edema neuro exam- unremarkable Pt update on day of discharge afebrile good air entry Hospital Course 56-year-old female admitted secondary to respiratory failure and pneumonia. Patient was on ventilation greater than 1 week. Now improving. Global weakness is her primary issue at this point and she'll need further PT prior to discharge home as she does not qualify for [facility] facility, due to lack of access for financial reasons. Sepsis Resolved Bilateral pneumonia/Aspiration pneumonia. resolved Continue to monitor respiratory status Oxygen as needed- good sats at room air Continue nebulized treatments Continue incentive spirometry Continue Capella DC IV solumedrol (on 40 mg IV bid since 07/17) and change to po Prednisone 20 mg bid - taper 07/27- taper to 10 mg po bid DC on Prednisone 10 mg po daily x 3 days the n 5 mg daily x 3 days then DC d/w ID- S/P antibiotics- completed Seizure Hx No active treatment needed at this time EtOH abuse Continue daily thiamine Continue folic acid continue multivitamin Dysphagia- tolerating po well Severe protein calorie malnutrition Tolerating diet thus far Modified barium swallow study showed no suzanne aspiration on 07/14/17 Leukocytosis- improved Escherichia coli/Pseudomonas urinary tract infection Treatment completed on 07/19/17 Hypophosphatemia- resolved General debilitation- Improving Patient's lack of insurance disqualifies her for DC [facility] facility placement She's intending to return to home once functional status increases Continue PT- very motivated Continue OT- very motivated ambulating better-- per patient has DME at home DVT prophylaxis SCDs Lovenox home today- pt looking forward to going home CM assist with meds Pt Condition on Discharge: Stable Discharge Disposition: Discharge Home Discharge Time: <= 30 minutes Discharge Instructions DIET: Follow Instructions for: As Tolerated, No Restrictions Speech Therapy-Diet Recommends: Regular, Mechanical Soft Activities you can perform: Weight Bearing as Mag Follow up Referrals: PCP Follow-up - 1 Week with [facility] New Medications: Prednisolone (Millipred) 5 Mg Tab 5 MG PO DAILY for COPD for 7 Days, #10 TAB 0 Refills 2 tabs daily esa 3 days then 1 tab po daily for 4 days then DC Albuterol 18 GM Inh (Ventolin Hfa 18 GM Inh) 90 Mcg/Act Aer 2 PUFF INH Q6H for COPD for 30 Days, INHALER Budesonide-Formoterol Inh (Symbicort Inh) 80-4.5 Mcg/Act Aero 1 PUFF INH Q12HR for COPD for 30 Days, #1 INHALER Lansoprazole ODT (Prevacid Solutab ODT) 30 Mg Tab 30 MG PO DAILY for GIpro for 30 Days, #30 TAB Mix with 4 ml water before giving via tube. Oxycodone (Oxycodone) 5 Mg Tab 5 MG PO Q8 PRN for PAIN SCALE 4 TO 10, #25 TAB 0 Refills Tiotropium Inh (Spiriva Handihaler) 18 Mcg Cap 18 MCG INH DAILY for COPD for 30 Days, #1 CAP 1 capsule = 18 mcg King Alberts MD Jul 30, 2017 13:28
[2017-07-30] MEDS ORDERED: BUDESONIDE-FORMOTEROL 80/4.5 MCG INHALER INH SCH (13:45)
--- NOTE | 2017-07-30 14:14 | HHI.PR ---
Addendum to Inpatient Note Addendum Reason: Additional Documentation Additional Information d/w : doing well off antibiotics. Will sign off please call back if any change in clinical condition or questions. Dolores Devlin MD Jul 30, 2017 14:14
[2017-07-30 14:45] VITALS: RESP 20
== END 2017-07-30 17:06 | disposition home or self-care (01) | DRG 208 ==
LOC: NEPE 19:14 → NEDA 21:56 → UNDOADMIN 21:56 → NEDA 22:14 → INTOOBSV 22:14 → NEPGCP 23:58 → OBSVTOIN 07-10 01:36 → N05A 07-13 18:51 → N03A 07-15 06:40 → N05B 07-22 16:11
PROVIDERS: ADMIT Internal Medicine; ATTEND Internal Medicine
PROC: 5A1945Z Respiratory Ventilation, 24-96 Consecutive Hours (ICD-10-PCS; principal; 2017-07-15)
PROC: 05HN33Z Insertion of Infusion Device into Left Internal Jugular Vein, Percutaneous Approach (ICD-10-PCS; 2017-07-15)
PROC: 0BH18EZ Insertion of Endotracheal Airway into Trachea, Via Natural or Artificial Opening Endoscopic (ICD-10-PCS; 2017-07-15)
PROC: 0DB78ZX Excision of Stomach, Pylorus, Via Natural or Artificial Opening Endoscopic, Diagnostic (ICD-10-PCS; 2017-07-16)
DX: J18.9 Pneumonia, unspecified organism (principal); J96.01 Acute respiratory failure with hypoxia; A41.9 Sepsis, unspecified organism; E43 Unspecified severe protein-calorie malnutrition; J96.02 Acute respiratory failure with hypercapnia; I95.9 Hypotension, unspecified; J44.0 Chronic obstructive pulmonary disease with (acute) lower respiratory infection; E87.1 Hypo-osmolality and hyponatremia; R13.10 Dysphagia, unspecified; J44.1 Chronic obstructive pulmonary disease with (acute) exacerbation; N39.0 Urinary tract infection, site not specified; J69.0 Pneumonitis due to inhalation of food and vomit; M50.21 Other cervical disc displacement, high cervical region; F17.210 Nicotine dependence, cigarettes, uncomplicated; E87.6 Hypokalemia; F32.9 Major depressive disorder, single episode, unspecified; F41.9 Anxiety disorder, unspecified; F10.20 Alcohol dependence, uncomplicated; G40.909 Epilepsy, unspecified, not intractable, without status epilepticus; B96.20 Unspecified Escherichia coli [E. coli] as the cause of diseases classified elsewhere; B96.5 Pseudomonas (aeruginosa) (mallei) (pseudomallei) as the cause of diseases classified elsewhere; E03.9 Hypothyroidism, unspecified; D75.89 Other specified diseases of blood and blood-forming organs; E83.39 Other disorders of phosphorus metabolism; E83.42 Hypomagnesemia; K29.70 Gastritis, unspecified, without bleeding; F43.21 Adjustment disorder with depressed mood; Y95 Nosocomial condition; B19.20 Unspecified viral hepatitis C without hepatic coma; Z91.81 History of falling; Z92.21 Personal history of antineoplastic chemotherapy; Z92.3 Personal history of irradiation; Z85.21 Personal history of malignant neoplasm of larynx; Z23 Encounter for immunization
CPT/HCPCS: 31500; 36556; 36600; 70450; 70551; 71010; 71275; 72125; 72156; 74230; 76937; 80048; 80053; 81001; 82550; 82805; 82948; 83605; 83735; 83880; 84100; 84439; 84443; 84481; 84484; 85025; 85027; 85379; 85610; 85730; 87040; 87070; 87077; 87086; 87186; 87205; 87449; 87641; 87804; 88305; 90686; 93005; 93308; 94002; 94003; 94150; 94640; 94664; 94667; 94668; A9579; J0456; J0696; J1120; J1650; J1940; J1956; J2920; J2930; J3010; J3475; J3480; J7030; J7050; J7512; J7613; J7626; P9047; Q2038; Q9967